=== PATIENT | male | born 1950 | race Caucasian/White ===

== ENCOUNTER 2023-11-29 09:48 | Outpatient (OUT) | payer MEDICARE, SELFPAY ==
--- NOTE | 2023-11-29 10:04 | ECG_ITS ---
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
--- NOTE | 2023-11-29 10:04 | XR_ITS ---
The [address] [address] Patient Name: YINA BOYER MRN: [id number] date: 1950 Sex: M Assigned Patient Location: [facility] Current Patient Location: [facility] Accession/Order Number: [id number] Exam Date: 11/29/2023 10:58 Report Date: 11/29/2023 12:29 At the request of: AGUSTÍN JOHANSEN Procedure: XR chest 2V PROCEDURE: XR chest 2V DATE: 11/29/2023 9:58 AM CDT COMPARISONS: None. CLINICAL INDICATION: 73 years Male Preop exam FINDINGS: The cardiomediastinal silhouette and pulmonary vasculature are within normal limits. The lungs are clear. There is no evidence of pleural effusion or pneumothorax. XR/XR chest 2V IMPRESSION: Chest radiograph is within normal limits. Electronically authenticated by: RACHELLE CALL Date: 11/29/2023 12:29
[2023-11-29 11:04] LABS: Basophils Absolute Auto 0.1 10^3/uL (0.0-0.1); Basophils Percent Auto 1.2 % (0.2-2.0); Eosinophils Absolute Auto 0.1 10^3/uL (0.0-0.7); Eosinophils Percent Auto 1.4 % (0.9-7.0); Hematocrit 38.8 % (42.0-54.0); Hemoglobin 13.7 g/dL (14.0-18.0); Immature Granulocytes Abs Auto 0.01 10^3/uL (0.00-0.03); Immature Granulocytes Pct Auto 0.2 % (0.0-0.5); Lymphocytes Absolute Auto 0.6 10^3/uL (1.2-3.8); Lymphocytes Percent Auto 12.1 % (20.5-60.0); Mean Corpuscular HGB Conc 35.3 g/dL (29.9-35.2); Mean Corpuscular Volume 84.9 fL (80.0-94.0); Mean Platelet Volume 9.5 fL (9.5-13.5); Monocytes Absolute Auto 0.5 10^3/uL (0.3-0.8); Monocytes Percent Auto 9.6 % (1.7-12.0); Neutrophils Absolute Auto 3.7 10^3/uL (1.4-6.5); Neutrophils Percent Auto 75.5 % (43.0-75.0); Platelet Count 185 10^3/uL (150-450); Red Blood Count 4.57 10^6/uL (4.70-6.10); Red Cell Distribution Width 14.6 % (11.0-15.0); White Blood Count 4.9 10^3/uL (4.0-11.0)
[2023-11-29 11:30] LABS: INR 1.01; Partial Thromboplastin Time 29.6 sec (22.3-36.2); Prothrombin Time 10.7 sec (9.0-11.6)
--- NOTE | 2023-11-29 11:44 | PM.PRESUREVA ---
History of Present Illness History of Present Illness Chief complaint: prostate ca Narrative: Patient presents for preadmission testing accompanied by his . The patient reports a history of prostate cancer with radiation treatment and Lupron injections. The patient states overall he is feeling well, he continues to have frequency with urination and incomplete bladder emptying but has no other complaints at this time. Review of Systems ROS Narrative REVIEW OF SYSTEMS: Negative except as stated in HPI, ten or more systems reviewed. Constitutional: No fever, chills, weakness ENT: No sore throat or epistaxis Cardiovascular: No edema, chest pain, palpitations, or activity intolerance Respiratory: No shortness of breath, cough, or wheezing Musculoskeletal: No joint pain or swelling Gastrointestinal: No abdominal pain, constipation, diarrhea, or vomiting Genitourinary: No dysuria or hematuria Neurological: No numbness, tingling, weakness, or headache Psychiatric: No mood changes PFSH PFSH Medical History (Updated 11/29/23 @ 11:45 by Janette Cesar NP) Hypertension ?I10 - Essential (primary) hypertension (ICD-10) High cholesterol ?E78.00 - Pure hypercholesterolemia, unspecified (ICD-10) Prostate cancer ?C61 - Malignant neoplasm of prostate (ICD-10) Diabetes ?E11.9 - Type 2 diabetes mellitus without complications (ICD-10) BPH (benign prostatic hyperplasia) ?N40.0 - Benign prostatic hyperplasia without lower urinary tract symptoms (ICD-10) Elevated PSA ?R97.20 - Elevated prostate specific antigen [PSA] (ICD-10) Surgical History (Updated 11/29/23 @ 11:14 by Janette Cesar NP) History of tonsillectomy ?Z90.89 - Acquired absence of other organs (ICD-10) Hx of prostate biopsy ?Z98.890 - Other specified postprocedural states (ICD-10) H/O colonoscopy ?Z98.890 - Other specified postprocedural states (ICD-10) Family History (Updated 11/29/23 @ 11:14 by Janette Cesar NP) Other Family history of aneurysm Family history of cancer Family history of diabetes mellitus Family history of stroke Heart disease Social History (Updated 11/29/23 @ 10:18 by Janette Cesar NP) Within the past year, how often did you have a drink containing alcohol: 2-4 times a month Smoking status: Never smoker Non-prescribed substance use: denies use Highest level of school completed/degree received: some college, no degree Meds Home Medications and Allergies Home Medications ?Medication ?Instructions ?Recorded ?Confirmed ?Type allopurinol 100 mg tablet 100 mg PO DAILY 11/29/23 11/29/23 History amlodipine 5 mg tablet 5 mg PO QPM 11/29/23 11/29/23 History apple cider vinegar 600 mg capsule mg PO 11/29/23 History bicalutamide 50 mg tablet 50 mg PO DAILY 11/29/23 11/29/23 History chlorthalidone 25 mg tablet 25 mg PO DAILY 11/29/23 11/29/23 History coenzyme Q10 30 mg capsule (Co 30 mg PO DAILY 11/29/23 11/29/23 History Q-10) cyanocobalamin (vitamin B-12) 1,000 mcg PO DAILY 11/29/23 11/29/23 History 1,000 mcg tablet (Vitamin B-12) empagliflozin 25 mg tablet 25 mg PO DAILY 11/29/23 11/29/23 History (Jardiance) metformin 1,000 mg tablet 1,000 mg PO BID 11/29/23 11/29/23 History metoprolol succinate 50 mg 50 mg PO DAILY 11/29/23 11/29/23 History tablet,extended release 24 hr omega-3 fatty acids 500 mg PO BID 11/29/23 11/29/23 History rosuvastatin 40 mg tablet 20 mg PO DAILY 11/29/23 11/29/23 History trazodone 50 mg tablet 50 mg PO DAILY 11/29/23 11/29/23 History Allergies Allergy/AdvReac Type Severity Reaction Status Date / Time bee venom protein (honey bee) Allergy swelling Verified 11/29/23 11:43 Exam Narrative Exam Narrative: Constitutional: Awake, alert, comfortable, well-appearing, nontoxic, interactive, vital signs as charted Head: Normocephalic, atraumatic Neck: Supple, normal appearance, normal range of motion, no meningeal signs, no lymphadenopathy Respiratory: No respiratory distress, breath sounds clear Cardiovascular: Regular rate and rhythm, strong and regular heart tones Abdomen: Nontender, normal bowel sounds, soft, no CVA tenderness Musculoskeletal: Normal gait, no swelling or edema Skin: No rashes or induration, no lesions, only visible skin inspected Neuro: No neurological deficits, normal sensation Psychiatric: Oriented ?3, normal affect Assessment and Plan Assessment and Plan (1) Prostate cancer: Plan [place] seed implant scheduled with Dr. Pisano December 13, 2023.
[2023-11-29 12:04] LABS: Anion Gap 13.9; BUN Creatinine Ratio 20.8; Calcium 9.5 mg/dL (8.5-10.1); Carbon Dioxide 28.5 mmol/L (21.0-32.0); Chloride 97 mmol/L (98-107); Estimated GFR (African America >60 (>=60); Estimated GFR (Non-African Ame >60 (>=60); Glucose 155 mg/dL (74-106); Potassium 3.4 mmol/L (3.5-5.1); Sodium 136 mmol/L (136-145)
== END 2023-11-29 09:49 | disposition home or self-care (01) ==
PROVIDERS: PCP Internal Medicine; Visit Provider Urology
DX: Z01.810 Encounter for preprocedural cardiovascular examination (principal); Z01.812 Encounter for preprocedural laboratory examination; Z01.818 Encounter for other preprocedural examination; C61 Malignant neoplasm of prostate
CPT/HCPCS: 71046; 80048; 85025; 85610; 85730; 93005; G0463

== ENCOUNTER 2023-12-13 11:24 | Day surgery (SDC) | payer MEDICARE, SELFPAY ==
[2023-11-29 11:15] VITALS: BP 126/79; PULSE 59; TEMP 36.3; O2SAT 100; BMI 33.6
[2023-12-13] VITALS (9 sets, daily range): BP systolic 114–131; BP diastolic 64–90; PULSE 61–73; TEMP 36.1–36.5; O2SAT 92–97; BMI 33.6
--- OUTSIDE RECORDS SUMMARY | 2023-12-13 11:46 | XMS_ITS | CCD ---
Author Organization [facility] CliniSyde Care Team Providers Care Senior Environmental Scientist Name Role Phone SRIRAM BREWSTER Primary Care Physician Unavail able Sriram Brewster DO Unavailable Sriram Brewster DO Primary Care Provider DO Sriram Brewster Primary Care Provider MD Ines Pisano Attending Provider MD Josi Capone Attending Provider [phone] Josi Capone MD Unavailable JOSI CAPONE Referring Unavailable DANISHA ZENDEJAS Attending Unavailable DO Sriram Brewster Primary Care Provider MD Primo Fisher Attending Provider MD Josi Capone Referring Provider [phone] Ines Pisano. Attending Unavailable Josi CAPONE Referring Unavailable Josi CAPONE Attending Unavailable Ines Pisano. Attending Unavailable Ines Pisano. Attending Unavailable Josi CAPONE Attending Unavailable Ines Pisano. Attending Unavailable Ines Pisano Attending Unavailable Sriram Brewster Primary Care Unavailable Ines Pisano Admitting Unavailable Ines Pisano Attending Unavailable Deborah, Sriram Primary Care Unavailable Josi Capone P Admitting Unavailable Josi Capone P Attending Unavailable Sriram Brewster Primary Care Unavailable Josi Capone Referring Unavailable Primo Fisher Admitting Unavailable Primo Fisher Attending Unavailable Deborah Sriram Primary Care Unavailable Josi Capone Admitting Unavailable Josi Capone Attending Unavailable SRIRAM BREWSTER Attending Unavailable SRIRAM BREWSTER Referring Unavailable ROSE THORNE Attending Unavailable SRIRAM BREWSTER Attending Unavailable SRIRAM BREWSTER Referring Unavailable SRIRAM BREWSTER Attending Unavailable SRIRAM BREWSTER Attending Unavailable Verónica RAMOS Referring Unavailable Verónica RAMOS Attending Unavailable IRINA CABEZAS Referring Unavailable ENGVerónica WILSON Attending Unavailable ZENA ZENDEJAS Referring Unavailable ENGVerónica WILSON Attending Unavailable ENGVerónica WILSON Attending Unavailable ENGVerónica WILSON Attending Unavailable ENGVerónica WILSON Attending Unavailable ENGMEREDITHRVerónica Attending Unavailable ENGELERVerónica Attending Unavailable IRINA CABEZAS Attending Unavailable Verónica RAMOS Attending Unavailable Verónica RAMOS Attending Unavailable IRINA CABEZAS Referring Unavailable Verónica RAMOS Attending Unavailable Allergies Allergy Classification Reported Allergen(s) Allergy Type Date of Onset Reaction(s) Facility (3 sources) Losartan Drug Allergy 3 Dizziness [facility] Work Phone: (1 source) No Known Medication Allergies; Translations: [No Known Medication Allergies] Propensity to adverse reactions (disorder) [facility] Repository Medications Current Medications Medication Drug Class(es) Dates Sig (Normalized) Sig (Original) allopurinol 100 mg oral tablet (20 sources) Xanthine Oxidase Inhibitor Start: 2009 take 1 tablet by mouth once daily allopurinol (ZYLOPRIM) 100 mg tablet Take 100 mg by mouth once daily. 2009 Active amLODIPine 5 mg oral tablet (20 sources) Dihydropyridine Calcium Channel Mariana Start: 01-02-2019 take 1 mg by mouth once daily amLODIPine 5 mg Tab mg tab(s), Oral, Daily Start Date: 04/21/23 Status: Ordered bicalutamide 50 mg oral tablet (20 sources) Androgen Receptor Inhibitor Start: 08-11-2023 End: 05-20-2024 take 1 tablet by mouth once daily bicalutamide (CASODEX) 50 mg tablet Take 1 tablet by mouth once daily. 30 tablet 6 10/23/2023 05/20/2024 Active chlorthalidone 25 mg oral tablet (20 sources) Thiazide-like Diuretic Start: 01-02-2019 End: 08-22-2023 take 1 mg by mouth once daily chlorthalidone 25 mg Tab mg tab(s), Oral, Daily Start Date: 04/21/23 Status: Ordered cider vinegar 300 mg oral tablet (3 sources) Start: 06-30-2023 take 300 mg by mouth once daily in the morning Apple Cider Vinegar Active 300 MG PO Every morning June 30, 2023 12:00am Continuous Blood Gluc Paper Conservator (FreeStyle Cynthia 3 [place]) device (3 sources) Start: 05-08-2023 Continuous Blood Gluc Paper Conservator (FreeStyle Cynthia 3 [place]) device Indications: 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) 1 Device See administration instructions 1 each 0 05/08/2023 Active Continuous Blood Gluc Sensor (FreeStyle Cynthia 2 Sensor) misc (3 sources) Start: 09-01-2022 Continuous Blood Gluc Sensor (FreeStyle Cynthia 2 Sensor) misc USE DIRECTED FOR 14 DAYS 0 09/01/2022 Active Continuous Blood Gluc Sensor (FreeStyle Cynthia 3 Sensor) misc (3 sources) Start: 05-08-2023 Continuous Blood Gluc Sensor (FreeStyle Cynthia 3 Sensor) misc Indications: 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) Inject 1 Device under the skin every 14 (fourteen) days 6 each 3 05/08/2023 Active [place] 4-Gzy-Bqg-Fish Oil (3 sources) Start: 06-30-2023 take 300-1000 mg by mouth twice daily [place] 4-Rct-Cqx-Fish Oil (Fish Oil) 300-1,000 mg capsule Active 1 CAP PO Twice daily June 30, 2023 12:00am empagliflozin 25 mg oral tablet (20 sources) Sodium-Glucose Cotransporter 2 Inhibitor Start: 06-30-2023 take 1 tablet by mouth once daily in the morning Empagliflozin (Jardiance) 25 mg tablet Active 12.5 MG PO Every morning June 30, 2023 12:00am Start: 04-21-2023 Jardiance Oral , qAM Start Date: 04/21/23 Status: Ordered Start: 01-09-2023 take 0.5 tablet by m outh once daily Jardiance 25 MG Indications: 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) TAKE 1/2 (ONE-HALF) OF A TABLET BY MOUTH DAILY 30 tablet 3 01/09/2023 Active Fish Oils (3 sources) Start: 04-21-2023 Fish Oil Oral Start Date: 04/21/23 Status: Ordered metFORMIN hydrochloride 1000 mg oral tablet (20 sources) Biguanide Start: 03-28-2023 take 1 tablet by mouth twice daily at mealtime metFORMIN (Glucophage) 1000 MG tablet Indications: 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) TAKE 1 TABLET BY MOUTH TWICE DAILY WITH MEALS 180 tablet 3 03/28/2023 Active Start: 01-02-2019 take 500 mg by mouth twice teresita ly Metformin Active 500 MG PO Twice daily January 02, 2019 12:00am metFORMIN hydrochloride 500 mg / repaglinide 2 mg oral tablet (3 sources) Glinide, Biguanide Start: 04-21-2023 metformin-repaglinide 500 mg-2 mg oral tablet 1 tab(s), Oral, BID, 60 tab(s), within 30 minutes to immediately before a meal; skip dose if meal skipped Start Date: 04/21/23 Status: Ordered 24 hr metoprolol succinate 50 mg extended release oral capsule (20 sources) beta-Adrenergic Mariana Start: 08-22-2023 take 50 mg by mouth once daily Metoprolol Succinate Active 50 MG PO Daily August 22, 2023 12:00am Start: 12-08-2022 take 1 tablet by kristy th once daily metoprolol succinate XL (Toprol-XL) 50 MG 24 hr tablet Indications: Hypertension, unspecified type (CMS/HCC) TAKE 1 TABLET BY MOUTH DAILY 90 tablet 3 12/08/2022 Active Start: 01-02-2019 End: 08-22-2023 take 1 mg by mouth twice daily Metoprolol tartrate 50 mg Tab mg tab(s), Oral, BID Start Date: 04/21/23 Status: Ordered rosuvastatin calcium 40 mg oral tablet (20 sources) HMG-CoA Reductase Inhibitor Start: 09-08-2023 rosuvastatin 40 mg T ab Refills(s) 0 Start Date: 09/08/23 Status: Ordered Start: 08-22-2023 take 1 tablet by kristy th once daily Rosuvastatin (Crestor) 10 mg tablet Active 10 MG PO Daily August 22, 2023 12:00am rosuvastatin (CR ESTOR) 40 mg tablet Take 20 mg by mouth once daily. Active terbinafine hydrochloride 10 mg/ml topical cream (2 sources) Allylamine Antifungal Start: 12-12-2022 End: 05-08-2023 terbinafine (LamISIL AT) 1 % cream Indications: Tinea corporis Apply to face bid 30 g 2 12/12/2022 05/08/2023 Discontinued (Therapy completed) traZODone hydrochloride 50 mg oral tablet (20 sources) Serotonin Reuptake Inhibitor Start: 02-22-2023 traZODONE 50 mg Tab mg tab(s), Oral Start Date: 04/21/23 Status: Ordered ubidecarenone 100 mg oral capsule (1 source) Start: 08-22-2023 Coenzyme Q10 (Coq-10) 100 mg capsule Active 100 MG PO Daily August 22, 2023 12:00am vitamin b12 1 mg oral tablet (20 sources) Vitamin B12 Start: 05-09-2023 take 1 tablet by mouth once daily cyanocobalamin (VITAMIN B-12) 1,000 mcg tab Take 1,000 mcg by mouth once daily. 05/09/2023 Active Completed/Discontinued Medications Medication Drug Class(es) Dates Sig (Normalized) Sig (Original) atorvastatin 20 mg oral tablet (20 sources) HMG-CoA Reductase Inhibitor Start: 04-21-2023 End: 09-29-2023 take 1 tablet by mouth once daily atorvastatin (LIPITOR) 20 mg tablet Take 20 mg by mouth once daily. 04/21/2023 09/29/2023 Discontinued Start: 03-01-2023 take 1 tablet by kristy th in the morning atorvastatin (Lipitor) 40 MG tablet Indications: Primary hypertension (CMS/HCC) Take 1 tablet (40 mg) by mouth in the morning. 90 tablet 3 03/01/2023 Active ciprofloxacin 500 mg oral tablet (2 sources) Quinolone Antimicrobial Start: 07-14-2023 End: 08-22-2023 take 1 tablet by mouth every two hours Ciprofloxacin Hcl (Cipro) 500 mg tablet Discontinued 500 MG PO Q12H July 14, 2023 12:00am August 22, 2023 11:11am administer dose at least 2 hrs before/6 hrs after dairy products, calcium, zinc, and/or iron-containing products Problems Active Problems Problem Classification Problem Date Documented Da te Episodic/Chronic Administrative/social admission (3 sources) Patient encounter status; Translations: [Other specified counseling] Onset: 02-09-2023 02-09-2023 Episodic Cancer of prostate (20 sources) Malignant neoplasm of prostate; Translations: [Malignant tumor of prostate] Onset: 07-27-2023 Chronic Chronic obstructive pulmonary disease and bronchiectasis (6 sources) Pulmonary emphysema; Translations: [Emphysema, unspecified] Onset: 05-08-2023 04-21-2023 Chronic Deficiency and other anemia (2 sources) Anemia; Translations: [Anemia, unspecified] 05-08-2023 Episodic Diabetes mellitus without complication (9 sources) Type 2 diabetes mellitus; Translations: [Type 2 diabetes mellitus with other diabetic neurological complication] Onset: 12-05-2022 04-21-2023 Chronic Diabetes mellitus without complication (2 sources) Glycosuria; Translations: [Glycosuria] Onset: 09-08-2023 Episodic Disorders of lipid metabolism (3 sources) Hyperlipidemia; Translations: [Hyperlipidemia, unspecified] Onset: 12-05-2022 12-05-2022 Chronic Essential hypertension (6 sources) Hypertensive disorder; Translations: [Essential (primary) hypertension] Onset: 12-05-2022 Resolved: 02-09-2023 12-05-2022 Chronic Genitourinary symptoms and ill-defined conditions (1 source) Urgent desire to urinate; Translations: [Urgency of urination] Onset: 04-21-2023 Episodic Gout and other crystal arthropathies (3 sources) Gout; Translations: [Gout, unspecified] Onset: 12-05-2022 12-05-2022 Chronic Hyperplasia of prostate (7 sources) Benign prostatic hypertrophy with outflow obstruction; Translations: [Benign prostatic hyperplasia with lower urinary tract symptoms] Onset: 04-21-2023 Chronic Miscellaneous mental health disorders (3 sources) Primary insomnia; Translations: [Primary insomnia] Onset: 02-09-2023 02-09-2023 Chronic Neoplasms of unspecified nature or uncertain behavior (1 source) Neoplastic disease; Translations: [Neoplasm of unspecified behavior of unspecified site] 08-16-2023 Episodic Nutritional deficiencies (3 sources) Cobalamin deficiency; Translations: [Deficiency of other specified B group vitamins] 05-08-2023 Episodic Other nervous system disorders (3 sources) Bilateral carpal tunnel syndrome; Translations: [Carpal tunnel syndrome, bilateral upper limbs] Onset: 12-05-2022 12-05-2022 Chronic Other nutritional; endocrine; and metabolic disorders (3 sources) Obesity caused by energy imbalance; Translations: [Other obesity due to excess calories] Onset: 12-05-2022 12-05-2022 Chronic Other nutritional; endocrine; and metabolic disorders (3 sources) Body mass index 30+ - obesity; Translations: [Body mass index (BMI) 32.0-32.9, adult] Onset: 02-09-2023 02-09-2023 Chronic Other nutritional; endocrine; and metabolic disorders (3 sources) Hyperuricemia; Translations: [Hyperuricemia without signs of inflammatory arthritis and tophaceous disease] Onset: 02-09-2023 02-09-2023 Episodic Residual codes; unclassified (3 sources) Family history of cancer; Translations: [Family history of malignant neoplasm of prostate] Onset: 04-21-2023 Episodic Residual codes; unclassified (6 sources) Family history of prostate cancer; Translations: [Family history of malignant neoplasm of prostate] Onset: 05-08-2023 04-21-2023 Episodic Residual codes; unclassified (2 sources) Amnesia; Translations: [Other amnesia] 05-08-2023 Episodic Past or Other Problems Problem Classification Problem Date Documented Da te Episodic/Chronic Other nutritional; endocrine; and metabolic disorders (3 sources) Metabolic syndrome X; Translations: [Metabolic syndrome] Onset: 12-05-2022 Resolved: 02-09-2023 02-09-2023 Chronic Other screening for suspected conditions (not mental disorders or infectious disease) (12 sources) Raised prostate specific antigen; Translations: [Elevated prostate specific antigen [PSA]] Onset: 12-05-2022 Episodic Results Test Name Value Interpretation Reference Range Facility [facility] 11-30-2023 CNOV Office Visit (RADTSA ) -- YINA BOYER ([id number]) 1950 Date Time Provider Department 11/30/23 8:30 AM Verónica RAMOS During your visit today, we recorded the following information about you: Verónica Ramos MD 11/30/2023 9:00 AM Signed UNIVERSAL PROTOCOL / SAFETY CHECKLIST Procedure to be Performed: Prostate volume study Sign In: A Moment of CARE was completed. Personnel directly involved with the procedure wore the appropriate PPE (Personal Protective Equipment). Patient/Surrogate Stated/Verified: PATIENT VERIFIED(optional for EMERGENT procedures): Patient name, Date of , Relevant allergies, and The intended procedure Time Out Communication: Intended patient and procedure match the source documents. Consent documented and matches the intended procedure. Sign Out: SIGN OUT (optional for EMERGENT procedures): No specimen collected. All instruments, equipment, possible retained foreign bodies accounted for. Verónica Ramos MD Allergies As of Date: 11/30/2023 (No Known Allergies) Date Reviewed: 11/06/2023 Reviewed by: Janette Merino RN - Fully Assessed Primary Visit Diagnosis:Malignant neoplasm of prostate (HCC) [C61] Prescriptions as of 11/30/2023 - bicalutamide (CASODEX) 50 mg tablet Take 1 tablet by mouth once daily. - rosuvastatin (CRESTOR) 40 mg tablet Take 20 mg by mouth once daily. - allopurinol (ZYLOPRIM) 100 mg tablet Take 100 mg by mouth once daily. - amLODIPine (NORVASC) 5 mg tablet Take 5 mg by mouth once daily. - chlorthalidone (HYGROTON) 25 mg tablet Take 25 mg by mouth once daily. - JARDIANCE 25 mg tablet Take 25 mg by mouth daily with breakfast. - metFORMIN (GLUCOPHAGE) 1,000 mg tablet Take 1,000 mg by mouth two times a day with meals. - metoprolol succinate ER (TOPROL XL) 50 mg 24 hr tablet Take 50 mg by mouth once daily. - traZODone (DESYREL) 50 mg tablet Take 50 mg by mouth daily at bedtime. - cyanocobalamin (VITAMIN B-12) 1,000 mcg tab Take 1,000 mcg by mouth once daily. Problem List As Of Date 11/30/2023 Noted Resolved Prostate cancer (HCC) [C61] 08/16/2023 Encounter Status:Closed by Verónica RAMOS on 9/5/24 [facility] CNOVon 11-06-2023 CNOV Office Visit (RADTSA ) -- YINA BOYER ([id number]) 1950 M Date Time Provider Department 11/06/23 10:30 AM Verónica RAMOS RADTSA During your visit today, we recorded the following information about you: Temperature Pulse Respiration Blood pressure 97.4 degrees 64/minute 18/minute 132/86 Weight 105.4 kg Verónica Ramos MD 11/06/2023 10:58 AM Signed Radiation Oncology - On Treatment Review (OTR) Note PATIENT NAME: Yina Boyer PATIENT DIAGNOSIS: Prostate adenocarcinoma, initial PSA 6.2, biopsy Nunda score 4 + 4 = 8 (grade group 4), clinical stage T2a, N0, M0, stage IIC [T1-T2, N0, M0, PSA <20, GG 4] (AJCC 8th ed.), s/p TRUS Random and MR Targeted biopsy. Prostate cancer (C61), 2019 NCCN Risk Group: High Risk Group COURSE: definitive Current dose: 4320 cGy in 24 fx Planned dose: 4500 cGy in 25 fx SUBJECTIVE: Doing well. PHYSICAL EXAM: 11/06/23 1047 BP: 132/86 Pulse: 64 Resp: 18 Temp: 36.3 ?C (97.4 ?F) SpO2: 97% Weight: 105.4 kg (232 lb 5.8 oz) KPS: 100 General Appearance: Alert and oriented. No acute distress. IMAGING/LAB RESULTS: WBC (k/uL) Date Value 10/12/2023 4.66 RBC (m/uL) Date Value 10/12/2023 5.17 Hemoglobin (g/dL) Date Value 10/12/2023 14.7 Hematocrit (%) Date Value 10/12/2023 43.0 MCV (fL) Date Value 10/12/2023 83.2 MCH (pg) Date Value 10/12/2023 28.4 MCHC (g/dL) Date Value 10/12/2023 34.2 RDW-CV (%) Date Value 10/12/2023 13.8 Platelet Count (k/uL) Date Value 10/12/2023 175 MPV (fL) Date Value 10/12/2023 10.1 TOXICITY ASSESSMENT (CTC v4.0): Fatigue:grade 1 Radiation Dermatitis: grade 0 - No symptoms Diarrhea:grade 1 Proctitis: grade 0 - No symptoms Urinary frequency: grade 1 Dysuria: grade 0 - No symptoms Urinary incontinence: grade 0 (No symptoms) Urinary retention: grade 0 - No symptoms Treatment chart checked: Yes Patient treatment site reviewed and verified:Yes Port films reviewed and current:Yes Medications started: None ASSESSMENT/PLAN: Patient doing well. Patient will finish tomorrow. Has follow-up scheduled for brachytherapy volume study and brachytherapy implant. Verónica Ramos MD Allergies As of Date: 11/06/2023 (No Known Allergies) Date Reviewed: 11/06/2023 Reviewed by: Janette Merino RN - Fully Assessed Primary Visit Diagnosis:Malignant neoplasm of prostate (HCC) [C61] Prescriptions as of 11/06/2023 - bicalutamide (CASODEX) 50 mg tablet Take 1 tablet by mouth once daily. - rosuvastatin (CRESTOR) 40 mg tablet Take 20 mg by mouth once daily. - allopurinol (ZYLOPRIM) 100 mg tablet Take 100 mg by mouth once daily. - amLODIPine (NORVASC) 5 mg tablet Take 5 mg by mouth once daily. - chlorthalidone (HYGROTON) 25 mg tablet Take 25 mg by mouth once daily. - JARDIANCE 25 mg tablet Take 25 mg by mouth daily with breakfast. - metFORMIN (GLUCOPHAGE) 1,000 mg tablet Take 1,000 mg by mouth two times a day with meals. - metoprolol succinate ER (TOPROL XL) 50 mg 24 hr tablet Take 50 mg by mouth once daily. - traZODone (DESYREL) 50 mg tablet Take 50 mg by mouth daily at bedtime. - cyanocobalamin (VITAMIN B-12) 1,000 mcg tab Take 1,000 mcg by mouth once daily. Problem List As Of Date 11/06/2023 Noted Resolved Prostate cancer (HCC) [C61] 08/16/2023 Encounter Status:Closed by Verónica RAMOS on 11/06/23 [facility] CNOVon 10-30-2023 CNOV Office Visit (RADTSA ) -- YINA BOYER ([id number]) 1950 M Date Time Provider Department 10/30/23 10:30 AM Verónica RAMOS RADTSA During your visit today, we recorded the following information about you: Temperature Pulse Respiration Blood pressure 97.6 degrees 57/minute 16/minute 129/84 Weight 105.4 kg Verónica Ramos MD 10/30/2023 10:52 AM Signed Radiation Oncology - On Treatment Review (OTR) Note PATIENT NAME: Yina Boyer PATIENT DIAGNOSIS: Prostate adenocarcinoma, initial PSA 6.2, biopsy Darlin score 4 + 4 = 8 (grade group 4), clinical stage T2a, N0, M0, stage IIC [T1-T2, N0, M0, PSA <20, GG 4] (AJCC 8th ed.), s/p TRUS Random and MR Targeted biopsy. Prostate cancer (C61), 2019 NCCN Risk Group: High Risk Group COURSE: definitive Current dose: 3420 cGy in 19 fx Planned dose: 4500 cGy in 25 fx SUBJECTIVE: Doing well. Mild suprapubic discomfort. No other changes or problems. PHYSICAL EXAM: 10/30/23 1037 BP: 129/84 Pulse: (!) 57 Resp: 16 Temp: 36.4 ?C (97.6 ?F) SpO2: 97% Weight: 105.4 kg (232 lb 5.8 oz) KPS: 100 General Appearance: Alert and oriented. No acute distress. IMAGING/LAB RESULTS: WBC (k/uL) Date Value 10/12/2023 4.66 RBC (m/uL) Date Value 10/12/2023 5.17 Hemoglobin (g/dL) Date Value 10/12/2023 14.7 Hematocrit (%) Date Value 10/12/2023 43.0 MCV (fL) Date Value 10/12/2023 83.2 MCH (pg) Date Value 10/12/2023 28.4 MCHC (g/dL) Date Value 10/12/2023 34.2 RDW-CV (%) Date Value 10/12/2023 13.8 Platelet Count (k/uL) Date Value 10/12/2023 175 MPV (fL) Date Value 10/12/2023 10.1 TOXICITY ASSESSMENT (CTC v4.0): Fatigue:grade 1 Radiation Dermatitis: grade 0 - No symptoms Diarrhea:grade 1 Proctitis: grade 0 - No symptoms Urinary frequency: grade 1 Dysuria: grade 0 - No symptoms Urinary incontinence: grade 0 (No symptoms) Urinary retention: grade 0 - No symptoms Treatment chart checked: Yes Patient treatment site reviewed and verified:Yes Port films reviewed and current:Yes Medications started: None ASSESSMENT/PLAN: Patient doing well. Discussed brachytherapy component of treatment with patient and his . Chart and images reviewed. Continue radiation as outlined. Verónica Ramos MD Allergies As of Date: 10/30/2023 (No Known Allergies) Date Reviewed: 10/30/2023 Reviewed by: Tariq Nava LPN - Fully Assessed Reason for Visit: Radiotherapy On-treatment Visit [1722] Primary Visit Diagnosis:Malignant neoplasm of prostate (HCC) [C61] Prescriptions as of 10/30/2023 - bicalutamide (CASODEX) 50 mg tablet Take 1 tablet by mouth once daily. - rosuvastatin (CRESTOR) 40 mg tablet Take 20 mg by mouth once daily. - allopurinol (ZYLOPRIM) 100 mg tablet Take 100 mg by mouth once daily. - amLODIPine (NORVASC) 5 mg tablet Take 5 mg by mouth once daily. - chlorthalidone (HYGROTON) 25 mg tablet Take 25 mg by mouth once daily. - JARDIANCE 25 mg tablet Take 25 mg by mouth daily with breakfast. - metFORMIN (GLUCOPHAGE) 1,000 mg tablet Take 1,000 mg by mouth two times a day with meals. - metoprolol succinate ER (TOPROL XL) 50 mg 24 hr tablet Take 50 mg by mouth once daily. - traZODone (DESYREL) 50 mg tablet Take 50 mg by mouth daily at bedtime. - cyanocobalamin (VITAMIN B-12) 1,000 mcg tab Take 1,000 mcg by mouth once daily. Problem List As Of Date 10/30/2023 Noted Resolved Prostate cancer (HCC) [C61] 08/16/2023 Encounter Status:Closed by Verónica RAMOS on 10/30/23 [facility] CNOVon 10-23-2023 CNOV Office Visit (RADTSA ) -- YINA BOYER ([id number]) 1950 M Date Time Provider Department 10/23/23 10:45 AM Verónica RAMOS RADDONALDOA During your visit today, we recorded the following information about you: Temperature Pulse Respiration Blood pressure 97.4 degrees 66/minute 16/minute 128/85 Weight 106 kg Verónica Ramos MD 10/23/2023 10:46 AM Signed Radiation Oncology - On Treatment Review (OTR) Note PATIENT NAME: Yina Boyer PATIENT DIAGNOSIS: Prostate adenocarcinoma, initial PSA 6.2, biopsy Dariln score 4 + 4 = 8 (grade group 4), clinical stage T2a, N0, M0, stage IIC [T1-T2, N0, M0, PSA <20, GG 4] (AJCC 8th ed.), s/p TRUS Random and MR Targeted biopsy. Prostate cancer (C61), 2019 NCCN Risk Group: High Risk Group COURSE: definitive Current dose: 2520 cGy in 14 fx Planned dose: 4500 cGy in 25 fx SUBJECTIVE: Doing well. Some issues with sleep and restless legs. Still very active. No significant bowel or bladder changes. PHYSICAL EXAM: 10/23/23 1030 BP: 128/85 Pulse: 66 Resp: 16 Temp: 36.3 ?C (97.4 ?F) SpO2: 98% Weight: 106 kg (233 lb 11 oz) KPS: 100 General Appearance: Alert and oriented. No acute distress. IMAGING/LAB RESULTS: WBC (k/uL) Date Value 10/12/2023 4.66 RBC (m/uL) Date Value 10/12/2023 5.17 Hemoglobin (g/dL) Date Value 10/12/2023 14.7 Hematocrit (%) Date Value 10/12/2023 43.0 MCV (fL) Date Value 10/12/2023 83.2 MCH (pg) Date Value 10/12/2023 28.4 MCHC (g/dL) Date Value 10/12/2023 34.2 RDW-CV (%) Date Value 10/12/2023 13.8 Platelet Count (k/uL) Date Value 10/12/2023 175 MPV (fL) Date Value 10/12/2023 10.1 TOXICITY ASSESSMENT (CTC v4.0): Fatigue:grade 1 Radiation Dermatitis: grade 0 - No symptoms Diarrhea:grade 1 Proctitis: grade 0 - No symptoms Urinary frequency: grade 1 Dysuria: grade 0 - No symptoms Urinary incontinence: grade 0 (No symptoms) Urinary retention: grade 0 - No symptoms Treatment chart checked: Yes Patient treatment site reviewed and verified:Yes Port films reviewed and current:Yes Medications started: None ASSESSMENT/PLAN: Patient doing well. Chart and images reviewed. Continue radiation as outlined. Verónica Ramos MD Allergies As of Date: 10/23/2023 (No Known Allergies) Date Reviewed: 10/23/2023 Reviewed by: Tariq Nava LPN - Fully Assessed Reason for Visit: Radiotherapy On-treatment Visit [1722] Primary Visit Diagnosis:Malignant neoplasm of prostate (HCC) [C61] Order(s):bicalutamide (CASODEX) 50 mg tabletTake 1 tablet by mouth once daily.Disp: 30 tabletRfl: 6 Prescriptions as of 10/23/2023 - bicalutamide (CASODEX) 50 mg tablet Take 1 tablet by mouth once daily. - rosuvastatin (CRESTOR) 40 mg tablet Take 20 mg by mouth once daily. - allopurinol (ZYLOPRIM) 100 mg tablet Take 100 mg by mouth once daily. - amLODIPine (NORVASC) 5 mg tablet Take 5 mg by mouth once daily. - chlorthalidone (HYGROTON) 25 mg tablet Take 25 mg by mouth once daily. - JARDIANCE 25 mg tablet Take 25 mg by mouth daily with breakfast. - metFORMIN (GLUCOPHAGE) 1,000 mg tablet Take 1,000 mg by mouth two times a day with meals. - metoprolol succinate ER (TOPROL XL) 50 mg 24 hr tablet Take 50 mg by mouth once daily. - traZODone (DESYREL) 50 mg tablet Take 50 mg by mouth daily at bedtime. - cyanocobalamin (VITAMIN B-12) 1,000 mcg tab Take 1,000 mcg by mouth once daily. Problem List As Of Date 10/23/2023 Noted Resolved Prostate cancer (HCC) [C61] 08/16/2023 Prescriptions ordered this encounter Disp Refills Start End BICALUTAMIDE 50 MG TABLET 30 t* 6 10/23/2023 05/20/2024 Route: ORAL Sig: Take 1 tablet by mouth once daily. Medications Discontinued During This Encounter Prescriptions - bicalutamide (CASODEX) 50 mg tablet (Discontinued) Take 1 tablet by mouth once daily. 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 Prostate cancer (C61), 2019 NCCN Risk Group: High Risk Group COURSE: definitive Current dose: 1620 cGy in 9 fx Planned dose: 4500 cGy in 25 fx SUBJECTIVE: Mild increase in stool frequency. Mild scrotal discomfort. No dysuria. No other new issues or problems. PHYSICAL EXAM: 10/16/23 1036 BP: 127/77 Pulse: 60 Resp: 18 Temp: 36 ?C (96.8 ?F) TempSrc: Temporal SpO2: 98% Weight: 105.4 kg (232 lb 5.8 oz) KPS: 100 General Appearance: Alert and oriented. No acute distress. IMAGING/LAB RESULTS: WBC (k/uL) Date Value 10/12/2023 4.66 RBC (m/uL) Date Value 10/12/2023 5.17 Hemoglobin (g/dL) Date Value 10/12/2023 14.7 Hematocrit (%) Date Value 10/12/2023 43.0 MCV (fL) Date Value 10/12/2023 83.2 MCH (pg) Date Value 10/12/2023 28.4 MCHC (g/dL) Date Value 10/12/2023 34.2 RDW-CV (%) Date Value 10/12/2023 13.8 Platelet Count (k/uL) Date Value 10/12/2023 175 MPV (fL) Date Value 10/12/2023 10.1 TOXICITY ASSESSMENT (CTC v4.0): Fatigue:grade 1 Radiation Dermatitis: grade 0 - No symptoms Diarrhea:grade 1 Proctitis: grade 0 - No symptoms Urinary frequency: grade 1 Dysuria: grade 0 - No symptoms Urinary incontinence: grade 0 (No symptoms) Urinary retention: grade 0 - No symptoms Treatment chart checked: Yes Patient treatment site reviewed and verified:Yes Port films reviewed and current:Yes Medications started: None ASSESSMENT/PLAN: Patient doing well. Discussed diet modification and Imodium for diarrhea if needed. 1Chart and imaging reviewed. Continue radiation as outlined. Verónica Ramos MD Allergies As of Date: 10/16/2023 (No Known Allergies) Date Reviewed: 10/16/2023 Reviewed by: Jayne Flynn MA - Fully Assessed Reason for Visit: Prostate Cancer [590] Cmt: Treatment visit Primary Visit Diagnosis:Malignant neoplasm of prostate (HCC) [C61] Prescriptions as of 10/16/2023 - rosuvastatin (CRESTOR) 40 mg tablet Take 20 mg by mouth once daily. - allopurinol (ZYLOPRIM) 100 mg tablet Take 100 mg by mouth once daily. - amLODIPine (NORVASC) 5 mg tablet Take 5 mg by mouth once daily. - chlorthalidone (HYGROTON) 25 mg tablet Take 25 mg by mouth once daily. - JARDIANCE 25 mg tablet Take 25 mg by mouth daily with breakfast. - metFORMIN (GLUCOPHAGE) 1,000 mg tablet Take 1,000 mg by mouth two times a day with meals. - metoprolol succinate ER (TOPROL XL) 50 mg 24 hr tablet Take 50 mg by mouth once daily. - traZODone (DESYREL) 50 mg tablet Take 50 mg by mouth daily at bedtime. - cyanocobalamin (VITAMIN B-12) 1,000 mcg tab Take 1,000 mcg by mouth once daily. - bicalutamide (CASODEX) 50 mg tablet Take 1 tablet by mouth once daily. Problem List As Of Date 10/16/2023 Noted Resolved Prostate cancer (HCC) [C61] 08/16/2023 Encounter Status:Closed by Verónica RAMOS on 10/16/23 Normal [facility] CBC W Auto Differential pane l (Bld)on 10-12-2023 Basophils (Bld) [#/Vol] 0.05 10*3/uL [facility] Basophils/100 WBC (Bld) 1.1 % [facility] Differential cell count method Nom (Bld) Auto [facility] Eosinophils (Bld) [#/Vol] 0.11 10*3/uL [facility] Eosinophils/100 WBC (Bld) 2.4 % [facility] Erythrocyte distribution width (RBC) [Ratio] 13.8 % 11.5 - 15.0 % [facility] Hematocrit (Bld) [Volume fraction] 43.0 % 39.0 - 51.0 % [facility] Hemoglobin (Bld) [Mass/Vol] 14.7 g/dL 13.0 - 17.0 g/dL [facility] Immature granulocytes (Bld) [#/Vol] [facility] Immature granulocytes/100 WBC (Bld) 0.4 % [facility] Lymphocytes (Bld) [#/Vol] 1.27 10*3/uL [facility] Lymphocytes/100 WBC (Bld) 27.3 % [facility] MCH (RBC) [Entitic mass] 28.4 pg 26.0 - 34.0 pg [facility] MCHC (RBC) [Mass/Vol] 34.2 g/dL 30.5 - 36.0 g/dL [facility] MCV (RBC) [Entitic vol] 83.2 fL 80.0 - 100.0 fL [facility] Monocytes (Bld) [#/Vol] 0.34 10*3/uL [facility] Monocytes/100 WBC (Bld) 7.3 % [facility] Neutrophils (Bld) [#/Vol] 2.87 10*3/uL [facility] Neutrophils/100 WBC (Bld) 61.5 % [facility] Nucleated RBC (Bld) [#/Vol] [facility] Nucleated RBC/100 WBC (Bld) [Ratio] 0.0 % /100 WBC [facility] Platelet mean volume (Bld) [Entitic vol] 10.1 fL 9.0 - 12.7 fL [facility] Platelets (Bld) [#/Vol] 175 10*3/uL [facility] RBC (Bld) [#/Vol] 5.17 10*6/uL 4.20 - 6.0 0 m/uL [facility] WBC (Bld) [#/Vol] 4.66 10*3/uL [facility] Basophils (Bld) [#/Vol] 0.05 10*3/uL Normal <0.11 [facility] Comment on above: Order Comment: Speci men Type: BLOOD SPECIMENOrdering Facility: [facility] Address: [address] [place] [address] Performed By: #### 5 7021-8 ####[facility] LABCLIA [id number] [place] [address] Basophils/100 WBC (Bld) 1.1 % Normal [facility] Comment on above: Order Comment: Speci men Type: BLOOD SPECIMENOrdering Facility: [facility] Address: [address] [place] [address] Performed By: #### 5 7021-8 ####[facility] LABCLIA [id number] [place] [address] Differential cell count method Nom (Bld) Auto Normal [facility] Comment on above: Order Comment: Speci men Type: BLOOD SPECIMENOrdering Facility: [facility] Address: [address] [place] [address] Performed By: #### 5 7021-8 ####[facility] LABCLIA [id number] [place] [address] Eosinophils (Bld) [#/Vol] 0.11 10*3/uL Normal <0.46 [facility] Comment on above: Order Comment: Speci men Type: BLOOD SPECIMENOrdering Facility: [facility] Address: [address] [place] [address] Performed By: #### 5 7021-8 ####[facility] LABCLIA [id number] [place] [address] Eosinophils/100 WBC (Bld) 2.4 % Normal [facility] Comment on above: Order Comment: Speci men Type: BLOOD SPECIMENOrdering Facility: [facility] Address: [address] [place] [address] Performed By: #### 5 7021-8 ####[facility] LABCLIA [id number] [place] [address] Erythrocyte distribution width (RBC) [Ratio] 13.8 % Normal 11.5-15.0 [facility] Comment on above: Order Comment: Speci men Type: BLOOD SPECIMENOrdering Facility: [facility] Address: [address] [place] [address] Performed By: #### 5 7021-8 ####[facility] LABCLIA [id number] [place] [address] Hematocrit (Bld) [Volume fraction] 43.0 % Normal 39.0-51.0 [facility] Comment on above: Order Comment: Speci men Type: BLOOD SPECIMENOrdering Facility: [facility] Address: [address] [place] [address] Performed By: #### 5 7021-8 ####[facility] LABCLIA [id number] [place] [address] Hemoglobin (Bld) [Mass/Vol] 14.7 g/dL Normal 13.0-17.0 [facility] Comment on above: Order Comment: Speci men Type: BLOOD SPECIMENOrdering Facility: [facility] Address: [address] [place] [address] Performed By: #### 5 7021-8 ####[facility] LABCLIA [id number] [place] [address] Immature granulocytes (Bld) [#/Vol] 10*3/uL Normal <0.10 [facility] Comment on above: Order Comment: Speci men Type: BLOOD SPECIMENOrdering Facility: [facility] Address: [address] [place] [address] Performed By: #### 5 7021-8 ####[facility] LABCLIA [id number] [place] [address] Immature granulocytes/100 WBC (Bld) 0.4 % Normal [facility] Comment on above: Order Comment: Speci men Type: BLOOD SPECIMENOrdering Facility: [facility] Address: [address] [place] [address] Performed By: #### 5 7021-8 ####[facility] LABCLIA [id number] [place] [address] Lymphocytes (Bld) [#/Vol] 1.27 10*3/uL Normal 1.00-4.00 [facility] Comment on above: Order Comment: Speci men Type: BLOOD SPECIMENOrdering Facility: [facility] Address: [address] [place] [address] Performed By: #### 5 7021-8 ####[facility] LABCLIA [id number] [place] [address] Lymphocytes/100 WBC (Bld) 27.3 % Normal [facility] Comment on above: Order Comment: Speci men Type: BLOOD SPECIMENOrdering Facility: [facility] Address: [address] [place] [address] Performed By: #### 5 7021-8 ####[facility] LABCLIA [id number] [place] [address] MCH (RBC) [Entitic mass] 28.4 pg Normal 26.0-34.0 [facility] Comment on above: Order Comment: Speci men Type: BLOOD SPECIMENOrdering Facility: [facility] Address: [address] [place] [address] Performed By: #### 5 7021-8 ####[facility] LABCLIA [id number] [place] [address] MCHC (RBC) [Mass/Vol] 34.2 g/dL Normal 30.5-36.0 [facility] Comment on above: Order Comment: Speci men Type: BLOOD SPECIMENOrdering Facility: [facility] Address: [address] [place] [address] Performed By: #### 5 7021-8 ####[facility] LABCLIA [id number] [place] [address] MCV (RBC) [Entitic vol] 83.2 fL Normal 80.0-100.0 [facility] Comment on above: Order Comment: Speci men Type: BLOOD SPECIMENOrdering Facility: [facility] Address: [address] [place] [address] Performed By: #### 5 7021-8 ####[facility] LABCLIA [id number] [place] [address] Monocytes (Bld) [#/Vol] 0.34 10*3/uL Normal <0.87 [facility] Comment on above: Order Comment: Speci men Type: BLOOD SPECIMENOrdering Facility: [facility] Address: [address] [place] [address] Performed By: #### 5 7021-8 ####[facility] LABCLIA [id number] [place] [address] Monocytes/100 WBC (Bld) 7.3 % Normal [facility] Comment on above: Order Comment: Speci men Type: BLOOD SPECIMENOrdering Facility: [facility] Address: [address] [place] [address] Performed By: #### 5 7021-8 ####[facility] LABCLIA [id number] [place] [address] Neutrophils (Bld) [#/Vol] 2.87 10*3/uL Normal 1.45-7.50 [facility] Comment on above: Order Comment: Speci men Type: BLOOD SPECIMENOrdering Facility: [facility] Address: [address] [place] [address] Performed By: #### 5 7021-8 ####[facility] LABCLIA [id number] [place] [address] Neutrophils/100 WBC (Bld) 61.5 % Normal [facility] Comment on above: Order Comment: Speci men Type: BLOOD SPECIMENOrdering Facility: [facility] Address: [address] [place] [address] Performed By: #### 5 7021-8 ####[facility] LABCLIA [id number] [place] [address] Nucleated RBC (Bld) [#/Vol] 10*3/uL Normal <0.01 [facility] Comment on above: Order Comment: Speci men Type: BLOOD SPECIMENOrdering Facility: [facility] Address: [address] [place] [address] Performed By: #### 5 7021-8 ####[facility] LABCLIA [id number] [place] [address] Nucleated RBC/100 WBC (Bld) [Ratio] 0.0 /100 WBC Normal [facility] Comment on above: Order Comment: Speci men Type: BLOOD SPECIMENOrdering Facility: [facility] Address: [address] [place] [address] Performed By: #### 5 7021-8 ####[facility] LABCLIA [id number] [place] [address] Platelet mean volume (Bld) [Entitic vol] 10.1 fL Normal 9.0-12.7 [facility] Comment on above: Order Comment: Speci men Type: BLOOD SPECIMENOrdering Facility: [facility] Address: [address] [place] [address] Performed By: #### 5 7021-8 ####[facility] LABIA [id number] [place] [address] Platelets (Bld) [#/Vol] 175 10*3/uL Normal 150-400 [facility] Comment on above: Order Comment: Speci men Type: BLOOD SPECIMENOrdering Facility: [facility] Address: [address] [place] [address] Performed By: #### 5 7021-8 ####[facility] LABCLIA [id number] [place] [address] RBC (Bld) [#/Vol] 5.17 10*6/uL Normal 4.20-6.00 [facility] Comment on above: Order Comment: Speci men Type: BLOOD SPECIMENOrdering Facility: [facility] Address: [address] [place] [address] Performed By: #### 5 7021-8 ####[facility] LABIA [id number] [place] [address] WBC (Bld) [#/Vol] 4.66 10*3/uL Normal 3.70-11.00 [facility] Comment on above: Order Comment: Speci men Type: BLOOD SPECIMENOrdering Facility: [facility] Address: [address] [place] [address] Performed By: #### 5 7021-8 ####[facility] LABCLIA [id number] [place] [address] CNOVon 10-12-2023 CNOV Office Visit (RADTSA ) -- YINA BOYER ([id number]) 1950 M Date Time Provider Department 10/12/23 10:30 AM LAB/PORT RADT JAMES RADTSA During your visit today, we recorded the following information about you: Tariq Nava LPN 10/12/2023 10:14 AM Signed Yina Boyer presents in office today for: Lab Draw only . Ordering Provider: Edison Ramos M.D. Test (s) ordered: CBC Method for obtaining blood: Phlebotomy was performed, accessing left antecubital vein. Needle removed intact. Dressing secured. Patient denies discomfort, dizziness, light-headedness or weakness and left the department without assist. Tariq Nava LPN Allergies As of Date: 10/12/2023 (No Known Allergies) Date Reviewed: 10/09/2023 Reviewed by: Janette Merino, JARET - Fully Assessed Visit Diagnosis:Prostate cancer (HCC) [C61] Order(s):COMPLETE BLOOD COUNT AND DIFFERENTIAL [SQCBCDIF] Order #: [id number]. #:[id number] Prescriptions as of 10/12/2023 - rosuvastatin (CRESTOR) 40 mg tablet Take 20 mg by mouth once daily. - allopurinol (ZYLOPRIM) 100 mg tablet Take 100 mg by mouth once daily. - amLODIPine (NORVASC) 5 mg tablet Take 5 mg by mouth once daily. - chlorthalidone (HYGROTON) 25 mg tablet Take 25 mg by mouth once daily. - JARDIANCE 25 mg tablet Take 25 mg by mouth daily with breakfast. - metFORMIN (GLUCOPHAGE) 1,000 mg tablet Take 1,000 mg by mouth two times a day with meals. - metoprolol succinate ER (TOPROL XL) 50 mg 24 hr tablet Take 50 mg by mouth once daily. - traZODone (DESYREL) 50 mg tablet Take 50 mg by mouth daily at bedtime. - cyanocobalamin (VITAMIN B-12) 1,000 mcg tab Take 1,000 mcg by mouth once daily. - bicalutamide (CASODEX) 50 mg tablet Take 1 tablet by mouth once daily. Problem List As Of Date 10/12/2023 Noted Resolved Prostate cancer (HCC) [C61] 08/16/2023 Visit Notes: >> Tariq Nava LPN [facility] Oct 12, 2023 10:14 AM Status: Signed Yina Boyer presents in office today for: Lab Draw only . Ordering Provider: Edison Ramos M.D. Test (s) ordered: CBC Method for obtaining blood: Phlebotomy was performed, accessing left antecubital vein. Needle removed intact. Dressing secured. Patient denies discomfort, dizziness, light-headedness or weakness and left the department without assist. Tariq Nava LPN Encounter Status:Closed by TARIQ NAVA on 10/12/23 [facility] CNOVon 10-09-2023 [facility] Office Visit (RADTSA ) -- YINA BOYER ([id number]) 1950 M Date Time Provider Department 10/09/23 10:45 AM Verónica RAMOS During your visit today, we recorded the following information about you: Temperature Pulse Respiration Blood pressure 96.5 degrees 65/minute 18/minute 134/81 Weight 106 kg Verónica Ramos MD 10/09/2023 10:40 AM Signed Radiation Oncology - On Treatment Review (OTR) Note PATIENT NAME: Yina Boyer PATIENT DIAGNOSIS: Prostate adenocarcinoma, initial PSA 6.2, biopsy Darlin score 4 + 4 = 8 (grade group 4), clinical stage T2a, N0, M0, stage IIC [T1-T2, N0, M0, PSA <20, GG 4] (AJCC 8th ed.), s/p TRUS Random and MR Targeted biopsy. Prostate cancer (C61), 2019 NCCN Risk Group: High Risk Group COURSE: definitive Current dose: 720 cGy in 4 fx Planned dose: 4500 cGy in 25 fx SUBJECTIVE: Mild increase in urinary urgency and frequency. PHYSICAL EXAM: KPS: 100 General Appearance: Alert and oriented. No acute distress. IMAGING/LAB RESULTS: None TOXICITY ASSESSMENT (CTC v4.0): Fatigue:grade 0 - No symptoms Radiation Dermatitis: grade 0 - No symptoms Diarrhea:grade 0 - No symptoms Proctitis: grade 0 - No symptoms Urinary frequency: grade 1 Dysuria: grade 0 - No symptoms Urinary incontinence: grade 0 (No symptoms) Urinary retention: grade 0 - No symptoms Treatment chart checked: Yes Patient treatment site reviewed and verified:Yes Port films reviewed and current:Yes Medications started: None ASSESSMENT/PLAN: Patient doing well. Chart and imaging reviewed. Continue radiation as outlined. Verónica Ramos MD Allergies As of Date: 10/09/2023 (No Known Allergies) Date Reviewed: 10/09/2023 Reviewed by: Janette Merino RN - Fully Assessed Primary Visit Diagnosis:Prostate cancer (HCC) [C61] Prescriptions as of 10/09/2023 - rosuvastatin (CRESTOR) 40 mg tablet Take 20 mg by mouth once daily. - allopurinol (ZYLOPRIM) 100 mg tablet Take 100 mg by mouth once daily. - amLODIPine (NORVASC) 5 mg tablet Take 5 mg by mouth once daily. - chlorthalidone (HYGROTON) 25 mg tablet Take 25 mg by mouth once daily. - JARDIANCE 25 mg tablet Take 25 mg by mouth daily with breakfast. - metFORMIN (GLUCOPHAGE) 1,000 mg tablet Take 1,000 mg by mouth two times a day with meals. - metoprolol succinate ER (TOPROL XL) 50 mg 24 hr tablet Take 50 mg by mouth once daily. - traZODone (DESYREL) 50 mg tablet Take 50 mg by mouth daily at bedtime. - cyanocobalamin (VITAMIN B-12) 1,000 mcg tab Take 1,000 mcg by mouth once daily. - bicalutamide (CASODEX) 50 mg tablet Take 1 tablet by mouth once daily. Problem List As Of Date 10/09/2023 Noted Resolved Prostate cancer (HCC) [C61] 08/16/2023 Encounter Status:Closed by Verónica RAMOS on 10/09/23 [facility] CNOVon 10-04-2023 CNOV Office Visit (RADTSA ) -- YINA BOYER ([id number]) 1950 Date Time Provider Department 10/04/23 11:30 AM Verónica RAMOSA During your visit today, we recorded the following information about you: Temperature Pulse Respiration Blood pressure 97.5 degrees 58/minute 16/minute 131/87 Weight 110 kg Tariq Nava LPN 10/04/2023 12:02 PM Signed On body monitor device removed. Patient is aware he is not to use it the duration of his radiation therapy. Jaret Smith G Phillip, MD 10/04/2023 12:02 PM Signed Radiation Oncology - On Treatment Review (OTR) Note PATIENT NAME: Yina Boyer PATIENT DIAGNOSIS: Prostate adenocarcinoma, initial PSA 6.2, biopsy Darlin score 4 + 4 = 8 (grade group 4), clinical stage T2a, N0, M0, stage IIC [T1-T2, N0, M0, PSA <20, GG 4] (AJCC 8th ed.), s/p TRUS Random and MR Targeted biopsy. Prostate cancer (C61), 2019 NCCN Risk Group: High Risk Group COURSE: definitive Current dose: 180 cGy in 1 fx Planned dose: 4500 cGy in 25 fx SUBJECTIVE: Here to start radiation, doing well. PHYSICAL EXAM: KPS: 100 General Appearance: Alert and oriented. No acute distress. IMAGING/LAB RESULTS: None TOXICITY ASSESSMENT (CTC v4.0): Fatigue:grade 0 - No symptoms Radiation Dermatitis: grade 0 - No symptoms Diarrhea:grade 0 - No symptoms Proctitis: grade 0 - No symptoms Urinary frequency: grade 0 - No symptoms Dysuria: grade 0 - No symptoms Urinary incontinence: grade 0 (No symptoms) Urinary retention: grade 0 - No symptoms Treatment chart checked: Yes Patient treatment site reviewed and verified:Yes Port films reviewed and current:Yes Medications started: None ASSESSMENT/PLAN: Patient starting radiation today. Plan of care and expectations again reviewed. Plan, MU calculations and qa report reviewed. Initial imaging including cone beam ct and verification reviewed and approved. First treatment given. Continue radiation as prescribed. Verónica Ramos MD Allergies As of Date: 10/04/2023 (No Known Allergies) Date Reviewed: 10/04/2023 Reviewed by: Tariq Nava LPN - Fully Assessed Reason for Visit: Radiotherapy On-treatment Visit [1722] Primary Visit Diagnosis:Prostate cancer (HCC) [C61] Prescriptions as of 10/04/2023 - rosuvastatin (CRESTOR) 40 mg tablet Take 20 mg by mouth once daily. - allopurinol (ZYLOPRIM) 100 mg tablet Take 100 mg by mouth once daily. - amLODIPine (NORVASC) 5 mg tablet Take 5 mg by mouth once daily. - chlorthalidone (HYGROTON) 25 mg tablet Take 25 mg by mouth once daily. - JARDIANCE 25 mg tablet Take 25 mg by mouth daily with breakfast. - metFORMIN (GLUCOPHAGE) 1,000 mg tablet Take 1,000 mg by mouth two times a day with meals. - metoprolol succinate ER (TOPROL XL) 50 mg 24 hr tablet Take 50 mg by mouth once daily. - traZODone (DESYREL) 50 mg tablet Take 50 mg by mouth daily at bedtime. - cyanocobalamin (VITAMIN B-12) 1,000 mcg tab Take 1,000 mcg by mouth once daily. - bicalutamide (CASODEX) 50 mg tablet Take 1 tablet by mouth once daily. Problem List As Of Date 10/04/2023 Noted Resolved Prostate cancer (HCC) [C61] 08/16/2023 Visit Notes: >> Tariq Nava LPN MonOct 04, 2023 11:17 AM Status: Signed On body monitor device removed. Patient is aware he is not to use it the duration of his radiation therapy. Tariq Nava Rn Encounter Status:Closed by Verónica RAMOS on 10/04/23 [facility] 10-02-2023 CNPN Telephone ([employer]) -- MERLINYINA M ([id number]) 1950 M Date Time Provider Department 10/02/23 Verónica RAMOS [employer] During your visit today, we recorded the following information about you: Tariq Nava LPN 10/02/2023 3:37 PM Signed CBC order pending your approval. Tariq Nava RN Allergies As of Date: 10/02/2023 (No Known Allergies) Date Reviewed: 08/23/2023 Reviewed by: Janette Merino RN - Fully Assessed Reason for Visit: Orders [681] Primary Visit Diagnosis:Prostate cancer (HCC) [C61] Order(s):COMPLETE BLOOD COUNT AND DIFFERENTIAL [SQCBCDIF] Order #: [id number] FUTURE Prescriptions as of 10/04/2023 - rosuvastatin (CRESTOR) 40 mg tablet Take 20 mg by mouth once daily. - allopurinol (ZYLOPRIM) 100 mg tablet Take 100 mg by mouth once daily. - amLODIPine (NORVASC) 5 mg tablet Take 5 mg by mouth once daily. - chlorthalidone (HYGROTON) 25 mg tablet Take 25 mg by mouth once daily. - JARDIANCE 25 mg tablet Take 25 mg by mouth daily with breakfast. - metFORMIN (GLUCOPHAGE) 1,000 mg tablet Take 1,000 mg by mouth two times a day with meals. - metoprolol succinate ER (TOPROL XL) 50 mg 24 hr tablet Take 50 mg by mouth once daily. - traZODone (DESYREL) 50 mg tablet Take 50 mg by mouth daily at bedtime. - cyanocobalamin (VITAMIN B-12) 1,000 mcg tab Take 1,000 mcg by mouth once daily. - bicalutamide (CASODEX) 50 mg tablet Take 1 tablet by mouth once daily. Problem List As Of Date 10/02/2023 Noted Resolved Prostate cancer (HCC) [C61] 08/16/2023 Encounter Status:Closed by TARIQ NAVA on 10/04/23 [facility] CNOVon 09-20-2023 CNOV Office Visit (RADTSA ) -- YINA BOYER ([id number]) 1950 Date Time Provider Department 09/20/23 11:00 AM Verónica RAMOS During your visit today, we recorded the following information about you: Verónica Ramos MD 09/29/2023 12:41 PM Signed sim Allergies As of Date: 09/20/2023 (No Known Allergies) Date Reviewed: 08/23/2023 Reviewed by: Janette Merino, RN - Fully Assessed Reason for Visit: Simulation Request Form [2808] Primary Visit Diagnosis:Prostate cancer (HCC) [C61] Order(s):RADIATION TREATMENT PER RADIATION ONCOLOGIST PLAN [8499917] Order #: [id number]: 1 [facility] PLANNING RADIATION ONCOLOGY [5364195] Order #: [id number] Prescriptions as of 09/29/2023 - rosuvastatin (CRESTOR) 40 mg tablet Take 20 mg by mouth once daily. - allopurinol (ZYLOPRIM) 100 mg tablet Take 100 mg by mouth once daily. - amLODIPine (NORVASC) 5 mg tablet Take 5 mg by mouth once daily. - chlorthalidone (HYGROTON) 25 mg tablet Take 25 mg by mouth once daily. - JARDIANCE 25 mg tablet Take 25 mg by mouth daily with breakfast. - metFORMIN (GLUCOPHAGE) 1,000 mg tablet Take 1,000 mg by mouth two times a day with meals. - metoprolol succinate ER (TOPROL XL) 50 mg 24 hr tablet Take 50 mg by mouth once daily. - traZODone (DESYREL) 50 mg tablet Take 50 mg by mouth daily at bedtime. - cyanocobalamin (VITAMIN B-12) 1,000 mcg tab Take 1,000 mcg by mouth once daily. - bicalutamide (CASODEX) 50 mg tablet Take 1 tablet by mouth once daily. Problem List As Of Date 09/20/2023 Noted Resolved Prostate cancer (HCC) [C61] 08/16/2023 Medications Discontinued During This Encounter Prescriptions - bicalutamide (CASODEX) 50 mg tablet (Discontinued) Take 1 tablet by mouth once daily. - atorvastatin (LIPITOR) 20 mg tablet (Discontinued) Take 20 mg by mouth once daily. Encounter Status:Closed by Verónica RAMOS on 09/29/23 [facility] 09-20-2023 [facility] Telephone (RADTribaLearningA) -- MARIANELAYINA Lynch ([id number]) 1950 M Date Time Provider Department 09/20/23 Verónica RAMOS MugenUpDONALDOA During your visit today, we recorded the following information about you: Tariq Nava LPN 09/20/2023 11:13 AM Signed I called and notified Cori with Dr. Rose Thorne's office that Booker will be starting radiation therapy likely within the next 1-2 weeks and he is unable to wear his on body glucose monitor for the length of his treatments. Patient states he had a glucometer, lancets, and test strips a couple years ago and is familiar with the process of self-stick glucose monitoring. Patient removed his on body device for his SIM and is aware he is able to put on a new one when he returns home. He is also aware he is not able to wear the device for the length of his radiation treatments. Cori states she will place a message out for Dr. Aldair Thorne with the above information. I notified Booker that he should expect a call from Dr. Thorne's office with further instructions. Booker denies questions at this time. Tariq Nava RN Allergies As of Date: 09/20/2023 (No Known Allergies) Date Reviewed: 08/23/2023 Reviewed by: Janette Merino RN - Fully Assessed Prescriptions as of 10/02/2023 - rosuvastatin (CRESTOR) 40 mg tablet Take 20 mg by mouth once daily. - allopurinol (ZYLOPRIM) 100 mg tablet Take 100 mg by mouth once daily. - amLODIPine (NORVASC) 5 mg tablet Take 5 mg by mouth once daily. - chlorthalidone (HYGROTON) 25 mg tablet Take 25 mg by mouth once daily. - JARDIANCE 25 mg tablet Take 25 mg by mouth daily with breakfast. - metFORMIN (GLUCOPHAGE) 1,000 mg tablet Take 1,000 mg by mouth two times a day with meals. - metoprolol succinate ER (TOPROL XL) 50 mg 24 hr tablet Take 50 mg by mouth once daily. - traZODone (DESYREL) 50 mg tablet Take 50 mg by mouth daily at bedtime. - cyanocobalamin (VITAMIN B-12) 1,000 mcg tab Take 1,000 mcg by mouth once daily. - bicalutamide (CASODEX) 50 mg tablet Take 1 tablet by mouth once daily. Problem List As Of Date 09/20/2023 Noted Resolved Prostate cancer (HCC) [C61] 08/16/2023 Encounter Status:Closed by TARIQ NAVA on 10/02/23 Normal [facility] Formson 09-14-2023 Forms [id number]#1.00[facility] Lab Reportson 09-12-2023 Lab Reports [id number]#1.00[facility] Lab Reports [id number]#1.00[facility] RAD - Nuclear Medicine Repor ton 09-12-2023 RAD - Nuclear Medicine Report [id number]#1.00[facility] Screenson 09-12-2023 Screens [id number]#1.00[facility] Screens [id number]#1.00[facility] Ambulatory Visit Summaryon 0 09-08-2023 Ambulatory Visit Summary BOOKER BOYER :1950 Visit Date:09/08/2023 Ambulatory Visit Instructions Your Diagnosis Prostate CA Family history of prostate cancer in father Glucosuria Your Care Team Attending Physician - Ines Pisano MD Primary Care Physician - SRIRAM BREWSTER DO This Is Your Medications List Contact prescribing physician if questions or concerns allopurinol (allopurinol 100 mg Tab) amlodipine (amLODIPine 5 mg Tab) bicalutamide (bicalutamide 50 mg Tab) chlorthalidone (chlorthalidone 25 mg Tab) empagliflozin (Jardiance) metformin-repaglinide (metformin-repaglinide 500 mg-2 mg oral tablet) metoprolol (Metoprolol tartrate 50 mg Tab) omega-3 polyunsaturated fatty acids (Fish Oil) rosuvastatin (rosuvastatin 40 mg Tab) trazodone (traZODONE 50 mg Tab) Procedures Performed Colonoscopy. Discharge Vitals Temperature (Temporal Artery) 37 ?C Heart Rate (Peripheral) 71 Respiratory Rate 16 Blood Pressure 117/83 Height 178 cm Height 70 in Weight 107 kg Weight 235.4 lb BMI 33.77 What to do next Scheduled Follow-Up Appointments Monday 9:00 AM EDT With: Ines Pisano MD Where: [facility] Patient Educationon 09-08-19 24 Patient Education Oncology Prostate Cancer The prostate is a small gland that produces fluid that makes up semen (seminal fluid). It is located below the bladder in men, in front of the rectum. Prostate cancer is the abnormal growth of cells in the prostate gland. What are the causes? The exact cause of this condition is not known. What increases the risk? You are more likely to develop this condition if: ? You are 65 years of age or older. ? You have a family history of prostate cancer. ? You have a family history of breast and ovarian cancer. ? You have genes that are passed from parent to child (inherited), such as BRCA1 and BRCA2. ? You have Lancaster syndrome. men and men of descent are diagnosed with prostate cancer at higher rates than other men. The reasons for this are not well understood and are likely due to a combination of genetic and environmental factors. What are the signs or symptoms? Symptoms of this condition include: ? Problems with urination. This may include: ? A weak or interrupted flow of urine. ? Trouble starting or stopping urination. ? Trouble emptying the bladder all the way. ? The need to urinate more often, especially at night. ? Blood in urine or semen. ? Persistent pain or discomfort in the lower back, lower abdomen, or hips. ? Trouble getting an erection. ? Weakness or numbness in the legs or feet. How is this diagnosed? This condition can be diagnosed with: ? A digital rectal exam. For this exam, a health care provider inserts a gloved finger into the rectum to feel the prostate gland. ? A blood test called a prostate-specific antigen (PSA) test. ? A procedure in which a sample of tissue is taken from the prostate and checked under a microscope (prostate biopsy). ? An imaging test called transrectal ultrasonography. Once the condition is diagnosed, tests will be done to determine how far the cancer has spread. This is called staging the cancer. Staging may involve imaging tests, such as a bone scan, CT scan, PET scan, or MRI. Stages of prostate cancer The stages of prostate cancer are as follows: ? Stage 1 (I). At this stage, the cancer is found in the prostate only. The cancer is not visible on imaging tests, and it is usually found by accident, such as during prostate surgery. ? Stage 2 (II). At this stage, the cancer is more advanced than it is in stage 1, but the cancer has not spread outside the prostate. ? Stage 3 (III). At this stage, the cancer has spread beyond the outer layer of the prostate to nearby tissues. The cancer may be found in the seminal vesicles, which are near the bladder and the prostate. ? Stage 4 (IV). At this stage, the cancer has spread to other parts of the body, such as the lymph nodes, bones, bladder, rectum, liver, or lungs. Prostate cancer grading Prostate cancer is also graded according to how the cancer cells look under a microscope. This is called the Nunda score and the total score can range from 6?10, indicating how likely it is that the cancer will spread (metastasize) to other parts of the body. The higher the score, the greater the likelihood that the cancer will spread. ? Nunda 6 or lower: This indicates that the cancer cells look similar to normal prostate cells (well differentiated). ? Nunda 7: This indicates that the cancer cells look somewhat similar to normal prostate cells (moderately differentiated). ? Nunda 8, 9, or 10: This indicates that the cancer cells look very different than normal prostate cells (poorly differentiated). How is this treated? Treatment for this condition depends on several factors, including the stage of the cancer, your age, personal preferences, and your overall health. Talk with your health care provider about treatment options that are recommended for you. Common treatments include: ? Observation for early stage prostate cancer (active surveillance). This involves having exams, blood tests, and in some cases, more biopsies. For some men, this is the only treatment needed. ? Surgery. Types of surgeries include: ? Open surgery (radical prostatectomy). In this surgery, a larger incision is made to remove the prostate. ? A laparoscopic radical prostatectomy. This is a surgery to remove the prostate and lymph nodes through several small incisions. It is often referred to as a minimally invasive surgery. ? A robotic radical prostatectomy. This is laparoscopic surgery to remove the prostate and lymph nodes with the help of robotic arms that are controlled by the surgeon. ? Cryoablation. This is surgery to freeze and destroy cancer cells. ? Radiation treatment. Types of radiation treatment include: ? External beam radiation. This type aims beams of radiation from outside the body at the prostate to destroy cancerous cells. ? Brachytherapy. This type uses radioactive needles, seeds, wires, or tubes that are implanted into the prostate gland. Like external be (more content not included)... Normal [facility] Urology Office/Clinic Noteon 09-08-2023 Urology Office/Clinic Note Chief Complaint Pt is here for 1 month w/ Lupron HPI Staff Pt here for 5 wk f/u and Lupron injection. Previous DX: prostate ca, Elevated PSA, Family hx of prostate cancer (father), DM type II. Prior OV with [facility]: referred to Dr Fisher and Dr Cabezas. Rad onc 08/16/23 - Decided to undergo EBRT and ADT. Rad onc 08/22/23 - Discussed IMRT and Decipher. Recommended short-term ADT for 6 mos pending Decipher, up to 2 yrs if high risk. Start Bicalutamide from [facility] for 21 days followed by Lupron. Discussed genetics referral. PSMA PET 08/16/23 - Neg for mets. PSA: 01/23/18 - 1.90 11/19/21 - 4.20 & 17% 03/14/22 - 4.14 08/01/22 - 1.90 & 16% 02/16/23 - 5.17 03/29/23 - 6.20 & 16% 08/22/23 - 5.90 08/24/23 - 5.76 Dysuria: denies Incomplete bladder emptying: denies Hematuria: denies Frequency: 6x a day Urgency: denies Nocturia: 1x a night Stream: steady stream Leaking: denies Post void dripping: denies Wearing pads/ Depends: denies Urge incontinence: denies Stress incontinence: denies Incontinence without Sensory Awareness: denies Abdominal pain: denies Flank pain: denies Sexual complaints: _ History of Present Illness Tests reviewed: reviewed UA, PSA, and external consult notes. I have reviewed the previous health record information and history for this patient from Dr. Pisano and external providers I have reviewed and verified the staff HPI to be accurate for this encounter. There have been no associated fever, chills, flank pain, or blood in the urine. Denies any urinary infections since last encounter. Review of Systems PHQ Score Initial Depression Screen Score: 0 SCORE ROS - Provider Constitutional: denies weight loss, denies hot flashes. Eyes: denies eye problems. Gastrointestinal: denies nausea, denies vomiting. Cardiovascular: denies chest pain or angina. Integumentary: no dryness Musculoskeletal: denies musculoskeletal symptoms. ENMT: denies otolaryngeal symptoms. Respiratory: no shortness of breath. Heme/Lymph: denies easy bleeding tendency, denies easy bruising tendency. Psychiatric: no confusion, no anxiety. Genitourinary: See HPI. Physical Exam Vitals & Measurements T: 37 ?C(Temporal Artery) HR: 71(Peripheral) RR: 16 BP: 117/83 HT: 70 in HT: 178 cm WT: 107 kg WT: 235.4 lb BMI: 33.77 General Appearance: alert, no distress, well nourished, well developed male. Assessment/Plan 73 year old male diagnosed with high risk prostate cancer diagnosed 06/2023 who elected to proceed with EBRT/brachyboost with Dr. Ramos, here for ADT No hx of VT or stroke. 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 1. Prostate CA (C61: Malignant neoplasm of prostate) PSA: 01/23/18 - 1.9 11/19/21 - 4.2 & 17% 03/14/22 - 4.14 08/01/22 - 1.9 & 16% 02/16/23 - 5.17 03/29/23 - 6.2 & 16% 08/22/23 - 5.900 08/24/23 - 5.76 Fam hx of colon ca in bother, dx'd in 50s. Father passed at 88yo, believes he had prostate ca. JEFF 04/21/23 benign Prostate MRI 05/23/23 [facility] [place] - Prostate volume 35 mL. PI-RADS 5 lesion involving lateral aspect of R peripheral zone at mid gland measuring 14 x 13 mm. Appears to be capsular bulging suggestive of extracapsular extension. S/p TRUS/fusion bx 07/14/23 - GS 8 (4+4), GG4. GS 7 (4+3) and (3+4). +6/18 cores. Highest core involvement 78%. Perineural invasion present. Invasive cribriform tumor. No evidence of extraprostatic extension. Pt did meet with Dr. Cabezas to discuss RALP. Rad onc 08/16/[address] Zendejas - Decided to undergo EBRT and ADT. Rad onc 08/22/[address] Fisher - Discussed IMRT and Decipher. Recommended short-term ADT for 6 mos pending Decipher, up to 2 yrs if high risk. Start Bicalutamide from [facility] for 21 days followed by Lupron. Discussed genetics referral. Rad onc 08/23/[address] Ramos - Plan at that time pt wishes to proceed with external radiation followed by brachytherapy boost. Will have pt see urology to initiate ADT and will have him back to initiate external beam component of treatment. Will coordinate brachytherapy with urology. PSMA PET 08/16/23 - Neg for mets. Pt states Decipher was not sent. First Lupron 45mg administered today, R reginaldoe. Monitor for severe SEs. Advised pt that radiation can affect urination, and we can always discuss medication management if needed. -Cont ADT (Bicalutamide+ Lupron) x 2-3 years given high risk. -Send biopsy tissue for Decipher -Bone health exercises, Vit D/Ca -Continue radiation plan with Dr. Ramos -Pt to follow up with our office s/p radiation to assess urination [3 mos] or sooner if issues arise -Follow up in 6 months for Lupron. 2. Family history of prostate cancer in father (Z80.42: Family history of malignant neoplasm of prostate) Fam hx of colon ca in bother, dx'd in 50s. Father passed at 88yo, believes he had prostate ca. [1] 3. Glucosuria (R81: Glycosuria) UA today shows >=1000 mg/dL. Taking Jardiance. I spent 35 minutes today with the patient: reviewing tests in pr (more content not included)... Normal [facility] Comment on above: Result Comment: Elec tronically Signed By: Norris MURRAY, Ines Jo\.br\Date and Time Signed: 09/08/23 17:05 EDT\.br\Electronically Co-Signed By: Deb Lundberg\.br\Date and Time Co-Signed: 09/08/23 16:08 EDT\.br\Electronically Co-Signed By: Deb Lundberg\.br\Date and Time Co-Signed: 09/08/23 16:09 EDT\.br\Electronically Co-Signed By: Deb Lundberg\.br\Date and Time Co-Signed: 09/08/23 16:10 EDT Consultation Noteon 08-28-19 Consultation Note [id number]#1.00TIFF Normal [facility] PROSTATE-SPECIFIC ANTIGEN DI AGNOSTICon 08-24-2023 Prostate specific Ag [Mass/Vol] 5.76 ng/mL High NINF - 2.60 ng/mL [facility] Comment on above: Total PSA test metho dology used is the Electrochemiluminescence Immunoassay by [employer]. Total PSA values by differing methodologies cannot be interchanged. For an individual patient, the significance of a PSA level should be interpreted in a broad clinical context, including age, race, family history, digital rectal exam, prostate size, results of prior testing (prostate biopsy, free PSA, PCA3), and use of 5-alpha reductase inhibitors. Considering the high incidence of asymptomatic cancer in the general population that may not pose an ultimate risk to a patient, the decision to recommend urological evaluation or prostate biopsy should be individualized after consideration of all these factors. REFERENCE: Beryl Solis M.D., M.P.H., Luis Felipe Oliva M.D., Ph.D., Dennis Iraheta M.D., Cathleen Hooks, M.P.H., Sarah Prince, Sc.D. Effect of Verification Bias on Screening for Prostate Cancer by Measurement of Prostatic Specific Antigen. N Engl J Med 2003,349:335-42. PSA SerPl-mCncon 08-24-2023 Prostate specific Ag [Mass/Vol] 5.76 ng/mL High <2.60 [facility] Comment on above: Order Comment: Speci men Type: BLOOD SPECIMEN Ordering Facility: [facility] Address: [address] [place] [address] Result Comment: Tota l PSA test methodology used is the Electrochemiluminescence Immunoassay by [employer]. Total PSA values by differing methodologies cannot be interchanged. For an individual patient, the significance of a PSA level should be interpreted in a broad clinical context, including age, race, family history, digital rectal exam, prostate size, results of prior testing (prostate biopsy, free PSA, PCA3), and use of 5-alpha reductase inhibitors. Considering the high incidence of asymptomatic cancer in the general population that may not pose an ultimate risk to a patient, the decision to recommend urological evaluation or prostate biopsy should be individualized after consideration of all these factors. REFERENCE: Beryl Solis M.D., M.P.H., Lius Felipe Oliva M.D., Ph.D., Dennis Iraheta M.D., Cathleen Hooks, M.P.H., Sarah Prince Sc.D. Effect of Verification Bias on Screening for Prostate Cancer by Measurement of Prostatic Specific Antigen. N Engl J Med 2003,349:335-42. Performed By: #### 2 [id number] #### [facility] CLIA [id number] [address] [place] [address] [place] Prostate specific Ag [Mass/V ol]on 08-24-2023 Interpretation and review of laboratory results Abnormal [facility] CNOVon 08-23-2023 CNOV Office Visit (RADTSA ) -- YINA BOYER ([id number]) 1950 M Date Time Provider Department 08/23/23 10:30 AM Verónica ARMOS During your visit today, we recorded the following information about you: Temperature Pulse Respiration Blood pressure 97.4 degrees 57/minute 18/minute 140/93 Weight 106.5 kg Janette Merino RN 08/31/2023 8:30 AM Signed AUA 4 Pacemaker/Defibrillator? No Previous Cancer(s)? No Previous Radiation? No Lupus/Scleroderma? No On body monitoring device? No JARET Yip G Phillip, MD 08/31/2023 8:30 AM Signed Radiation Oncology - Prostate Cancer New Patient/Consult Note PATIENT NAME: Yina Boyer PATIENT REQUESTING PROVIDER: Dr. Capone OTHER PROVIDERS: Dr. Zendejas, Dr. Brewster DIAGNOSIS: 73 year old male with prostate adenocarcinoma, initial PSA 6.2, biopsy Darlin score 4 + 4 = 8 (grade group 4), clinical stage T2a, N0, M0, stage IIC [T1-T2, N0, M0, PSA <20, GG 4] (AJCC 8th ed.), s/p TRUS Random and MR Targeted biopsy. HPI: 73 year old male with prostate adenocarcinoma who presents for an opinion regarding the role of radiation therapy in the management of the patient's disease. Final recommendations will be communicated back to the requesting physician by way of the shared medical record, or letter to requesting physician via US mail. The patient was diagnosed with prostate cancer and comes in today to discuss treatment options. Patient presented with an elevated PSA of 5.17 on 1122, repeated 03/29/2023 value of 6.2 with 16% free. He underwent further evaluation with prostate MRI 05/23/2023 with the finding of a 35 cc gland and a focal area of hypointensity lateral right peripheral zone mid gland measuring 14 x 13 mm, capsular bulging suggestive of extracapsular extension, PI-RADS 5. Prostate biopsy with MR fusion on July 14, 2023 revealed: Adenocarcinoma, Nunda 8 (4+4) 13 cores from the right region of interest involved 8 with Darlin 8, 3 with grade group 3 and 2 with grade group 2. Evidence of perineural invasion seen. Total # of positive biopsy cores: 14 Total # of biopsy cores sampled: 25 Greatest % cancer in any single core: Greater than 50% Staging Studies: PSMA PET 08/15/2021:HEAD/NECK: * No PSMA expressing neoplastic process. CHEST: * No PSMA expressing neoplastic process. ABDOMENS/PELVIS: * PSMA avid prostate neoplasm. * No PSMA expressing neoplastic process elsewhere. MUSCULOSKELETAL: * No PSMA expressing neoplastic process. Previous Treatment for Prostate Cancer: None Genomic Testing: None The patient reports the following pertinent history: Urinary frequency (D/N): 4-6/1 Dysuria: No - Total AUA Score: 4 Bowel Movement Frequency: 1/day Bowel Movement Quality: Normal Blood per Rectum: No Last Colonoscopy: 2020 Baseline Erectile Function: 2- Diminished but usually satisfactory for intercourse Androgen Deprivation: none Prior Radiation Therapy, Collagen Vascular Disease, or Inflammatory Bowel Disease: No Any implanted or external electric devices? No Currently on Anticoagulation: No History of Hip Replacement: No History of Prior TURP: No ALLERGIES No Known Allergies rosuvastatin (CRESTOR) 40 mg tablet Take 20 mg by mouth once daily. allopurinol (ZYLOPRIM) 100 mg tablet Take 100 mg by mouth once daily. amLODIPine (NORVASC) 5 mg tablet Take 5 mg by mouth once daily. chlorthalidone (HYGROTON) 25 mg tablet Take 25 mg by mouth once daily. JARDIANCE 25 mg tablet Take 25 mg by mouth daily with breakfast. metFORMIN (GLUCOPHAGE) 1,000 mg tablet Take 1,000 mg by mouth two times a day with meals. metoprolol succinate ER (TOPROL XL) 50 mg 24 hr tablet Take 50 mg by mouth once daily. traZODone (DESYREL) 50 mg tablet Take 50 mg by mouth daily at bedtime. cyanocobalamin (VITAMIN B-12) 1,000 mcg tab Take 1,000 mcg by mouth once daily. atorvastatin (LIPITOR) 20 mg tablet Take 20 mg by mouth once daily. bicalutamide (CASODEX) 50 mg tablet Take 1 tablet by mouth once daily. bicalutamide (CASODEX) 50 mg tablet Take 1 tablet by mouth once daily. PAST MEDICAL HISTORY Diagnosis Date Prostate cancer (HCC) No past surgical history on file. No family history on file. Occupation: Retired Residence: Home REVIEW OF SYSTEMS: GENERAL: feeling well without fatigue, no recent change in weight NECK: denies swelling or pain in neck RESPIRATORY: no cough, no wheezing or shortness of breath CARDIOVASCULAR: no chest pain, no palpitations SKIN: no rash NEURO: no numbness or paresthesias and no weakness of the extremities As noted in HPI PHYSICAL EXAM: VS: BP 140/93 Pulse (!) 57 Temp 36.3 ?C (97.4 ?F) Resp 18 Wt 106.5 kg (234 lb 12.6 oz) SpO2 98% BMI 33.69 kg/m? KARNOFSKY PERFORMANCE STATUS: 100 General Appearance: Alert and oriented. No acute distress. HEENT: NCAT. (more content not included)... Normal [facility] PSA Total (Not a Screen)on 0 08-22-2023 PSA Total (Not a Screen) 5.900 ng/mL High 0.000-4.000 [facility] Comment on above: Result Comment: [place] inman tumor marker results determined by assays using different manufacturers or methods may not be comparable. [facility] business machines teacher and method: LUIS UberseqEL DXI, CHEMILUMINESCENT IMMUNOASSAY. PERFORMED BY: [place] [id number] PATHOLOGIST CLERK TELEVISION PRODUCTION TONY DAWKINS M.D. Performed By: #### P SATOTAL #### [address] Consultation Noteon 08-17-19 Consultation Note [id number] [facility] CNOVon 08-16-2023 CNOV Office Visit (RADTFV ) -- YINA BOYER ([id number]) 1950 Date Time Provider Department 08/16/23 10:00 AM DANISHA ZENDEJAS During your visit today, we recorded the following information about you: Pulse Respiration Blood pressure Weight 58/minute 18/minute 129/83 108.1 kg Danisha Zendejas MD 08/16/2023 12:58 PM Signed Radiation Oncology - Prostate Cancer New Patient/Consult Note PATIENT NAME: Yina Boyer PATIENT REQUESTING PROVIDER: Irina Cabezas MD DIAGNOSIS: 73 year old male with HR prostate cancer (iPSA 6.2, G4+4=8, cT2a [MRI suggestive of JOEL] N0) HPI: 73 year old male with prostate adenocarcinoma who presents for an opinion regarding the role of radiation therapy in the management of the patient's disease. Final recommendations will be communicated back to the requesting physician by way of the shared medical record, or letter to requesting physician via US mail. The patient was diagnosed with prostate cancer and comes in today to discuss treatment options. Clinical exam revealed a nodule. PSA history: Prostate biopsy on 4/19/24 revealed: Total # of positive biopsy cores: 6 Total # of biopsy cores sampled: 18 Greatest % cancer in any single core: Greater than 50% Staging Studies: MR Results: Previous Treatment for Prostate Cancer: None Genomic Testing: None The patient reports the following pertinent history: Urinary frequency (D/N): 6/1-2 Dysuria: No Incontinence: 1- No pads Hematuria: No - AUA Questionnaire (symptoms within the past 1 month) Incomplete Emptyin (not at all) Frequency (within 2 hours of previous void): 3 (about half the time) Intermittency: 2 (less than half the time) Urgency (difficulty postponing urination): 3 (about half the time) Weak Stream: 0 (not at all) Strainin (not at all) Nocturia: 1x per night - Total AUA Score: 9 Bowel Movement Frequency: 1-2/day Bowel Movement Quality: Normal Blood per Rectum: No Last Colonoscopy: 2020 Baseline Erectile Function: 2- Diminished but usually satisfactory for intercourse Sexual Health Inventory (MULU) score: 22/25 Androgen Deprivation: none Prior Radiation Therapy, Collagen Vascular Disease, or Inflammatory Bowel Disease: No Any implanted or external electric devices? No Currently on Anticoagulation: No History of Hip Replacement: No History of Prior TURP: No ALLERGIES Not on File allopurinol (ZYLOPRIM) 100 mg tablet Take 100 mg by mouth once daily. amLODIPine (NORVASC) 5 mg tablet Take 5 mg by mouth once daily. atorvastatin (LIPITOR) 20 mg tablet Take 20 mg by mouth once daily. chlorthalidone (HYGROTON) 25 mg tablet Take 25 mg by mouth once daily. JARDIANCE 25 mg tablet Take 25 mg by mouth daily with breakfast. metFORMIN (GLUCOPHAGE) 1,000 mg tablet Take 1,000 mg by mouth two times a day with meals. metoprolol succinate ER (TOPROL XL) 50 mg 24 hr tablet Take 50 mg by mouth once daily. traZODone (DESYREL) 50 mg tablet Take 50 mg by mouth daily at bedtime. cyanocobalamin (VITAMIN B-12) 1,000 mcg tab Take 1,000 mcg by mouth once daily. bicalutamide (CASODEX) 50 mg tablet Take 1 tablet by mouth once daily. bicalutamide (CASODEX) 50 mg tablet Take 1 tablet by mouth once daily. PAST MEDICAL HISTORY Diagnosis Date Prostate cancer (HCC) No past surgical history on file. No family history on file. Occupation: retired Residence: home with , Lenin REVIEW OF SYSTEMS: GENERAL: Negative for weight loss, fevers, chills, or night sweats. HEENT: Negative for sudden vision or hearing changes. RESPIRATORY: Negative for cough or shortness of breath. CARDIAC: Negative for chest pain GI: Negative for nausea, vomiting, diarrhea, or constipation : Negative for dysuria, hematuria, urgency, frequency or incontinence. MUSCULOSKELETAL: Negative for limitations in movement, pain, or swelling. NEURO: Negative for dizziness, headache, weakness or numbness. SKIN: Negative for rashes or other skin changes. PHYSICAL EXAM: BP 129/83 Pulse (!) 58 Resp 18 Wt 108.1 kg (238 lb 5.1 oz) SpO2 97% BMI 34.20 kg/m? KPS: 90 General: Alert and oriented. No acute distress. HEENT: NCAT. Neck: Normal ROM. Chest: No respiratory distress. Musculoskeletal: No edema or cyanosis. Neuro: Speech fluent. Gait normal. Skin: No rashes noted GENITOURINARY: Deferred exam RECTAL: Deferred exam RADIOLOGY/LABORATORY DATA: see HPI ASSESSMENT/PLAN: Prostate cancer (C61), 2019 NCCN Risk Group: High Risk Group Clinical State: Localized Cancer - New Diagnosis There are no comorbidities requiring further evaluation. The treatment options for prostate cancer including radical prostatectomy, brachytherapy, external beam radiation, and androgen deprivation therapy were reviewed with the patient. He desires to proceed with the plan outlined below. E (more content not included)... Normal [facility] PET/CT PROSTATE WBon 07-26 UT PET/CT PROSTATE WB * * *Final Report* * * DATE OF EXAM: Aug 16 2023 3:23PM [facility] 0093 - [place] PET/CT PROSTATE WB / PROCEDURE REASON: Prostate cancer (HCC) * * * * Physician Interpretation * * * * EXAMINATION: PSMA PET-CT CLINICAL HISTORY: Prostate cancer. TECHNIQUE: Radiopharmaceutical was administered IV followed about 60 minutes later by PET imaging from proximal thighs to skull vertex. Free breathing, low dose CT of the same body region was acquired without IV contrast for attenuation correction and anatomic localization. * CT Dose-Length Product (DLP): 538 mGy*cm * CT Dose Reduction Employed: Yes * Radiopharmaceutical dose: 6.8 mCi * Radiopharmaceutical: Ga-68 PSMA (Locametz) COMPARISON: No previous PSMA PET/CT available CORRELATION: No relevant imaging available RESULT: REFERENCES: SUV reference values: * Background liver activity: SUVmax 5.7 Director Of Integrated Marketing (topogram) images: No additional findings. Notes and limitations: * Standardized uptake values indicate the highest activity concentration (SUVmax) at a given location but can be variable and are not absolute. * Physiologic/non-pathologic uptake is common in salivary glands, lacrimal glands, neural ganglia, liver, spleen, GI tract, and urinary tract. Certain organ systems can have more intense activity, which could confound or obscure some pathology. * Unenhanced imaging is limited for the evaluation of some pathology and the acquired CT was not designed to produce or replace diagnostic CT quality. * PET-CT is often not sensitive for solid pulmonary nodules less than 8 mm. HEAD AND NECK: Head: No abnormal uptake. Neck and Lymph Nodes: No abnormal uptake. Thyroid: No abnormal uptake. CHEST: Lungs and Airways: No abnormal uptake. Pleura and Pericardium: No abnormal uptake. Cardiovascular: No abnormal uptake. Coronary artery calcifications. Mediastinum and Lymph Nodes: No abnormal uptake. ABDOMEN AND PELVIS: Hepatobiliary: No abnormal uptake. Spleen: No abnormal uptake. Pancreas: No abnormal uptake. Adrenals: No abnormal uptake. Urinary Tract: No abnormal uptake. GI Tract: No abnormal uptake. Peritoneum: No abnormal uptake. Vasculature: No abnormal uptake. Lymph Nodes: * Abdomen (including common iliac): No abnormal uptake. * Pelvis (below common iliac): No abnormal uptake. Prostate and Seminal Vesicles: PSMA avid right posterior peripheral zone lesion, SUV 31.7 Pelvis (other): No abnormal uptake. MUSCULOSKELETAL: Osseous: No abnormal uptake. . IMPRESSION: HEAD/NECK: * No PSMA expressing neoplastic process. CHEST: * No PSMA expressing neoplastic process. ABDOMENS/PELVIS: * PSMA avid prostate neoplasm. * No PSMA expressing neoplastic process elsewhere. MUSCULOSKELETAL: * No PSMA expressing neoplastic process. Groundhand: GLADYS Transcribe Date/Time: Aug 16 2023 10:22P Dictated by : KIM CRABTREE MD This examination was interpreted and the report reviewed and electronically signed by: KIM CRABTREE MD on Aug 16 2023 10:25PM EST [id number] Normal [facility] PET+CT Guidance for localiza tion of tumor of Whole body-- W 18F-FDG Isabel 08-16-2023 IMPRESSION: HEAD/NECK: * No PSMA expressing neoplastic process. CHEST: * No PSMA expressing neoplastic process. ABDOMENS/PELVIS: * PSMA avid prostate neoplasm. * No PSMA expressing neoplastic process elsewhere. MUSCULOSKELETAL: * No PSMA expressing neoplastic process. Groundhand: GLADYS Transcribe Date/Time: Aug 16 2023 10:22P Dictated by : KIM CRABTREE MD This examination was interpreted and the report reviewed and electronically signed by: KIM CRABTREE MD on Aug 16 2023 10:25PM [facility] [[email or web address]] DIVISION OF RADIOLOGY * * *Final Report* * * DATE OF EXAM: Aug 16 2023 3:23PM [facility] 0093 - [place] PET/CT PROSTATE WB / PROCEDURE REASON: Prostate cancer (HCC) * * * * Physician Interpretation * * * * EXAMINATION: PSMA PET-CT CLINICAL HISTORY: Prostate cancer. TECHNIQUE: Radiopharmaceutical was administered IV followed about 60 minutes later by PET imaging from proximal thighs to skull vertex. Free breathing, low dose CT of the same body region was acquired without IV contrast for attenuation correction and anatomic localization. * CT Dose-Length Product (DLP): 538 mGy*cm * CT Dose Reduction Employed: Yes * Radiopharmaceutical dose: 6.8 mCi * Radiopharmaceutical: Ga-68 PSMA (Locametz) COMPARISON: No previous PSMA PET/CT available CORRELATION: No relevant imaging available RESULT: REFERENCES: SUV reference values: * Background liver activity: SUVmax 5.7 Director Of Integrated Marketing (topogram) images: No additional findings. Notes and limitations: * Standardized uptake values indicate the highest activity concentration (SUVmax) at a given location but can be variable and are not absolute. * Physiologic/non-pathologic uptake is common in salivary glands, lacrimal glands, neural ganglia, liver, spleen, GI tract, and urinary tract. Certain organ systems can have more intense activity, which could confound or obscure some pathology. * Unenhanced imaging is limited for the evaluation of some pathology and the acquired CT was not designed to produce or replace diagnostic CT quality. * PET-CT is often not sensitive for solid pulmonary nodules less than 8 mm. HEAD AND NECK: Head: No abnormal uptake. Neck & Lymph Nodes: No abnormal uptake. Thyroid: No abnormal uptake. CHEST: Lungs & Airways: No abnormal uptake. Pleura & Pericardium: No abnormal uptake. Cardiovascular: No abnormal uptake. Coronary artery calcifications. Mediastinum & Lymph Nodes: No abnormal uptake. ABDOMEN AND PELVIS: Hepatobiliary: No abnormal uptake. Spleen: No abnormal uptake. Pancreas: No abnormal uptake. Adrenals: No abnormal uptake. Urinary Tract: No abnormal uptake. GI Tract: No abnormal uptake. Peritoneum: No abnormal uptake. Vasculature: No abnormal uptake. Lymph Nodes: * Abdomen (including common iliac): No abnormal uptake. * Pelvis (below common iliac): No abnormal uptake. Prostate & Seminal Vesicles: PSMA avid right posterior peripheral zone lesion, SUV 31.7 Pelvis (other): No abnormal uptake. MUSCULOSKELETAL: Osseous: No abnormal uptake. . DIVISION OF RADIOLOGY Provider, [facility] - 08/16/2023 * * *Final Report* * * DATE OF EXAM: Aug 16 2023 3:23PM [facility] 0093 - [place] PET/CT PROSTATE WB / PROCEDURE REASON: Prostate cancer (HCC) * * * * Physician Interpretation * * * * EXAMINATION: PSMA PET-CT CLINICAL HISTORY: Prostate cancer. TECHNIQUE: Radiopharmaceutical was administered IV followed about 60 minutes later by PET imaging from proximal thighs to skull vertex. Free breathing, low dose CT of the same body region was acquired without IV contrast for attenuation correction and anatomic localization. * CT Dose-Length Product (DLP): 538 mGy*cm * CT Dose Reduction Employed: Yes * Radiopharmaceutical dose: 6.8 mCi * Radiopharmaceutical: Ga-68 PSMA (Locametz) COMPARISON: No previous PSMA PET/CT available CORRELATION: No relevant imaging available RESULT: REFERENCES: SUV reference values: * Background liver activity: SUVmax 5.7 Director Of Integrated Marketing (topogram) images: No additional findings. Notes and limitations: * Standardized uptake values indicate the highest activity concentration (SUVmax) at a given location but can be variable and are not absolute. * Physiologic/non-pathologic uptake is common in salivary glands, lacrimal glands, neural ganglia, liver, spleen, GI tract, and urinary tract. Certain organ systems can have more intense activity, which could confound or obscure some pathology. * Unenhanced imaging is limited for the evaluation of some pathology and the acquired CT was not designed to produce or replace diagnostic CT quality. * PET-CT is often not sensitive for solid pulmonary nodules less than 8 mm. HEAD AND NECK: Head: No abnormal uptake. Neck & Lymph Nodes: No abnormal uptake. Thyroid: No abnormal uptake. CHEST: Lungs & Airways: No abnormal uptake. Pleura & Pericardium: No abnormal uptake. Cardiovascular: No abnormal uptake. Coronary artery calcifications. Mediastinum & Lymph Nodes: No abnormal uptake. ABDOMEN AND PELVIS: Hepatobiliary: No abnormal uptake. Spleen: No abnormal uptake. Pancreas: No abnormal uptake. Adrenals: No abnormal uptake. Urinary Tract: No abnormal uptake. GI Tract: No abnormal uptake. Peritoneum: No abnormal uptake. Vasculature: No abnormal uptake. Lymph Nodes: * Abdomen (including common iliac): No abnormal uptake. * Pelvis (below common iliac): No abnormal uptake. Prostate & Seminal Vesicles: PSMA avid right posterior peripheral zone lesion, SUV 31.7 Pelvis (other): No abnormal uptake. MUSCULOSKELETAL: Osseous: No abnormal uptake. . IMPRESSION IMPRESSION: HEAD/NECK: * No PSMA expressing neoplastic process. CHEST: * No PSMA expressing neoplastic process. ABDOMENS/PELVIS: * PSMA avid prostate neoplasm. * No PSMA expressing neoplastic process elsewhere. MUSCULOSKELETAL: * No PSMA expressing neoplastic process. Groundhand: GLADYS Transcribe Date/Time: Aug 16 2023 10:22P Dictated by : KIM CRABTREE MD This examination was interpreted and the report reviewed and electronically signed by: KIM CRABTREE MD on Aug 16 2023 10:25PM EST [facility] Radiology Study observation (narrative) [facility] PET+CT Guidance for localiza tion of tumor of Whole body-- W 18F-FDG IVOrdered By: [facility]cf Provider on 08-16-2023 [facility] CNPSushma 08-14-2023 CNPN Telephone (URON) -- YINA BOYER ([id number]) 1950 M Date Time Provider Department 08/14/23 ALEXA HDZ During your visit today, we recorded the following information about you: Alexa Hdz APRN.CNP 08/14/2023 10:25 AM Signed This form is used for MAIN CAMPUS APPOINTMENTS ONLY. Is this request for a Main [place] PET scan appointment? Yes: Sports Recruiter: Alexa Hdz APRN.COMMUNICATIONS MAINTAINER Requesting Person (Last Name, First Name): Irina Cabezas Area Code + Phone/Pager: [phone] Who do we call to schedule this appointment? Patient Requesting Staff Dr. Irina Cabezas Area Code + Phone/Pager: [phone] PET Orders (A delay in scheduling will result if the orders are not present at time of review): Internal ADDITIONAL ACTION MAY BE REQUIRED IF PATIENTS OON INSURANCE OR SELF PAY COVERAGE HAS NOT BEEN CLEARED FOR REQUESTED APPOINTMENT. Scheduling: LYUBOV: As soon as insurance will allow What account will this PET appointment be linked to? N/A Type of PET: Oncology: Are there additional diagnostic CT scans required to be done at time of PET scan? No Is the request for a PET MR ? No What account will diagnostic testing appointment be linked to? N/A Will the patient need anesthesia? 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, totally aggregang to 50 mm, and 80% of all examined cores ?Darlin score are 4+4, 443, and 374 in various cores ??The tumor ofthe Darlin score 4 Labs: na Clinical Notes Reviewed: 08/11/23 Date of last: na Additional Information: N/A Radiologist Reviewed: N/A Initial/Subsequent: Initial Treatment Strategy: 0093 PET Protocol: PSMA Diagnostic Imaging Requested: No Is this a Pretreatment and/or an initial Pet scan: No - Schedule as requested Comments for Culinary Director: N/A ROUTE TO SCHEDULERS POOL P PET GLUCOSE AND SYRUP WEIGHER or P UT SPECIAL STUDIES Fatoumata Gonzalez 08/15/2023 1:20 PM Signed SCHEDULED 08/15 Allergies As of Date: 08/14/2023 (Not on File) Date Reviewed: 08/11/2023 Reviewed by: Carlene Gunderson OCCA - Fully Assessed Reason for Visit: Nm Pet Request [[id number]] Prescriptions as of 08/15/2023 - allopurinol (ZYLOPRIM) 100 mg tablet Take 100 mg by mouth once daily. - amLODIPine (NORVASC) 5 mg tablet Take 5 mg by mouth once daily. - atorvastatin (LIPITOR) 20 mg tablet Take 20 mg by mouth once daily. - chlorthalidone (HYGROTON) 25 mg tablet Take 25 mg by mouth once daily. - JARDIANCE 25 mg tablet Take 25 mg by mouth daily with breakfast. - metFORMIN (GLUCOPHAGE) 1,000 mg tablet Take 1,000 mg by mouth two times a day with meals. - metoprolol succinate ER (TOPROL XL) 50 mg 24 hr tablet Take 50 mg by mouth once daily. - traZODone (DESYREL) 50 mg tablet Take 50 mg by mouth daily at bedtime. - cyanocobalamin (VITAMIN B-12) 1,000 mcg tab Take 1,000 mcg by mouth once daily. - bicalutamide (CASODEX) 50 mg tablet Take 1 tablet by mouth once daily. - bicalutamide (CASODEX) 50 mg tablet Take 1 tablet by mouth once daily. Problem List As Of Date: 08/14/2023 (None) Encounter Status:Closed by ALEXA HDZ on 08/14/23 [facility] CNOVmaría 08-11-2023 CNOV Office Visit (UROLMN ) -- YINA BOYER ([id number]) 1950 M Date Time Provider Department 08/11/23 1:45 PM IRINA CABEZAS During your visit today, we recorded the following information about you: Weight Height 108.2 kg 1.778 m Irina Cabezas MD 10/01/2023 11:49 AM Signed Referring Provider: Chief Complaint: Prostate Cancer HPI Yina Boyer is a 73 year old male with PMH of HLD, HTN, obesity, DM, elevated PSA prompting MRI with PR5 left peripheral zone lesion with EPE, with subsequent biopsy demonstrating Darlin 8 in MEG. The Pt mentions he is still able to get and maintain erections. Last PSA 5.2 Prostate volume 35cc. MRI Prostate 08/01/23 Prostate Biopsy Pathological Diagnosis A, positive biopsy, left base lateral: -Benign prostate tissue B. prostate biopsy, left base medial: -Benign positive tissue with focal mild atrophie change and mild surrounding nodular glandular hyperplasia C. positive biopsy, left mid lateral: -Benign prostate tissue with patchy foci of nodular glandular hyperplasia and benign adenomatous hyperplasia. and 1 small focus of low-grade PIN D. 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 Voiding ok. MULU -20 Family History of Genitourinary Cancer: Yes, prostate cancer in father REVIEW OF SYSTEMS GENERAL:No weight loss, malaise or fevers., SEE HPI HEENT:Negative for frequent or significant headaches, No changes in hearing or vision, no nose bleeds or other nasal problems RESPIRATORY: Negative for cough, wheezing or shortness of breath. CARDIOVASCULAR: Negative for chest pain, leg swelling or palpitations. GASTROINTESTINAL: Negative for abdominal discomfort, blood in stools or black stools or change in bowel habits GENITOURINARY: No history of dysuria, frequency or incontinence FAMILY RESOURCE COORDINATOR: Negative for abnormal vaginal bleeding, abnormal vaginal discharge MUSCULOSKELETAL: Negative for joint pain or swelling, back pain or muscle pain. NEUROLOGIC:Negative for focal numbness or weakness, headaches and dizziness or syncope. HEMATOLOGIC/LYMPHATIC/IMMU NOLOGIC:Negative for prolonged bleeding, bruising easily or swollen nodes. ENDOCRINE: Negative for cold or heat intolerance, polyuria, polydipsia and goiter. The remainder of the ROS was negative. HISTORIES No past medical history on file. No family history on file. SOCIAL HISTORY PHYSICAL EXAMINATION General appearance: Well appearing, alert, in no acute distress, and well-hydrated, well nourished Back: no pain to palpation over spine or costovertebral angles, reflexes are 2+ and symmetric, motor and sensory appear to be normal Lungs: Clear to auscultation no wheezing or rhonchi Heart: RRR without murmur, gallop, or rubs. No ectopy Abdomen: Normal abdominal exam, Abdomen soft, non-tender. Bowel sounds normal. No masses, organomegaly Extremities: Extremities normal. No deformities, edema, or skin discoloration. Good capillary refill. Musculoskeletal: Spine range of motion normal. Muscular strength intact, No joint swelling, deformity, or tenderness LABS Reviewed See above pathology IMAGING MRI Prostate 08/01/23 Noman Britton MD Assessment ASSESSMENT/PLAN: 1. Prostate cancer (HCC) - ICD9: 185, ICD10: C61 -GG4 in right PZ with suspected EPE -Will need PSMA PET for metastatic work up prior to proceeding with surgery and as close to home as possible - If we do go with the radical prostatectomy, we will do left sided nerve sparing - If he chooses surgery, robotic prostatectomy with pre-ops including PACC, pre-op teaching, labs, and EKG as close to home as possible -Risks Benefits Radical Prostatectomy The natural history of this disease was explained to the patient at length and the treatment options discussed including radical prostatectomy by open or robotic-assisted lapa (more content not included)... Normal [facility] URINALYSIS, REFLEX MICROSCOP ICOrdered By: Keisha Hoang on 08-11-2023 Bilirubin Ql (U) Negative Negative [facility] Clarity (Unsp spec) Clear Clear [facility] Color (U) Light Yellow Yellow [facility] Glucose Test strip (U) [Mass/Vol] 4+ Abnormal Trace, Negative [facility] Comment on above: Result rechecked. Hemoglobin Ql (U) Negative Negative, Trace [facility] Interpretation and review of laboratory results Abnormal [facility] Ketones Ql (U) Trace Negative, Trace [facility] Leukocyte esterase Test strip Ql (U) Negative Negative, 25 Jose Antonio/uL [facility] Nitrite Ql (U) Negative Negative [facility] pH (U) 7.0 [pH] 5.0 - 8.0 [facility] Protein (U) [Mass/Vol] Negative Trace , Negative [facility] Specific gravity (U) [Rel density] 1.029 1.005 - 1.030 [facility] Urobilinogen Ql (U) Normal Normal [facility] URINALYSIS, REFLEX MICROSCOP ICon 08-11-2023 Bilirubin Ql (U) Negative Normal Negative [facility] Comment on above: Order Comment: Speci men Type: URINE SPECIMEN Ordering Facility: [facility] Address: [address] [place] [address] Performed By: #### L [id number] #### [facility] CLIA [id number] [address] [place] [address] [place] Clarity (Unsp spec) Clear Normal Clear [facility] Comment on above: Order Comment: Speci men Type: URINE SPECIMEN Ordering Facility: [facility] Address: [address] [place] [address] Performed By: #### L [id number] #### [facility] CLIA [id number] [address] [place] [address] [place] Color (U) Light Yellow Normal Yellow [facility] Comment on above: Order Comment: Speci men Type: URINE SPECIMEN Ordering Facility: [facility] Address: [address] [place] [address] Performed By: #### L [id number] #### [facility] CLIA [id number] [address] [place] [address] [place] Glucose Test strip (U) [Mass/Vol] 4+ Abnormal Trace, Negative [facility] Comment on above: Order Comment: Speci men Type: URINE SPECIMEN Ordering Facility: [facility] Address: [address] [place] [address] Result Comment: Resu lt rechecked. Performed By: #### L [id number] #### [facility] CLIA [id number] [address] [place] [address] [place] Hemoglobin Ql (U) Negative Normal Negative, Trace [facility] Comment on above: Order Comment: Speci men Type: URINE SPECIMEN Ordering Facility: [facility] Address: [address] [place] [address] Performed By: #### L [id number] #### [facility] CLIA [id number] [address] [place] [address] [place] Ketones Ql (U) Trace Normal Negative, Trace [facility] Comment on above: Order Comment: Speci men Type: URINE SPECIMEN Ordering Facility: [facility] Address: [address] [place] [address] Performed By: #### L [id number] #### [facility] CLIA [id number] [address] [place] [address] [place] Leukocyte esterase Test strip Ql (U) Negative Normal Negative, 25 Jose Antonio/uL [facility] Comment on above: Order Comment: Speci men Type: URINE SPECIMEN Ordering Facility: [facility] Address: [address] [place] [address] Performed By: #### L [id number] #### [facility] CLIA [id number] [address] [place] [address] [place] Nitrite Ql (U) Negative Normal Negative [facility] Comment on above: Order Comment: Speci men Type: URINE SPECIMEN Ordering Facility: [facility] Address: [address] [place] [address] Performed By: #### L [id number] #### [facility] CLIA [id number] [address] [place] [address] [place] pH (U) 7.0 [pH] Normal 5.0-8.0 [facility] Comment on above: Order Comment: Speci men Type: URINE SPECIMEN Ordering Facility: [facility] Address: [address] [place] [address] Performed By: #### L [id number] #### [facility] CLIA [id number] [address] [place] [address] [place] Protein (U) [Mass/Vol] Negative Normal Trace , Negative [facility] Comment on above: Order Comment: Speci men Type: URINE SPECIMEN Ordering Facility: [facility] Address: [address] [place] [address] Performed By: #### L [id number] #### [facility] CLIA [id number] [address] [place] [address] [place] Specific gravity (U) [Rel density] 1.029 Normal 1.005-1.030 [facility] Comment on above: Order Comment: Speci men Type: URINE SPECIMEN Ordering Facility: [facility] Address: [address] [place] [address] Performed By: #### L [id number] #### [facility] CLIA [id number] [address] [place] [address] [place] Urobilinogen Ql (U) Normal Normal Normal [facility] Comment on above: Order Comment: Speci men Type: URINE SPECIMEN Ordering Facility: [facility] Address: [address] [place] [address] Performed By: #### L [id number] #### [facility] CLIA [id number] [address] [place] [address] [place] Pathology Noteon 2023 Pathology Note [id number] [facility] Ambulatory Visit Summaryon 0 07-27-2023 Ambulatory Visit Summary YINA BOYER :1950 Visit Date:07/27/2023 Ambulatory Visit Instructions Your Diagnosis Prostate CA Family history of prostate cancer in father Diabetes mellitus, type II Your Care Team Attending Physician - Josi CAPONE MD Primary Care Physician - SRIRAM BREWSTER DO This Is Your Medications List Contact prescribing physician if questions or concerns allopurinol (allopurinol 100 mg Tab) amlodipine (amLODIPine 5 mg Tab) atorvastatin (atorvastatin 20 mg Tab) chlorthalidone (chlorthalidone 25 mg Tab) empagliflozin (Jardiance) metformin-repaglinide (metformin-repaglinide 500 mg-2 mg oral tablet) metoprolol (Metoprolol tartrate 50 mg Tab) omega-3 polyunsaturated fatty acids (Fish Oil) trazodone (traZODONE 50 mg Tab) Procedures Performed Colonoscopy. Discharge Vitals Temperature (Temporal Artery) 37 ?C Heart Rate (Peripheral) 72 Respiratory Rate 16 Blood Pressure 127/81 Height 178 cm Height 70 in Weight 107 kg Weight 235.4 lb BMI 33.77 What to do next You Need to Schedule the Following Appointments Follow Up with Josi CAPONE MD, WILFRIDO When: Comments: referral to discuss prostate ca treatment options Where: [address] [place] [phone] Someone Will Contact You Regarding These Appointments [facility] External Ambulatory Referral, Service not offered at [facility], Other Referral, Rad onc to discuss prostate cancer treatment options, 07/27/23 13:10:00 EDT, Prostate CA [facility] External Ambulatory Referral, Service not offered at [facility], Other Referral, Referral to [facility] to discuss RALP, 07/27/23 13:13:00 EDT, Prostate CA Medications What How Much When Instructions Unchanged allopurinol (allopurinol 100 mg Tab) By Mouth Contact prescribing physician if questions or concerns Unchanged amlodipine (amLODIPine 5 mg Tab) By Mouth Every day Contact prescribing physician if questions or concerns Unchanged atorvastatin (atorvastatin 20 mg Tab) By Mouth Every day Contact prescribing physician if questions or concerns Unchanged chlorthalidone (chlorthalidone 25 mg Tab) By Mouth Every day Contact prescribing physician if questions or concerns Unchanged empagliflozin (Jardiance) By Mouth Once a day (in the morning) Contact prescribing physician if questions or concerns Unchanged metformin-repaglinide (metformin-repaglinide 500 mg-2 mg oral tablet) 1 Tablets By Mouth 2 times a day within 30 minutes to immediately before a meal; skip dose if meal skipped Contact prescribing physician if questions or concerns Unchanged metoprolol (Metoprolol tartrate 50 mg Tab) By Mouth 2 times a day Contact prescribing physician if questions or concerns Unchanged omega-3 polyunsaturated fatty acids (Fish Oil) By Mouth Contact prescribing physician if questions or concerns Unchanged trazodone (traZODONE 50 mg Tab) By Mouth Contact prescribing physician if questions or concerns Allergies No Known Medication Allergies Problems Ongoing - Any problem that you are currently receiving treatment for. Benign prostatic hyperplasia (BPH) with urinary urgency COPD type A Diabetes mellitus, type II Elevated PSA Family history of prostate cancer in father Prostate CA Patient Survey You may receive a survey via text or e-mail asking about your office visit. Please share your experience with us by completing your survey. We appreciate your feedback and thank you for choosing us for your care. Education Materials Prostate Cancer The prostate is a small gland that produces fluid that makes up semen (seminal fluid). It is located below the bladder in men, in front of the rectum. Prostate cancer is the abnormal growth of cells in the prostate gland. What are the causes? The exact cause of this condition is not known. What increases the risk? You are more likely to develop this condition if: ? You are 65 years of age or older. ? You have a family history of prostate cancer. ? You have a family history of breast and ovarian cancer. ? You have genes that are passed from parent to child (inherited), such as BRCA1 and BRCA2. ? You have Lancaster syndrome. men and men of descent are diagnosed with prostate cancer at higher rates than other men. The reasons for this are not well understood and are likely due to a combination of genetic and environmental factors. What are the signs or symptoms? Symptoms of this condition include: ? Problems with urination. This may include: ? A weak or interrupted flow of urine. ? Trouble starting or stopping urination. ? Trouble emptying the bladder all the way. ? The need to urinate more often, especially at night. ? Blood in urine or semen. ? Persistent pain or discomfort in the lower back, lower abdomen, or hips. ? Trouble getting an erection. ? Weakness or numbness in the legs or feet. How is (more content not included)... Normal [facility] Patient Educationon 07-27-19 Patient Education Oncology Prostate Cancer The prostate is a small gland that produces fluid that makes up semen (seminal fluid). It is located below the bladder in men, in front of the rectum. Prostate cancer is the abnormal growth of cells in the prostate gland. What are the causes? The exact cause of this condition is not known. What increases the risk? You are more likely to develop this condition if: ? You are 65 years of age or older. ? You have a family history of prostate cancer. ? You have a family history of breast and ovarian cancer. ? You have genes that are passed from parent to child (inherited), such as BRCA1 and BRCA2. ? You have Lancaster syndrome. men and men of descent are diagnosed with prostate cancer at higher rates than other men. The reasons for this are not well understood and are likely due to a combination of genetic and environmental factors. What are the signs or symptoms? Symptoms of this condition include: ? Problems with urination. This may include: ? A weak or interrupted flow of urine. ? Trouble starting or stopping urination. ? Trouble emptying the bladder all the way. ? The need to urinate more often, especially at night. ? Blood in urine or semen. ? Persistent pain or discomfort in the lower back, lower abdomen, or hips. ? Trouble getting an erection. ? Weakness or numbness in the legs or feet. How is this diagnosed? This condition can be diagnosed with: ? A digital rectal exam. For this exam, a health care provider inserts a gloved finger into the rectum to feel the prostate gland. ? A blood test called a prostate-specific antigen (PSA) test. ? A procedure in which a sample of tissue is taken from the prostate and checked under a microscope (prostate biopsy). ? An imaging test called transrectal ultrasonography. Once the condition is diagnosed, tests will be done to determine how far the cancer has spread. This is called staging the cancer. Staging may involve imaging tests, such as a bone scan, CT scan, PET scan, or MRI. Stages of prostate cancer The stages of prostate cancer are as follows: ? Stage 1 (I). At this stage, the cancer is found in the prostate only. The cancer is not visible on imaging tests, and it is usually found by accident, such as during prostate surgery. ? Stage 2 (II). At this stage, the cancer is more advanced than it is in stage 1, but the cancer has not spread outside the prostate. ? Stage 3 (III). At this stage, the cancer has spread beyond the outer layer of the prostate to nearby tissues. The cancer may be found in the seminal vesicles, which are near the bladder and the prostate. ? Stage 4 (IV). At this stage, the cancer has spread to other parts of the body, such as the lymph nodes, bones, bladder, rectum, liver, or lungs. Prostate cancer grading Prostate cancer is also graded according to how the cancer cells look under a microscope. This is called the Nunda score and the total score can range from 6?10, indicating how likely it is that the cancer will spread (metastasize) to other parts of the body. The higher the score, the greater the likelihood that the cancer will spread. ? Darlin 6 or lower: This indicates that the cancer cells look similar to normal prostate cells (well differentiated). ? Nunda 7: This indicates that the cancer cells look somewhat similar to normal prostate cells (moderately differentiated). ? Nunda 8, 9, or 10: This indicates that the cancer cells look very different than normal prostate cells (poorly differentiated). How is this treated? Treatment for this condition depends on several factors, including the stage of the cancer, your age, personal preferences, and your overall health. Talk with your health care provider about treatment options that are recommended for you. Common treatments include: ? Observation for early stage prostate cancer (active surveillance). This involves having exams, blood tests, and in some cases, more biopsies. For some men, this is the only treatment needed. ? Surgery. Types of surgeries include: ? Open surgery (radical prostatectomy). In this surgery, a larger incision is made to remove the prostate. ? A laparoscopic radical prostatectomy. This is a surgery to remove the prostate and lymph nodes through several small incisions. It is often referred to as a minimally invasive surgery. ? A robotic radical prostatectomy. This is laparoscopic surgery to remove the prostate and lymph nodes with the help of robotic arms that are controlled by the surgeon. ? Cryoablation. This is surgery to freeze and destroy cancer cells. ? Radiation treatment. Types of radiation treatment include: ? External beam radiation. This type aims beams of radiation from outside the body at the prostate to destroy cancerous cells. ? Brachytherapy. This type uses radioactive needles, seeds, wires, or tubes that are implanted into the prostate gland. Like external be (more content not included)... Normal [facility] Urology Office/Clinic Noteon 07-27-2023 Urology Office/Clinic Note Chief Complaint Pt is here for PO MRI fusion biopsy HPI Staff S/p to prostate MRI @[facility] on 07/14/23 Previous DX; Elevated PSA, Family hx of prostate cancer(father) PSA- Current 02/16/23- 5.17 Previous PSA- 08/01/22- 1.9& 16% Dysuria: denies Incomplete bladder emptying: denies Hematuria: denies Frequency: 6x a day Urgency: denies Nocturia: 1x a night Stream: steady stream Leaking: denies Post void dripping: denies Wearing pads/ Depends: denies Urge incontinence: denies Stress incontinence: denies Incontinence without Sensory Awareness: denies Abdominal pain: denies Flank pain: denies Sexual complaints: _ History of Present Illness Tests reviewed: reviewed path report I have reviewed the previous health record information and history for this patient from Dr. Capone. I have reviewed and verified the staff HPI to be accurate for this encounter. Review of Systems PHQ Score Initial Depression Screen Score: 0 SCORE ROS - Provider Constitutional: denies weight loss, denies hot flashes. Eyes: denies eye problems. Gastrointestinal: denies nausea, denies vomiting. Cardiovascular: denies chest pain or angina. Integumentary: no dryness Musculoskeletal: denies musculoskeletal symptoms. ENMT: denies otolaryngeal symptoms. Respiratory: no shortness of breath. Heme/Lymph: denies easy bleeding tendency, denies easy bruising tendency. Psychiatric: no confusion, no anxiety. Genitourinary: See HPI. Physical Exam Vitals & Measurements T: 37 ?C(Temporal Artery) HR: 72(Peripheral) RR: 16 BP: 127/81 HT: 70 in HT: 178 cm WT: 107 kg WT: 235.4 lb BMI: 33.77 General Appearance: alert, no distress, well nourished, well developed male. Assessment/Plan Dr. Pisano pt No hx of VT or stroke. 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 1. Prostate CA (C61: Malignant neoplasm of prostate) PSA 01/23/18 - 1.9 11/19/21 - 4.2 & 17% 03/14/22 - 4.14 08/01/22 - 1.9 & 16% 02/16/23 - 5.17 03/29/23 - 6.2 & 16% Fam hx of colon ca in bother, dx'd in 50s. Father passed at 88yo, believes he had prostate ca. JEFF 04/21/23: benign Prostate MRI 05/23/23 [facility] - Prostate volume 35 mL. PI-RADS 5 lesion involving lateral aspect of R peripheral zone at mid gland measuring 14 x 13 mm. Appears to be capsular bulging suggestive of extracapsular extension. S/p TRUS/fusion bx 07/14/23 - GS 8 (4+4), GG4. GS 7 (4+3) and (3+4). +6/18 cores. Highest core involvement 78%. Perineural invasion present. Invasive cribriform tumor. No evidence of extraprostatic extension. The pathology report, which shows the presence of prostate cancer, was disclosed to the patient in detail today. Explained that he has high grade cancer and will require treatment. Discussed staging studies but pt has had MRI which did not show involvement in lymph nodes. I discussed with the patient all the treatment options, including RALP, brachytherapy, EBRT, SBRT, ADT, combination of therapy options. I went over the pros and cons of each therapy today, and the [employer] prostate cancer book was provided. Explained possible SEs of radiation. Also discussed referral to radiation oncology and to surgery at tertiary care. Pt is willing to proceed. -Referral to Dr. Fisher, rad onc -Referral to Dr. Cabezas at [facility], urologic surgical pathologist 2. Family history of prostate cancer in father (Z80.42: Family history of malignant neoplasm of prostate) Fam hx of colon ca in bother, dx'd in 50s. Father passed at 88yo, believes he had prostate ca. [1] 3. Diabetes mellitus, type II (E11.9: Type 2 diabetes mellitus without complications) Has had increased urgency since starting Jardiance. Previously discussed DM contribution to urinary sxs. Declined medical treatment. -Cont timed voids Discussed extensively with the patient as noted above. 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 This does not seem to be multifocal on the prostate. We discussed the pros and cons of both surgical intervention and forms of radiation therapy and he agrees with my strong recommendation to get opinions from both. Multiple questions answered and diagrams provided to the patient and his today. Portions of this record may have been created with voice recognition artificial intelligence software, specifically [employer], [employer] and or [employer]. Substitutions may have occurred due to the inherent limitations of voice recognition and artificial intelligence software. Follow-up With When Contact Information Josi CAPONE MD, URL [address] [place] [id number]- Additional Instructions: referral to discuss prostate ca treatment options Patient Education Prostate Cancer I, Jigna Frederick, personally scribed for Dr. Capone on 07/27/2023 13:22:44. . Documentation recorded by the scribe, (more content not included)... Normal [facility] Comment on above: Result Comment: Elec tronically Signed By: Josi CAPONE MD\.br\Date and Time Signed: 07/27/23 16:00 EDT\.br\Electronically Co-Signed By: Jigna Frederick\.br\Date and Time Co-Signed: 07/27/23 13:23 EDT Pathology Noteon 07-20-2023 Pathology Note [id number] [facility] Operative Reporton Operative Report [id number]#[id number] [facility] Capillary blood glucose lisa urement by glucometer (mass/volume)Ordered By: Josi Capone on 07-14-2023 Glucose [Mass/Vol] 139 mg/dL Normal [facility] Comment on above: Random Glucose Refer ence Range is dependent on time and content of last meal. Glucose of more than 200 mg/dL in a nonstressed, ambulatory subject supports the diagnosis of Diabetes Mellitus. Result Comment: [facility] Glucose Reference Range is dependent on time and content of last meal. Glucose of more than 200 mg/dL in a nonstressed, ambulatory subject supports the diagnosis of Diabetes Mellitus. PERFORMED BY: [facility] [place] [address] PATHOLOGIST CLERK [employer] TONY DAWKINS M.D. Performed By: #### G LULS #### Point of Care testing , Be 07-14-2023 L Specimen: Received: 07/14/23 Status: DOUGLAS Req Num: [id number] Spec Type: Surgical Subm Dr: Josi Capone MD Tissues: A Prostate - Needle Biopsy (LT BASE LATERAL) B Prostate - Needle Biopsy (LT BASE MEDIAL) C Prostate - Needle Biopsy (LT MID LATERAL) D Prostate - Needle Biopsy (LT MID MEDIAL) E Prostate - Needle Biopsy (LT APEX LATERAL) F Prostate - Needle Biopsy (LT APEX MEDIAL) G Prostate - Needle Biopsy (RT BASE LATERAL MEG) H Prostate - Needle Biopsy (RT BASE MEDIAL) I Prostate - Needle Biopsy (RT MID LATERAL) J Prostate - Needle Biopsy (RT APEX LATERAL) K Prostate - Needle Biopsy (RT MID MEDIAL) L Prostate - Needle Biopsy (RT APEX MEDIAL) Procedures: HE/26, Gross/Micro L4/12, PIN Cocktail/6, IHC Multipl/6 Age/ Patient Sex Location Account Attending Physician Yina Boyer 72/M [place] [id number] Josi Capone MD SPEC NUM: [id number] RECD: 07/14/23 STATUS: DOUGLAS RE NUM: [id number] MARISOL: 07/14/23- SUBM DR: Josi Capone MD ENTERED: 07/14/[address] [facility] [address]: SPEC TYPE: Surgical DEPT: S ENTERED BY: [id number] RECV BY: [id number] ORDERED: HE/26, Gross/Micro L4/12, PIN Cocktail/6, IHC Multipl/6 ORDERED: HE/26, Gross/Micro L4/12, PIN Cocktail/6, USS/20, IHC Multipl/6 Supplemental Report Addendum 1 Entered: 10/03/23 Supplemental for findings of Biopsy Genomic Strip Picker from [employer] Prostate: -[place]ia GENOMIC SCORE: 0.84 -Decipher genomic risk group is: High Risk -Predicted risk of metastasis with standard therapy at 10-year is: 18.6% Specimen: [id number] Received: 07/14/23 Status: DOUGLAS Rojas Num: [id number] Spec Type: Surgical Subm Dr: Josi Capone MD Tissues: A Prostate - Needle Biopsy (LT BASE LATERAL) B Prostate - Needle Biopsy (LT BASE MEDIAL) C Prostate - Needle Biopsy (LT MID LATERAL) D Prostate - Needle Biopsy (LT MID MEDIAL) E Prostate - Needle Biopsy (LT APEX LATERAL) F Prostate - Needle Biopsy (LT APEX MEDIAL) G Prostate - Needle Biopsy (RT BASE LATERAL MEG) H Prostate - Needle Biopsy (RT BASE MEDIAL) I Prostate - Needle Biopsy (RT MID LATERAL) J Prostate - Needle Biopsy (RT APEX LATERAL) K Prostate - Needle Biopsy (RT MID MEDIAL) L Prostate - Needle Biopsy (RT APEX MEDIAL) Procedures: /26, Gross/Micro L4/12, PIN Cocktail/6, IHC Multipl/6 Patient: Yina Boyer [id number] (Continued) Specimen: [id number] Received: 07/14/23 (Continued) Supplemental Report (Continued) Signed (signature on file) Trevon Kim MD 07/18/232017 Specimen: [id number] Received: 07/14/23 Status: DOUGLAS Rojas Num: [id number] Spec Type: Surgical Subm Dr: Josi Capone MD Tissues: A Prostate - Needle Biopsy (LT BASE LATERAL) B Prostate - Needle Biopsy (LT BASE MEDIAL) C Prostate - Needle Biopsy (LT MID LATERAL) D Prostate - Needle Biopsy (LT MID MEDIAL) E Prostate - Needle Biopsy (LT APEX LATERAL) F Prostate - Needle Biopsy (LT APEX MEDIAL) G Prostate - Needle Biopsy (RT BASE LATERAL MEG) H Prostate - Needle Biopsy (RT BASE MEDIAL) I Prostate - Needle Biopsy (RT MID LATERAL) J Prostate - Needle Biopsy (RT APEX LATERAL) K Prostate - Needle Biopsy (RT MID MEDIAL) L Prostate - Needle Biopsy (RT APEX MEDIAL) Procedures: HE/26, Gross/Micro L4/12, PIN Cocktail/6, IHC Multipl/6 Patient: MarianelaBooker lynchYina [id number] (Continued) Specimen: [id number] Received: 07/14/23-1611 (Continued) Supplemental Report (Continued) Addendum Signed (signature on file) Trevon Kim MD 10/03/23 0932 Pathological Diagnosis A, positive biopsy, left base lateral: -Benign prostate tissue B, prostate biopsy, left base medial: -Benign positive tissue with focal mild atrophic change and mild surrounding nodular gl andular hyperplasia C, positive biopsy, left mid lateral: -Benign prostate tissue with patchy foci of nodular glandular hyperplasia and benign adenomatous hyperplasia, and 1 small focus of low-grade PIN D, prostate biopsy, left mid medial: -Benign prostate tissue with foci of nodular glandular hyperplasia E, positive biopsy, left apex lateral : -Benign prostate tissue with diffuse nodular glandular hyperplasia including feature of benign adenomatous hyperplasia F, prostate biopsy, left apex m (more content not included)... Normal [facility] Lab Reportson 07-03-2023 Lab Reports .[id number] Normal [facility] Lab Reports [id number] Normal [facility] Activated partial thrombopla stin time (aPTT) in platelet poor plasma by coagulation aOrdered By: Josi Capone on 06-30-2023 aPTT Coag (PPP) [Time] 30.8 s 25.1-36.5 [facility] Comment on above: A hematocrit value g reater than 55% may lead to inaccurate results in coagulation testing. Patients having hematocrit values >55% require a special collection tube for coagulation studies. Please contact the laboratory at [phone] for redraw instructions. Automated basophil %Ordered By: Josi Capone on 06-30-2023 Basophils/100 WBC (Bld) 0.9 % Normal . [facility] Comment on above: Performed By: #### C BC, BMP, PTT, PT #### [address] Automated basophil countOrde red By: Josi Capone on 06-30-2023 Basophils (Bld) [#/Vol] 0.1 10*3/uL Normal 0.0-0.2 [facility] Comment on above: Result Comment: PERF ORMED BY: [place] [address] PATHOLOGIST CLERK TELE[employer]ION [employer]ODUCTION TONY DAWKINS M.D. Performed By: #### C BC, BMP, PTT, PT #### [address] Automated blood monocyte cou ntOrdered By: Josi Capone on 06-30-2023 Monocytes (Bld) [#/Vol] 0.5 10*3/uL Normal 0.0-0.8 [facility] Comment on above: Performed By: #### C BC, BMP, PTT, PT #### [address] Automated eosinophil %Ordere d By: Josi Capone on 06-30-2023 Eosinophils/100 WBC (Bld) 1.2 % Normal . [facility] Comment on above: Performed By: #### C BC, BMP, PTT, PT #### [address] Automated eosinophil countOr dered By: Josi Capone on 06-30-2023 Eosinophils (Bld) [#/Vol] 0.1 10*3/uL Normal 0.0-0.45 [facility] Comment on above: Performed By: #### C BC, BMP, PTT, PT #### [facility] [address] Automated monocyte %Ordered By: Josi Capone on 06-30-2023 Monocytes/100 WBC (Bld) 7.5 % Normal . [facility] Comment on above: Performed By: #### C BC, BMP, PTT, PT #### [facility] [address] Automated neutrophil %Ordere d By: Josi Capone on 06-30-2023 Neutrophils/100 WBC (Bld) 61.7 % Normal . [facility] Comment on above: Performed By: #### C BC, BMP, PTT, PT #### [address] Basic Metabolic Panelon GFR/1.73 sq M.predicted MDRD (S/P/Bld) [Vol rate/Area] mL/min/{1.73_m2} Normal [facility] Comment on above: Performed By: #### C BC, BMP, PTT, PT #### [address] Calcium [Mass/volume] in Ser um or PlasmaOrdered By: Josi Capone on 06-30-2023 Calcium [Mass/Vol] 10.0 mg/dL Normal 8.6-10.3 [facility] Comment on above: Result Comment: PERF ORMED BY: [place] [address] PATHOLOGIST CLERK TE[employer]ODUCTION TONY DAWKINS M.D. Performed By: #### C BC, BMP, PTT, PT #### [address] Carbon dioxide, total [Moles /volume] in Serum or PlasmaOrdered By: Josi Capone on 06-30-2023 CO2 [Moles/Vol] 32.0 mmol/L High 21.0-31.0 [facility] Comment on above: Performed By: #### C BC, BMP, PTT, PT #### [place] [address] [place] Chloride [Moles/volume] in S lana or PlasmaOrdered By: Josi Capone on 06-30-2023 Chloride [Moles/Vol] 101 mmol/L Normal 98-107 [facility] Comment on above: Performed By: #### C BC, BMP, PTT, PT #### [facility] [address] Complete Blood Count Auto Di ffon 06-30-2023 Mean Corpuscular HGB Conc 33.8 g/dL Normal 32.5-35.6 [facility] Comment on above: Performed By: #### C BC, BMP, PTT, PT #### [facility] [address] NRBC% 0.2 /100{WBC} Normal 0-0.5 [facility] Comment on above: Performed By: #### C BC, BMP, PTT, PT #### [facility] [address] Creatinine [Mass/volume] in Serum or PlasmaOrdered By: Josi Capone on 06-30-2023 Creatinine [Mass/Vol] 1.12 mg/dL Normal 0.70-1.30 [facility] Comment on above: Performed By: #### C BC, BMP, PTT, PT #### [facility] [address] [place] [address] [place] ECG 12 lead ECGon 06-30-2023 ECG 12 lead ECG [facility] [place] [address] [place] [address] Electrocardiograph Report Signed Patient: Yina Boyer MR#: [id number] : 1950 Acct:[id number] Age/Sex: 72 / M ADM Date: 06/30/23 Loc: Room: Type: [facility] Attending Dr: Josi Capone MD Ordering Provider: Josi Capone MD Date of Service: 06/30/2308/17/1005 ECG/ECG 12 lead ECG: PST Copies to: Test Reason : Blood Pressure : / mmHG Vent. Rate : 063 BPM Atrial Rate : 063 BPM P-R Int : 194 ms QRS Dur : 102 ms QT Int : 416 ms P-R-T Axes : 053 -05 049 degrees QTc Int : 425 ms Normal sinus rhythm Normal ECG No previous ECGs available Confirmed by JEFF MURRAY [facility], ALEXSANDRA ([id number]) on 06/30/2023 11:39:43 AM Referred By: JERICHO Electronically Signed By:ALEXSANDRA AGUILAR MD [facility] Transcribed By: EMERITA Signed By Alexsandra Aguilar MD, [facility] 06/30/23 1139 Normal [facility] Erythrocyte distribution wid th [Ratio] by Automated countOrdered By: Josi Capone on 06-30-2023 Erythrocyte distribution width (RBC) [Ratio] 14.6 % Normal 12.0-14.8 [facility] Comment on above: Performed By: #### C BC, BMP, PTT, PT #### [facility] [address] [place] [address] [place] Erythrocytes [#/volume] in B lood by Automated countOrdered By: Josi Capone on 06-30-2023 RBC (Bld) [#/Vol] 5.50 10*6/uL Normal 3.90-5.60 [facility] Comment on above: Performed By: #### C BC, BMP, PTT, PT #### [facility] [address] [place] [address] [place] Glucose [Mass/volume] in Ser um or PlasmaOrdered By: Josi Capone on 06-30-2023 Glucose [Mass/Vol] 153 mg/dL High 70-100 [facility] Comment on above: ADA recommended refe rence rangeRandom Glucose Reference Range is dependent on time and content of last meal. Glucose of more than 200 mg/dL in a nonstressed, ambulatory subject supports the diagnosis of Diabetes Mellitus. Result Comment: [place] om Glucose Reference Range is dependent on time and content of last meal. Glucose of more than 200 mg/dL in a nonstressed, ambulatory subject supports the diagnosis of Diabetes Mellitus. ADA recommended reference range Performed By: #### C BC, BMP, PTT, PT #### [facility] [address] [place] [id number] [place] Hematocrit [Volume Fraction] of Blood by Automated countOrdered By: Josi Capone on 06-30-2023 Hematocrit (Bld) [Volume fraction] 47.0 % Normal 38.8-50.0 [facility] Comment on above: Performed By: #### C BC, BMP, PTT, PT #### [facility] [address] Hemoglobin [Mass/volume] in BloodOrdered By: Josi Capone on 06-30-2023 Hemoglobin (Bld) [Mass/Vol] 15.9 g/dL Normal 13.0-17.0 [facility] Comment on above: Performed By: #### C BC, BMP, PTT, PT #### [facility] [address] INR in Platelet poor plasma by Coagulation assayOrdered By: Josi Capone on 06-30-2023 INR Coag (PPP) [Relative time] 1.0 {INR} Normal [facility] Comment on above: INR Therapeutic Rang e A) Pre- and Peroperative OAT started two weeks before surgery. NOT HIP SURGERY: 1.5 - 2.5 HIP SURGERY: 2 - 3B) Primary and secondary prevention of venous THROMBOSIS: 2 - 3C) Active venous thrombosis, pulmonary embolismand prevention of recurrent venous thrombosis: 2 - 3D) Prevention of arterial thromboembolismincluding patients with mechanical heart valves: 3 - 4.5 Result Comment: INR Therapeutic Range A) Pre- and Peroperative OAT started two weeks before surgery. NOT HIP SURGERY: 1.5 - 2.5 HIP SURGERY: 2 - 3 B) Primary and secondary prevention of venous THROMBOSIS: 2 - 3 C) Active venous thrombosis, pulmonary embolism and prevention of recurrent venous thrombosis: 2 - 3 D) Prevention of arterial thromboembolism including patients with mechanical heart valves: 3 - 4.5 Performed By: #### C BC, BMP, PTT, PT #### [facility] [address] Leukocytes [#/volume] correc rafaela for nucleated erythrocytes in Blood by Automated counOrdered By: Josi Capone on 06-30-2023 WBC corrected for nucl RBC Auto (Bld) [#/Vol] 6.4 10*3/uL 4.1-10.5 [facility] Leukocytes [#/volume] in Blo od by Automated countOrdered By: Josi Capone on 06-30-2023 WBC (Bld) [#/Vol] 6.4 10*3/uL Normal 4.1-10.5 [facility] Comment on above: Performed By: #### C BC, BMP, PTT, PT #### [facility] [address] Lymphocytes [#/volume] in Bl ood by Automated countOrdered By: Josi Capone on 06-30-2023 Lymphocytes (Bld) [#/Vol] 1.8 10*3/uL Normal 1.00-4.8 [facility] Comment on above: Performed By: #### C BC, BMP, PTT, PT #### [facility] [address] Lymphocytes/100 leukocytes i n Blood by Automated countOrdered By: Josi Capone on 06-30-2023 Lymphocytes/100 WBC (Bld) 28.7 % Normal . [facility] Comment on above: Performed By: #### C BC, BMP, PTT, PT #### [address] MCH [Entitic mass] by Automa rafaela countOrdered By: Josi Capone on 06-30-2023 MCH (RBC) [Entitic mass] 28.9 pg Normal 27.5-35.2 [facility] Comment on above: Performed By: #### C BC, BMP, PTT, PT #### [address] MCHC Auto (RBC) [Mass/Vol]Or dered By: Josi Capone on 06-30-2023 MCHC (RBC) [Mass/Vol] 33.8 g/dL 32.5-35.6 [facility] MCV [Entitic volume] by Auto mated countOrdered By: Josi Capone on 06-30-2023 MCV (RBC) [Entitic vol] 85.5 fL Normal 83.5-101 [facility] Comment on above: Performed By: #### C BC, BMP, PTT, PT #### [place] [address] [place] Neutrophils [#/volume] in Bl ood by Automated countOrdered By: Josi Capone on 06-30-2023 Neutrophils (Bld) [#/Vol] 3.9 10*3/uL Normal 1.8-7.7 [facility] Comment on above: Performed By: #### C BC, BMP, PTT, PT #### [facility] [address] [place] [address] No Panel InformationOrdered By: Josi Capone on 06-30-2023 Estimated GFR (CKD-EPI) > 60.0 mL/Min [facility] Creatinine Clearance (Chem N/A [facility] Nucleated erythrocytes [Pres ence] in Blood by Automated countOrdered By: Josi Capone on 06-30-2023 Nucleated RBC Auto Ql (Bld) 0.2 /100{WBC} 0-0.5 [facility] Partial Thromboplastin Timeo n 06-30-2023 aPTT Coag (Bld) [Time] 30.8 s Normal 25.1-36.5 [facility] Comment on above: Result Comment: A he matocrit value greater than 55% may lead to inaccurate results in coagulation testing. Patients having hematocrit values >55% require a special collection tube for coagulation studies. Please contact the laboratory at [phone] for redraw instructions. PERFORMED BY: [place] [address] PATHOLOGIST CLERK TELE[employer]ION [employer]ODUCTION TONY DAWKINS M.D. Performed By: #### C BC, BMP, PTT, PT #### [facility] [address] [place] [address] Platelet mean volume [Entiti c volume] in Blood by Automated countOrdered By: Josi Capone on 06-30-2023 Platelet mean volume (Bld) [Entitic vol] 8.2 fL Normal 6.6-10.1 [facility] Comment on above: Performed By: #### C BC, BMP, PTT, PT #### [facility] [address] [place] [address] Platelets [#/volume] in Bloo d by Automated countOrdered By: Josi Capone on 06-30-2023 Platelets (Bld) [#/Vol] 202 10*3/uL Normal 150-450 [facility] Comment on above: Performed By: #### C BC, BMP, PTT, PT #### [address] Potassium [Moles/volume] in Serum or PlasmaOrdered By: Josi Capone on 06-30-2023 Potassium [Moles/Vol] 4.0 mmol/L Normal 3.5-5.1 [facility] Comment on above: Performed By: #### C BC, BMP, PTT, PT #### [address] Prothrombin time (PT)Ordered By: Josi Capone on 06-30-2023 PT Coag (PPP) [Time] 11.2 s Normal 9.0-12.9 [facility] Comment on above: A hematocrit value g reater than 55% may lead to inaccurate results in coagulation testing. Patients having hematocrit values >55% require a special collection tube for coagulation studies. Please contact the laboratory at [phone] for redraw instructions. Result Comment: A he matocrit value greater than 55% may lead to inaccurate results in coagulation testing. Patients having hematocrit values >55% require a special collection tube for coagulation studies. Please contact the laboratory at [phone] for redraw instructions. Performed By: #### C BC, BMP, PTT, PT #### [address] Serum or plasma anion gap de terminationOrdered By: Josi Capone on 06-30-2023 Anion gap [Moles/Vol] 12.0 mmol/L Normal 6.0-15.0 [facility] Comment on above: Performed By: #### C BC, BMP, PTT, PT #### [address] Sodium [Moles/volume] in Ser um or PlasmaOrdered By: Josi Capone on 06-30-2023 Sodium [Moles/Vol] 141 mmol/L Normal 136-145 [facility] Comment on above: Performed By: #### C BC, BMP, PTT, PT #### [address] Urea nitrogen [Mass/volume] in Serum or PlasmaOrdered By: Josi Capone on 06-30-2023 Urea nitrogen [Mass/Vol] 20 mg/dL Normal 7- [facility] Comment on above: Performed By: #### C BC, BMP, PTT, PT #### [facility] [address] [place] [address] RAD - MRI Reporton RAD - MRI Report [id number] Normal [facility] ISTAT XRay CREon 05-23-2023 ISTAT GFR > 60.0 Normal [facility] Comment on above: Result Comment: PERF ORMED BY: [place] [address] PATHOLOGIST CLERK TELEVISION PRODUCTION TONY DAWKINS M.D. Performed By: #### I SCRE #### [address] MR prostate wo/w conon 05-23 MR prostate wo/w con [facility] Main [place] [address] [place] [address] MRI Report Signed Patient: Yina Boyer MR#: [id number] : 1950 Acct:[id number] Age/Sex: 72 / M ADM Date: 05/23/23 Loc: Room: Type: [facility] Attending Dr: Ines Pisano MD Copies to: Ines Pisano MD Ordering Provider: Ines Pisano MD Date of Service: 05/23/23 MR/MR prostate wo/w con: R97.20, Z80.42 EXAMINATION: MR prostate wo/w con HISTORY: Elevated PSA. COMPARISON: NONE TECHNIQUE: Multiparametric imaging of the prostate gland was performed with IV contrast. FINDINGS: Prostate Dimensions: 4.8 x 3.3 x 4.2 cm Prostate Volume: 35 mL Peripheral Zone: Heterogenous inT2 signal suggestive of prior prostatitis. A focal area of T2 hypointensity is identified involving the lateral aspect of the right peripheral zone at the level of the mid gland to the base measuring 14 x 13 mm. There appears to the capsular bulging suggestive of extracapsular extension. There is associated restricted diffusion and low ADC value. Please see series 4 image 19, series 650 image 16 and series 600 image 16. Central/Transitional Zone: BPH changes. Seminal Vesicles: Decompressed without focal abnormality. Neurovascular bundles: Unremarkable. Lymphadenopathy: No evidence of lymphadenopathy. Bladder: No focal lesion. Bowel: Diverticulosis. Peritoneal Cavity: No free fluid. Bones: No suspicious bony lesion. MR/MR prostate wo/w con IMPRESSION: A focal area of T2 hypointensity is identified involving the lateral aspect of the right peripheral zone at the level of the mid gland to the base measuring 14 x 13 mm. There appears to the capsular bulging suggestive of extracapsular extension. There is associated restricted diffusion and low ADC value. Please see series 4 image 19, series 650 image 16 and series 600 image 16. PI-RADS 5. Targeting of this area on biopsy is recommended. Impression dictated by: Homero Hinton Jr., D.O.05/23/2023 1:40 PM Dictation Location: [place] [address] Transcribed By: [facility] 05/23/23 1340 Dictated By: Homero Hinton Jr, DO 05/23/23 1333 Signed By: 05/23/23 1340 Normal [facility] No Panel InformationOrdered By: Ines Pisano on 05-23-2023 Bedside Estimated GFR (eGFR) > 60.0 [facility] Whole blood creatinine measu rementOrdered By: Ines Pisano on 05-23-2023 Creatinine [Mass/Vol] 1.1 mg/dL Normal 0.6-1.3 [facility] Comment on above: ER/ESD physician is notified/shown all ISTAT results.Critical values may be confirmed by laboratory testing ifdeemed necessary by ER attending doctor. Result Comment: ER/E SD physician is notified/shown all ISTAT results. Critical values may be confirmed by laboratory testing if deemed necessary by ER attending doctor. Performed By: #### I SCRE #### [facility] [address] [place] [address] HbA1c (Bld) [Mass fraction]o n 02-12-2024 Interpretation and review of laboratory results Normal [facility] - Hematology and Cell countson 05-08-2023 HbA1c (Bld) [Mass fraction] 7.1 % [facility] Facesheeton 04-24-2023 Facesheet [id number] Normal [facility] Formson 04-24-2023 Forms [id number] Normal [facility] Lab Reportson 04-24-2023 Lab Reports [id number]#1.00TIFF [facility] Screenson 04-24-2023 Screens [id number]#1.00TIFF [facility] Screens [id number]#1.00TIFF [facility] Ambulatory Visit Summaryon 0 04-21-2023 Ambulatory Visit Summary YINA POSADA :1950 Visit Date:04/21/2023 Ambulatory Visit Instructions Your Diagnosis Elevated PSA Family history of prostate cancer in father Diabetes mellitus, type II Your Care Team Attending Physician - Ines Pisano MD Primary Care Physician - SRIRAM BREWSTER DO This Is Your Medications List Contact prescribing physician if questions or concerns allopurinol (allopurinol 100 mg Tab) amlodipine (amLODIPine 5 mg Tab) atorvastatin (atorvastatin 20 mg Tab) chlorthalidone (chlorthalidone 25 mg Tab) empagliflozin (Jardiance) metformin-repaglinide (metformin-repaglinide 500 mg-2 mg oral tablet) metoprolol (Metoprolol tartrate 50 mg Tab) omega-3 polyunsaturated fatty acids (Fish Oil) trazodone (traZODONE 50 mg Tab) Procedures Performed Colonoscopy. Discharge Vitals Height 178 cm Height 70 in Weight 107 kg Weight 235.4 lb BMI 33.77 What to do next You Need to Schedule the Following Appointments Follow Up with Norris MURRAY, Ines Jo, WILFRIDO, URO When: Comments: sched prostate MRI Where: [address], [place] [address] [phone] Medications What How Much When Instructions Unchanged allopurinol (allopurinol 100 mg Tab) By Mouth Contact prescribing physician if questions or concerns Unchanged amlodipine (amLODIPine 5 mg Tab) By Mouth Every day Contact prescribing physician if questions or concerns Unchanged atorvastatin (atorvastatin 20 mg Tab) By Mouth Every day Contact prescribing physician if questions or concerns Unchanged chlorthalidone (chlorthalidone 25 mg Tab) By Mouth Every day Contact prescribing physician if questions or concerns Unchanged empagliflozin (Jardiance) By Mouth Once a day (in the morning) Contact prescribing physician if questions or concerns Unchanged metformin-repaglinide (metformin-repaglinide 500 mg-2 mg oral tablet) 1 Tablets By Mouth 2 times a day within 30 minutes to immediately before a meal; skip dose if meal skipped Contact prescribing physician if questions or concerns Unchanged metoprolol (Metoprolol tartrate 50 mg Tab) By Mouth 2 times a day Contact prescribing physician if questions or concerns Unchanged omega-3 polyunsaturated fatty acids (Fish Oil) By Mouth Contact prescribing physician if questions or concerns Unchanged trazodone (traZODONE 50 mg Tab) By Mouth Contact prescribing physician if questions or concerns Allergies No Known Medication Allergies Problems Ongoing - Any problem that you are currently receiving treatment for. COPD type A Diabetes mellitus, type II Elevated PSA Family history of prostate cancer in father Patient Survey You may receive a survey via text or e-mail asking about your office visit. Please share your experience with us by completing your survey. We appreciate your feedback and thank you for choosing us for your care. Education Materials Prostate Cancer Screening Prostate cancer screening is testing that is done to check for the presence of prostate cancer in men. The prostate gland is a walnut-sized gland that is located below the bladder and in front of the rectum in males. The function of the prostate is to add fluid to semen during ejaculation. Prostate cancer is one of the most common types of cancer in men. Who should have prostate cancer screening? Screening recommendations vary based on age and other risk factors, as well as between the professional organizations who make the recommendations. In general, screening is recommended if: ? You are age 50 to 70 and have an average risk for prostate cancer. You should talk with your health care provider about your need for screening and how often screening should be done. Because most prostate cancers are slow growing and will not cause , screening in this age group is generally reserved for men who have a 10- to 15-year life expectancy. ? You are younger than age 50, and you have these risk factors: ? Having a father, brother, or uncle who has been diagnosed with prostate cancer. The risk is higher if your family member's cancer occurred at an early age or if you have multiple family members with prostate cancer at an early age. ? Being a male who is Black or is of [place] or sub-Saharan descent. In general, screening is not recommended if: ? You are younger than age 40. ? You are between the ages of 40 and 49 and you have no risk factors. ? You are 70 years of age or older. At this age, the risks that screening can cause are greater than the benefits that it may provide. If you are at high risk for prostate cancer, your health care provider may recommend that you have screenings more often or that you start screening at a younger age. How is screening for prostate cancer done? The recommended prostate cancer screening test is a blood test called the prostate-specific antigen (PSA) test. PSA is a protein that is made in the prostate (more content not included)... Normal [facility] Patient Educationon 04-21-19 Patient Education Oncology Prostate Cancer Screening Prostate cancer screening is testing that is done to check for the presence of prostate cancer in men. The prostate gland is a walnut-sized gland that is located below the bladder and in front of the rectum in males. The function of the prostate is to add fluid to semen during ejaculation. Prostate cancer is one of the most common types of cancer in men. Who should have prostate cancer screening? Screening recommendations vary based on age and other risk factors, as well as between the professional organizations who make the recommendations. In general, screening is recommended if: ? You are age 50 to 70 and have an average risk for prostate cancer. You should talk with your health care provider about your need for screening and how often screening should be done. Because most prostate cancers are slow growing and will not cause , screening in this age group is generally reserved for men who have a 10- to 15-year life expectancy. ? You are younger than age 50, and you have these risk factors: ? Having a father, brother, or uncle who has been diagnosed with prostate cancer. The risk is higher if your family member's cancer occurred at an early age or if you have multiple family members with prostate cancer at an early age. ? Being a male who is Black or is of [place] or sub-Saharan descent. In general, screening is not recommended if: ? You are younger than age 40. ? You are between the ages of 40 and 49 and you have no risk factors. ? You are 70 years of age or older. At this age, the risks that screening can cause are greater than the benefits that it may provide. If you are at high risk for prostate cancer, your health care provider may recommend that you have screenings more often or that you start screening at a younger age. How is screening for prostate cancer done? The recommended prostate cancer screening test is a blood test called the prostate-specific antigen (PSA) test. PSA is a protein that is made in the prostate. As you age, your prostate naturally produces more PSA. Abnormally high PSA levels may be caused by: ? Prostate cancer. ? An enlarged prostate that is not caused by cancer (benign prostatic hyperplasia, or BPH). This condition is very common in older men. ? A prostate gland infection (prostatitis) or urinary tract infection. ? Certain medicines such as male hormones (like testosterone) or other medicines that raise testosterone levels. A rectal exam may be done as part of prostate cancer screening to help provide information about the size of your prostate gland. When a rectal exam is performed, it should be done after the PSA level is drawn to avoid any effect on the results. Depending on the PSA results, you may need more tests, such as: ? A physical exam to check the size of your prostate gland, if not done as part of screening. ? Blood and imaging tests. ? A procedure to remove tissue samples from your prostate gland for testing (biopsy). This is the only way to know for certain if you have prostate cancer. What are the benefits of prostate cancer screening? ? Screening can help to identify cancer at an early stage, before symptoms start and when the cancer can be treated more easily. ? There is a small chance that screening may lower your risk of dying from prostate cancer. The chance is small because prostate cancer is a slow-growing cancer, and most men with prostate cancer from a different cause. What are the risks of prostate cancer screening? The main risk of prostate cancer screening is diagnosing and treating prostate cancer that would never have caused any symptoms or problems. This is called overdiagnosisand overtreatment. PSA screening cannot tell you if your PSA is high due to cancer or a different cause. A prostate biopsy is the only procedure to diagnose prostate cancer. Even the results of a biopsy may not tell you if your cancer needs to be treated. Slow-growing prostate cancer may not need any treatment other than monitoring, so diagnosing and treating it may cause unnecessary stress or other side effects. Questions to ask your health care provider ? When should I start prostate cancer screening? ? What is my risk for prostate cancer? ? How often do I need screening? ? What type of screening tests do I need? ? How do I get my test results? ? What do my results mean? ? Do I need treatment? Where to find more information ? The [place] [employer]: www.cancer.org ? [place] [employer]: www.auanet.org Contact a health care provider if: ? You have difficulty urinating. ? You have pain when you urinate or ejaculate. ? You have blood in your urine or semen. ? You have pain in your back or in the area of your prostate. Summary ? Prostate cancer is a common type of cancer in men. The prostate gland is located below the bladder and in front of the rectum. This gland adds flu (more content not included)... Normal [facility] Urology Office/Clinic Noteon 04-21-2023 Urology Office/Clinic Note Chief Complaint Pt referred for elevated PSA HPI Staff New Pt. Referral per Sriram Brewster DO due to elevated PSA. PSA: 5.17-02/16/23 1.9 & 16% 08/01/22 4.14 03/14/22 4.2 & 17% 11/19/21 Dysuria: denies pain and burning Incomplete bladder emptying: denies Hematuria: denies visible blood Frequency: 6x a day Urgency: denies Nocturia: once a night Stream: denies hesitancy Leaking: denies Post void dripping: denies Wearing pads/ Depends: denies Urge incontinence: denies Stress incontinence: denies Incontinence without Sensory Awareness: denies Abdominal pain: denies Flank pain: denies Sexual complaints: _ History of Present Illness Tests reviewed: reviewed UA, external referral records, PSAs, labs I have reviewed the previous health record information and history for this patient from external providers. I have reviewed and verified the staff HPI to be accurate for this encounter. Review of Systems PHQ Score Initial Depression Screen Score: 0 SCORE ROS - Provider Constitutional: denies weight loss, denies hot flashes. Eyes: denies eye problems. Gastrointestinal: denies nausea, denies vomiting. Cardiovascular: denies chest pain or angina. Integumentary: no dryness Musculoskeletal: denies musculoskeletal symptoms. ENMT: denies otolaryngeal symptoms. Respiratory: no shortness of breath. Heme/Lymph: denies easy bleeding tendency, denies easy bruising tendency. Psychiatric: no confusion, no anxiety. Genitourinary: See HPI. Physical Exam Vitals & Measurements HT: 70 in HT: 178 cm WT: 107 kg WT: 235.4 lb BMI: 33.77 General Appearance: alert, no distress, well nourished, well developed male. Head: normocephalic . Eyes: normal orbit and globe. ENMT: normal examination of external ears. Chest: symmetric chest rise, respirations non labored. Cardiovascular: regular rate and rhythm. Abdomen: soft, non distended, no tenderness Genitourinary: Flank Pain: none. Bladder: nonpalpable. Prostate: mild to moderately enlarged prostate, no hard nodule observed, nontender Skin: warm, dry, no bruising. Psychiatric: cooperative, affect appropriate for age, normal judgement, euthymic mood. Assessment/Plan Booker is a 72 yo male new pt referred by Dr. Sriram Brewster for elevated PSA. No hx of VT or stroke. 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 UMLU 15. 1. Elevated PSA (R97.20: Elevated prostate specific antigen [PSA]) PSA 01/23/18 - 1.9 11/19/21 - 4.2 & 17% 03/14/22 - 4.14 08/01/22 - 1.9 & 16% 02/16/23 - 5.17 03/29/23 - 6.2 & 16% Fam hx of colon ca in bother, dx'd in 50s. Father passed at 88yo, believes he had prostate ca. JEFF: benign Today I reviewed the patients past history including voiding symptoms, PSA history and any prior prostate biopsy information that is available. We discussed the controversies that exist in the field of PSA based cancer testing and the absence of exact correlation of PSA data to the presence or absence of prostate cancer on biopsy. I discussed the production of PSA by the prostate gland as well as common causes of elevated serum PSA including infection, inflammation, BPH and prostate cancer. He understood that his PSA level may also be falsely elevated due to any manipulation/instrumentati on around the time of a PSA draw. I discussed the absolute value of PSA as well as PSA velocity and age specific PSA and the implications with the patient. I gave the patient management options moving forward and explained the risks/benefits of each one: -Continue monitoring PSA with repeat in 6-12 months -Obtain additional biomarkers such as select MDX -Obtain prostate MRI to evaluate for suspicious lesions. He understands MRIs may miss malignancy in 12-16% of patients. We discussed risks of MRI fusion prostate biopsy approaches including transrectal and transperineal. Risks of the procedure were discussed to include but not be limited to bleeding, pain, infection (higher, including sepsis with transrectal approach), difficulties with urination, injury to the urethra, prostate or bladder or surrounding tissues, injury from positioning on the table, swelling and bruising of the skin, and need for further procedures. Pt prefers MRI fusion prostate biopsy transperineal approach and to be under anesthesia if MRI is suspicious for malignancy. However if MRI is negative, pt prefers to just monitor PSA vs proceeding with prostate biopsy. Also discussed options of having one of my partners proceed with TRUS/bx now, but pt prefers to wait to proceed with biopsy until I return in August. -Schedule MRI prostate. If lesion noted, will proceed with MRI fusion transperineal prostate biopsy under MAC prior to leave. If not able to be before then, will be done when I return per patient request. Understands the risk of progression if malignancy is undiagnosed. -If MRI negative, PSA free and total in 6 months 2. Family history of prostate cancer in father (Z80.42: Family hist (more content not included)... Normal [facility] Comment on above: Result Comment: Elec tronically Signed By: Norris MURRAY, Ines Jo\.br\Date and Time Signed: 04/21/23 17:05 EST Lab Reportson 03-31-2023 Lab Reports [id number] [facility] Vital Signs Date Time Vital Sign Value Performing Clinician Facility 11-06-2023 10:47-0400 Body mass index (BMI) [Ratio] 33.34 kg/m2 RADHA Ramos MD Work Phone: [facility] 11-06-2023 10:47-0400 Body temperature 97.39 [degF] RADHA Ramos MD Work Phone: [facility] 11-06-2023 10:47-0400 Body weight 105.4 kg RADHA Ramos MD Work Phone: [facility] 11-06-2023 10:47-0400 Diastolic blood pressure 86 mm[Hg] RADHA Ramos MD Work Phone: [facility] 11-06-2023 10:47-0400 Heart rate 64 /min RADHA Ramos MD Work Phone: [facility] 11-06-2023 10:47-0400 Respiratory rate 18 /min RADHA Ramos MD Work Phone: [facility] 11-06-2023 10:47-0400 SaO2% (BldA) [Mass fraction] 97 % RADHA Ramos MD Work Phone: [facility] 11-06-2023 10:47-0400 Systolic blood pressure 132 mm[Hg] RADHA Ramos MD Work Phone: [facility] 10-30-2023 10:37-0400 Body mass index (BMI) [Ratio] 33.34 kg/m2 RADHA Ramos MD Work Phone: [facility] 10-30-2023 10:37-0400 Body temperature 97.59 [degF] RADHA Ramos MD Work Phone: [facility] 10-30-2023 10:37-0400 Body weight 105.4 kg RADHA Ramos MD Work Phone: [facility] 10-30-2023 10:37-0400 Diastolic blood pressure 84 mm[Hg] RADHA Ramos MD Work Phone: [facility] 10-30-2023 10:37-0400 Heart rate 57 /min RADHA Ramos MD Work Phone: [facility] 10-30-2023 10:37-0400 Respiratory rate 16 /min RADHA Ramos MD Work Phone: [facility] 10-30-2023 10:37-0400 SaO2% (BldA) [Mass fraction] 97 % RADHA Ramos MD Work Phone: [facility] 10-30-2023 10:37-0400 Systolic blood pressure 129 mm[Hg] RADHA Ramos MD Work Phone: [facility] 10-23-2023 10:30-0400 Body mass index (BMI) [Ratio] 33.53 kg/m2 RADHA Ramos MD Work Phone: [facility] 10-23-2023 10:30-0400 Body temperature 97.39 [degF] RADHA Ramos MD Work Phone: [facility] 10-23-2023 10:30-0400 Body weight 106 kg RADHA Ramos MD Work Phone: [facility] 10-23-2023 10:30-0400 Diastolic blood pressure 85 mm[Hg] RADHA Ramos MD Work Phone: [facility] 10-23-2023 10:30-0400 Heart rate 66 /min RADHA Ramos MD Work Phone: [facility] 10-23-2023 10:30-0400 Respiratory rate 16 /min RADHA Ramos MD Work Phone: [facility] 10-23-2023 10:30-0400 SaO2% (BldA) [Mass fraction] 98 % RADHA Ramos MD Work Phone: [facility] 10-23-2023 10:30-0400 Systolic blood pressure 128 mm[Hg] RADHA Ramos MD Work Phone: [facility] 10-16-2023 10:36-0400 Body mass index (BMI) [Ratio] 33.34 kg/m2 RADHA Ramos MD Work Phone: [facility] 10-16-2023 10:36-0400 Body temperature 96.8 [degF] RADHA Ramos MD Work Phone: [facility] 10-16-2023 10:36-0400 Body weight 105.4 kg RADHA Ramos MD Work Phone: [facility] 10-16-2023 10:36-0400 Diastolic blood pressure 77 mm[Hg] RADHA Ramos MD Work Phone: [facility] 10-16-2023 10:36-0400 Heart rate 60 /min RADHA Ramos MD Work Phone: [facility] 10-16-2023 10:36-0400 Respiratory rate 18 /min RADHA Ramos MD Work Phone: [facility] 10-16-2023 10:36-0400 SaO2% (BldA) [Mass fraction] 98 % RADHA Ramos MD Work Phone: [facility] 10-16-2023 10:36-0400 Systolic blood pressure 127 mm[Hg] RADHA Ramos MD Work Phone: [facility] 10-09-2023 10:30-0400 Body mass index (BMI) [Ratio] 33.53 kg/m2 RADHA Ramos MD Work Phone: [facility] 10-09-2023 10:30-0400 Body temperature 96.49 [degF] RADHA Ramos MD Work Phone: [facility] 10-09-2023 10:30-0400 Body weight 106 kg RADHA Ramos MD Work Phone: [facility] 10-09-2023 10:30-0400 Diastolic blood pressure 81 mm[Hg] RADHA Ramos MD Work Phone: [facility] 10-09-2023 10:30-0400 Heart rate 65 /min RADHA Ramos MD Work Phone: [facility] 10-09-2023 10:30-0400 Respiratory rate 18 /min RADHA Ramos MD Work Phone: [facility] 10-09-2023 10:30-0400 SaO2% (BldA) [Mass fraction] 98 % RADHA Ramos MD Work Phone: [facility] 10-09-2023 10:30-0400 Systolic blood pressure 134 mm[Hg] RADHA Ramos MD Work Phone: [facility] 10-04-2023 11:17-0400 Body mass index (BMI) [Ratio] 34.8 kg/m2 RADHA Ramos MD Work Phone: [facility] 10-04-2023 11:17-0400 Body temperature 97.5 [degF] RADHA Ramos MD Work Phone: [facility] 10-04-2023 11:17-0400 Body weight 110 kg RADHA Ramos MD Work Phone: [facility] 10-04-2023 11:17-0400 Diastolic blood pressure 87 mm[Hg] RADHA Ramos MD Work Phone: [facility] 10-04-2023 11:17-0400 Heart rate 58 /min RADHA Ramos MD Work Phone: [facility] 10-04-2023 11:17-0400 Respiratory rate 16 /min RADHA Ramos MD Work Phone: [facility] 10-04-2023 11:17-0400 SaO2% (BldA) [Mass fraction] 98 % RADHA Ramos MD Work Phone: [facility] 10-04-2023 11:17-0400 Systolic blood pressure 131 mm[Hg] RADHA Ramos MD Work Phone: [facility] 09-08-2023 15:23-0400 Body temperature 98.6 [degF] Ines Pisano [facility] 09-08-2023 15:23-0400 Diastolic blood pressure 83 mm[Hg] Ines Lue [facility] 09-08-2023 15:23-0400 Heart rate 71 /min Ines Lue [facility] 09-08-2023 15:23-0400 Respiratory rate 16 /min Ines Lue [facility] 09-08-2023 15:23-0400 Systolic blood pressure 117 mm[Hg] Ines Lue [facility] 08-23-2023 10:15-0400 Body mass index (BMI) [Ratio] 33.69 kg/m2 RADHA Ramos MD Work Phone: [facility] 08-23-2023 10:15-0400 Body temperature 97.39 [degF] RADHA Ramos MD Work Phone: [facility] 08-23-2023 10:15-0400 Body weight 106.5 kg RADHA Ramos MD Work Phone: [facility] 08-23-2023 10:15-0400 Diastolic blood pressure 93 mm[Hg] RADHA Ramos MD Work Phone: [facility] 08-23-2023 10:15-0400 Heart rate 57 /min RADHA Ramos MD Work Phone: [facility] 08-23-2023 10:15-0400 Respiratory rate 18 /min RADHA Ramos MD Work Phone: [facility] 08-23-2023 10:15-0400 SaO2% (BldA) [Mass fraction] 98 % RADHA Ramos MD Work Phone: [facility] 08-23-2023 10:15-0400 Systolic blood pressure 140 mm[Hg] RADHA Ramos MD Work Phone: [facility] 08-22-2023 11:09-0400 Body temperature 97 [degF] DO Sriram Brewster Work Phone: [facility] 08-22-2023 11:09-0400 Body weight 106.59 kg DO Sriram Brewster Work Phone: [facility] 08-22-2023 11:09-0400 Diastolic blood pressure 84 mm[Hg] DO Sriram Brewster Work Phone: [facility] 08-22-2023 11:09-0400 Heart rate 64 /min DO Sriram Brewster Work Phone: [facility] 08-22-2023 11:09-0400 Respiratory rate 16 /min DO Sriram Brewster Work Phone: [facility] 08-22-2023 11:09-0400 SaO2% (BldA) [Mass fraction] 99 % DO Sriram Brewster Work Phone: [facility] 08-22-2023 11:09-0400 Systolic blood pressure 133 mm[Hg] DO Sriram Brewster Work Phone: [facility] 08-16-2023 09:51-0400 Body mass index (BMI) [Ratio] 34.2 kg/m2 Danisha Zendejas MD Work Phone: [facility] 08-16-2023 09:51-0400 Body weight 108.1 kg Danisha Zendejas MD Work Phone: [facility] 08-16-2023 09:51-0400 Diastolic blood pressure 83 mm[Hg] Danisha Zendeajs MD Work Phone: [facility] 08-16-2023 09:51-0400 Heart rate 58 /min Danisha Zendejas MD Work Phone: [facility] 08-16-2023 09:51-0400 Respiratory rate 18 /min Danisha Zendejas MD Work Phone: [facility] 08-16-2023 09:51-0400 SaO2% (BldA) [Mass fraction] 97 % Danisha Zendejas MD Work Phone: [facility] 08-16-2023 09:51-0400 Systolic blood pressure 129 mm[Hg] Danisha Zendejas MD Work Phone: [facility] 08-11-2023 13:33-0400 Body height 177.8 cm Irina Cabezas MD Work Phone: [facility] 08-11-2023 13:33-0400 Body mass index (BMI) [Ratio] 34.21 kg/m2 Irina Cabezas MD Work Phone: [facility] 08-11-2023 13:33-0400 Body weight 108.15 kg Irina Cabezas MD Work Phone: [facility] 07-27-2023 12:32-0400 Body temperature 98.6 [degF] Jositanja CAPONE [facility] 07-27-2023 12:32-0400 Diastolic blood pressure 81 mm[Hg] Jositanja CAPONE [facility] 07-27-2023 12:32-0400 Heart rate 72 /min Jositanja CAPONE [facility] 07-27-2023 12:32-0400 Respiratory rate 16 /min Jositanja CAPONE [facility] 07-27-2023 12:32-0400 Systolic blood pressure 127 mm[Hg] Jositanja CAPONE [facility] 07-14-2023 17:05-0400 Body height 177.8 cm DO Sriram Brewster Work Phone: [facility] 07-14-2023 17:05-0400 Body mass index (BMI) [Ratio] 34.4 kg/m2 DO Sriram Brewster Work Phone: [facility] 07-14-2023 17:05-0400 Body weight 109 kg DO Sriram Brewster Work Phone: [facility] 07-14-2023 16:24-0400 Diastolic blood pressure 77 mm[Hg] DO Sriram Brewster Work Phone: [facility] 07-14-2023 16:24-0400 Heart rate 56 /min DO Sriram Brewster Work Phone: [facility] 07-14-2023 16:24-0400 Respiratory rate 16 /min DO Sriram Brewster Work Phone: [facility] 07-14-2023 16:24-0400 SaO2% (BldA) [Mass fraction] 94 % DO Sriram Brewster Work Phone: [facility] 07-14-2023 16:24-0400 Systolic blood pressure 162 mm[Hg] DO Sriram Brewster Work Phone: [facility] 07-14-2023 13:25-0400 Body temperature 97.7 [degF] DO Sriram Brewster Work Phone: [facility] 05-23-2023 06:52-0500 Body height 177.8 cm DO Sriram Brewster Work Phone: [facility] 05-23-2023 06:52-0500 Body weight 106.59 kg DO Sriram Brewster Work Phone: [facility] 05-08-2023 09:38-0500 Body height 180.3 cm Rose Petsamanthaick DO Work Phone: [facility] 05-08-2023 09:38-0500 Body mass index (BMI) [Ratio] 33.33 kg/m2 Rose Petznick DO Work Phone: [facility] 05-08-2023 09:38-0500 Body temperature 98.4 [degF] Rose Petznick DO Work Phone: [facility] 05-08-2023 09:38-0500 Body weight 108.41 kg Rose Petznick DO Work Phone: [facility] 05-08-2023 09:38-0500 Diastolic blood pressure 66 mm[Hg] Rose Petznick DO Work Phone: [facility] 05-08-2023 09:38-0500 Heart rate 74 /min Rose Petznick DO Work Phone: [facility] 05-08-2023 09:38-0500 SaO2% (BldA) [Mass fraction] 97 % Rose Petznick DO Work Phone: [facility] 05-08-2023 09:38-0500 Systolic blood pressure 114 mm[Hg] Rose Petznick DO Work Phone: [facility] Healthcare Encounters Encounter Date Encounter Type Care Provider Facility Start: 03-08-2024 ambulatory Ines M. Lue Facility:[facility] Start: 12-22-2023 ambulatory Ines M. Lue [facility] Start: 12-13-2023 ambulatory Ines M. Lue Facility[facility] Start: 12-05-2023 End: 12-05-2023 ambulatory SRIRAM BREWSTER Not Available Start: 12-04-2023 End: 12-07-2023 Patient encounter procedure Verónica Ramos MD Work Phone: [facility] Start: 12-04-2023 End: 12-07-2023 Radiation Oncology Note Verónica Ramos MD Work Phone: [facility] Comment on above: Treatment Planning Start: 12-02-2023 End: 12-11-2023 ambulatory Verónica Ramos MD Work Phone: [facility] Comment on above: question about pre-o p test results Start: 11-30-2023 End: 12-02-2023 Radiation Oncology Note Verónica Ramos MD Work Phone: [facility] Comment on above: Simulation Note Start: 11-30-2023 End: 12-01-2023 ambulatory Verónica RAMOS Facility:[facility] Start: 11-30-2023 End: 12-02-2023 Patient encounter procedure Verónica Ramos MD Work Phone: [facility] Comment on above: Malignant neoplasm o f prostate (HCC) (Primary Dx) Start: 11-07-2023 End: 11-15-2023 Patient encounter procedure Verónica Ramos MD Work Phone: [facility] Start: 11-07-2023 End: 11-15-2023 Radiation Oncology Note Verónica Ramos MD Work Phone: [facility] Comment on above: Completion Note Start: 11-07-2023 End: 11-07-2023 ambulatory RADHA RAMOS Facility:[facility] Start: 11-06-2023 End: 11-06-2023 Patient encounter procedure Verónica Ramos MD Work Phone: [facility] Comment on above: Malignant neoplasm o f prostate (HCC) (Primary Dx) Start: 11-06-2023 End: 11-06-2023 ambulatory Verónica RAMOS Facility:[facility] Start: 11-03-2023 End: 11-03-2023 ambulatory RADHA RAMOS Facility:[facility] Start: 11-02-2023 End: 11-02-2023 ambulatory NA DASHAWNELEDenis Facility:[facility] Start: 11-01-2023 End: 11-01-2023 ambulatory NA DASHAWNELEDenis Facility:[facility] Start: 10-31-2023 End: 10-31-2023 ambulatory NA DASHAWNELEDenis Facility:[facility] Start: 10-30-2023 End: 10-30-2023 Patient encounter procedure Verónica Ramos MD Work Phone: Radiation Oncology Comment on above: Malignant neoplasm o f prostate (HCC) (Primary Dx) Start: 10-30-2023 End: 10-30-2023 ambulatory Verónica RAMOS Facility:[facility] Start: 10-27-2023 End: 10-27-2023 ambulatory NA ENGELER Facility:[facility] Start: 10-26-2023 End: 10-26-2023 ambulatory NA ENGELER Facility:[facility] Start: 10-25-2023 End: 10-25-2023 ambulatory NA ENGELER Facility:[facility] Start: 10-24-2023 End: 10-24-2023 ambulatory NA ENGELER Facility:[facility] Start: 10-23-2023 End: 10-23-2023 Patient encounter procedure Verónica Ramos MD Work Phone: Radiation Oncology Comment on above: Malignant neoplasm o f prostate (HCC) (Primary Dx) Start: 10-23-2023 End: 10-23-2023 ambulatory Verónica RAMOS Facility:[facility] Start: 10-20-2023 Patient encounter procedure [facility] Provider [place] Start: 10-20-2023 End: 10-20-2023 ambulatory NA ENGELER Facility:[facility] Start: 10-19-2023 End: 10-19-2023 ambulatory NA ENGELER Facility:[facility] Start: 10-18-2023 End: 10-18-2023 ambulatory NA ENGELER Facility:[facility] Start: 10-17-2023 End: 10-17-2023 ambulatory NA ENGELER Facility:[facility] Start: 10-16-2023 End: 10-16-2023 Patient encounter procedure Verónica Ramos MD Work Phone: Radiation Oncology Comment on above: Malignant neoplasm o f prostate (HCC) (Primary Dx) Start: 10-16-2023 End: 10-16-2023 ambulatory Verónica RAMOS Facility:[facility] Start: 10-13-2023 End: 10-13-2023 ambulatory NA ENGELER Facility:[facility] Start: 10-12-2023 End: 10-12-2023 Patient encounter procedure Lab/[facility] Ramirez Work Phone: Radiation Oncology Comment on above: Prostate cancer (HCC ) Start: 10-12-2023 End: 10-12-2023 ambulatory NA ENGELER Facility:[facility] Start: 10-11-2023 End: 10-11-2023 ambulatory NA ENGELER Facility:[facility] Start: 10-10-2023 End: 10-10-2023 ambulatory NA ENGELER Facility:[facility] Start: 10-09-2023 End: 10-09-2023 Patient encounter procedure Verónica Ramos MD Work Phone: Radiation Oncology Comment on above: Prostate cancer (HCC ) (Primary Dx) Start: 10-09-2023 End: 10-09-2023 ambulatory Verónica RAMOS Facility:[facility] Start: 10-06-2023 End: 10-06-2023 ambulatory NA ENGELEDenis Facility:[facility] Start: 10-05-2023 End: 10-05-2023 ambulatory NA ENGELER Facility:[facility] Start: 10-04-2023 End: 10-04-2023 Patient encounter procedure Verónica Ramos MD Work Phone: Radiation Oncology Comment on above: Prostate cancer (HCC ) (Primary Dx) Start: 10-04-2023 End: 10-04-2023 ambulatory Verónica RAMOS Facility:[facility] Start: 10-02-2023 Telephone encounter Verónica Ramos MD Work Phone: Radiation Oncology Comment on above: Orders Start: 09-20-2023 End: 09-20-2023 Patient encounter procedure Verónica Ramos MD Work Phone: Radiation Oncology Comment on above: Prostate cancer (HCC ) (Primary Dx) Start: 09-20-2023 Radiation Oncology Note Verónica Ramos MD Work Phone: Radiation Oncology Comment on above: Simulation Note Treatment Planning Start: 09-20-2023 Telephone encounter Verónica Ramos MD Work Phone: Radiation Oncology Start: 09-20-2023 End: 09-20-2023 ambulatory Verónica RAMOS Facility:[facility] Start: 09-20-2023 End: 09-20-2023 Subsequent hospital visit by physician Verónica Ramos MD Work Phone: Radiology Pet CT Start: 09-08-2023 End: 09-08-2023 ambulatory Ines Pisano Facility:[facility] Start: 09-08-2023 End: 09-08-2023 Patient encounter procedure Ines Sandro Hendrixcris [facility] [place] Start: 08-24-2023 End: 08-24-2023 ambulatory Verónica RAMOS Facility:[facility] Start: 08-23-2023 End: 08-23-2023 ambulatory Janette Merino RN Radiation Oncology Comment on above: Patient Education Start: 08-23-2023 End: 08-23-2023 Patient encounter procedure Verónica Ramos MD Work Phone: Radiation Oncology Comment on above: Prostate cancer (HCC ) (Primary Dx) Start: 08-22-2023 ambulatory Sriram Brewster Facility :[facility] Start: 08-22-2023 End: 08-22-2023 ambulatory DO Sriram Felicianoman Work Phone: [facility] Work Phone: Start: 08-22-2023 End: 08-22-2023 Patient encounter procedure DO Sriram Deborah Work Phone: [facility] Work Phone: Start: 08-22-2023 Registered Recurring DO Isiah Brewster [facility] Work Phone: Start: 08-16-2023 End: 08-17-2023 ambulatory Diamond Flynn RN [facility] & Start: 08-16-2023 End: 08-16-2023 Subsequent hospital visit by physician Pet[facility] Work Phone: Molecular Imaging Comment on above: Prostate cancer (HCC ) [C61] Start: 08-16-2023 End: 08-16-2023 Patient encounter procedure Danisha Zendejas MD Work Phone: Radiation Oncology Comment on above: Prostate cancer (HCC ) (Primary Dx) Start: 08-15-2023 End: 08-15-2023 ambulatory SRIRAM BREWSTER Not Available Start: 08-14-2023 Telephone encounter Alexa Wu elenajanet ROSE MARY Work Phone: Urology Comment on above: Nm Pet Request Start: 08-11-2023 End: 08-11-2023 ambulatory Irina Cabezas MD Work Phone: Urology Start: 08-11-2023 End: 08-11-2023 Patient encounter procedure Irina Cabezas MD Work Phone: Urology Comment on above: Prostate cancer (HCC ) (Primary Dx) Start: 07-27-2023 End: 07-27-2023 ambulatory Josi CAPONE Facility:[facility] [place] Start: 07-27-2023 End: 07-27-2023 Patient encounter procedure Josi CAPONE [facility] Start: 07-14-2023 End: 07-14-2023 Admission to same day surgery center DO Sriram Brewster Work Phone: [facility] [place] Start: 07-14-2023 End: 07-14-2023 ambulatory DO Sriram Brewster Work Phone: [facility] Work Phone: Start: 07-14-2023 End: 07-14-2023 ambulatory Josi CAPONE Facility:CD:[id number] Start: 06-30-2023 End: 06-30-2023 Patient encounter procedure DO Sriram Brewster Work Phone: [facility] Work Phone: Start: 06-30-2023 End: 06-30-2023 ambulatory DO Sriram Brewster Work Phone: [facility] Work Phone: Start: 06-30-2023 Encounter for preprocedural laboratory examination Josi Capone [facility] Start: 05-23-2023 End: 05-23-2023 Patient encounter procedure DO Sriram Brewster Work Phone: [facility] [place] Work Phone: Start: 05-23-2023 End: 05-23-2023 ambulatory Sriram Brewster Facility:[facility] Start: 05-17-2023 End: 05-17-2023 ambulatory SRIRAM BREWSTER Not Available Start: 05-09-2023 Telephone encounter Mee Karissa [facility] Comment on above: Results Start: 05-08-2023 End: 05-08-2023 Office outpatient visit 25 minutes Rose Thorne DO Work Phone: [facility] Comment on above: Vitamin B12 deficien cy (Primary Dx); 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); Anemia, unspecified type; Memory loss Start: 05-08-2023 End: 05-08-2023 ambulatory ROSE THORNE Not Available Start: 04-21-2023 End: 04-21-2023 ambulatory Ines Pisano Facility:[facility] [place] Start: 04-21-2023 End: 04-21-2023 Patient encounter procedure Ines Pisano [facility] [place] Start: 02-14-2023 ambulatory Ines Pisano Facility:[facility] [place] Start: 02-09-2023 Patient encounter procedure Rose Thorne DO Work Phone: [facility] Work Phone: Start: 02-09-2023 End: 02-09-2023 ambulatory SRIRAM BREWSTER Not Available Procedures Date Procedure Procedure Detail Performing Clinician Start: 10-12-2023 Blood count complete auto&auto difrntl wbc G Edison Ramos MD Work Phone: Start: 08-16-[address] atten uation skull base mid-thigh Irina Cabezas MD Work Phone: Start: 08-11-2023 Urnls dip stick/tabl et rgnt auto w/o microscopy Bulk Order Provider Start: 08-04-2023 Lipid 1996 panel - S lana or Plasma Irina Cabezas MD Work Phone: Start: 07-14-2023 OR (TRUS) Prostate B iopsy w/Ultrasound (Not Applicable) DO Sriram Brewster Work Phone: Start: 05-23-2023 MR prostate wo/w con DO Sriram Brewster Work Phone: Start: 05-08-2023 Hemoglobin glycosyla rafaela a1c Rose Thorne DO Work Phone: Start: 01-03-2019 Colonoscopy Rose montoya DO Work Phone: Colonoscopy Ines Pisano Plan of Treatment Date Care Activity Detail Author Start: 01-03-2029 Screening for malign ant neoplasm of colon [facility] Start: 2028 Lipid panel Lipid Screening [facility] Start: 2026 Diabetes Screening Diabetes Screenin [facility] Start: 02-10-2024 Medicare Annual Wellness (AWV) Medicare Annual Wellness (AWV) [facility] Start: 01-24-2024 End: 01-24-2024 Patient encounter procedure 01/24/2024 9:45 AM EDT Office Visit Radiation Oncology [address] [place] [address] Verónica Ramos MD [address] [place] [address] followup Radiation Oncology Comment on above: followup Start: 01-19-2024 Glaucoma screening Diabetes: R etinopathy Screening [facility] Start: 01-10-2024 End: 01-10-2024 Patient encounter procedure 01/10/2024 8:00 AM EDT Appointment Radiology Pet [facility] [address] [place] [address] Comment on above: Post seed Start: 12-26-2023 End: 12-26-2023 Patient encounter procedure 12/26/2023 2:15 PM EDT Office Visit Radiation Oncology [address] [place] [address] Verónica Ramos MD [address] [facility] [place] [address] Followup Radiation Oncology Comment on above: Followup Start: 12-13-2023 End: 12-13-2023 Patient encounter procedure 12/13/2023 12:30 PM EDT Office Visit Radiation Oncology [address] [place] [address] Verónica Ramos MD [address] [facility] [place] [address] Implant at [facility] Radiation Oncology Comment on above: Implant at [facility] Start: 11-30-2023 End: 11-30-2023 Patient encounter procedure 11/30/2023 8:30 AM EDT Office Visit Radiation Oncology [address] [facility] [place] [address] Verónica Ramos MD [address] [facility] [place] [address] Volume study Radiation Oncology Comment on above: Volume study Start: 11-26-2023 Covid-19 Vaccine ( season) Covid-19 Vaccine ( season) [facility] Start: 11-26-2023 Influenza vaccination Influenza Vacc ine (#1) [facility] Start: 11-07-2023 End: 11-07-2023 Patient encounter procedure 11/07/2023 10:15 AM EDT Appointment Radiation Oncology [address] [place] [address] prostate Radiation Oncology Comment on above: prostate Start: 11-06-2023 End: 11-06-2023 Patient encounter procedure Radiation Oncology Comment on above: prostate [facility]: [facility] Start: 11-06-2023 End: 11-06-2023 Admission to same day surgery center 11/06/2023 7:30 AM EDT - 11/06/2023 1:19 PM EDT Surgery Admitting [address] [place] [address] Irina Cabezas MD [address] [facility] [address] [place] [address] ROBOTIC LAPAROSCOPIC RETROPUBIC RADICAL PROSTATECTOMY W/ NERVE SPARING Admitting Comment on above: ROBOTIC LAPAROSCOPIC RETROPUBIC RADICAL PROSTATECTOMY W/ NERVE SPARING Start: 11-06-2023 End: 11-06-2023 Laps prostect retropubic rad w/nrv sparing robot ROBOTIC LAPAROSCOPIC RETROPUBIC RADICAL PROSTATECTOMY W/ NERVE SPARING Malignant neoplasm of prostate (HCC) 11/06/2023 7:30 AM EDT [facility] Start: 11-06-2023 Subsequent hospital visit by physician 11/06/2023 7:30 AM EDT Hospital Encounter Admitting [address] [place] [address] Irina Cabezas MD [address] [facility] [address] [place] [address] Malignant neoplasm of prostate (HCC) [C61] Admitting Comment on above: Malignant neoplasm o f prostate (HCC) [C61] Start: 11-03-2023 End: 02-02-2024 aPTT in Platelet poor plasma by Coagulation assay ACTIVATED PARTIAL THROMBOPLASTIN TIME Lab Routine Malignant neoplasm of prostate (HCC) Neoplasm of unspecified behavior of unspecified site Expected: 11/03/2023, Expires: 02/02/2024 [facility] Comment on above: Expected: 11/03/2023 , Expires: 02/02/2024 Start: 11-03-2023 End: 02-02-2024 Comprehensive metabolic 2000 panel - Serum or Plasma COMPREHENSIVE METABOLIC PANEL Lab Routine Malignant neoplasm of prostate (HCC) Expected: 11/03/2023, Expires: 02/02/2024 [facility] Comment on above: Expected: 11/03/2023 , Expires: 02/02/2024 Start: 11-03-2023 End: 02-02-2024 PT panel - Platelet poor plasma by Coagulation assay PROTHROMBIN TIME Lab Routine Malignant neoplasm of prostate (HCC) Neoplasm of unspecified behavior of unspecified site Expected: 11/03/2023, Expires: 02/02/2024 [facility] Comment on above: Expected: 11/03/2023 , Expires: 02/02/2024 Start: 11-03-2023 End: 11-03-2023 Patient encounter procedure 11/03/2023 10:15 AM EDT Appointment Radiation Oncology [address] [place] [address] prostate Radiation Oncology Comment on above: prostate Start: 11-02-2023 End: 11-02-2023 Patient encounter procedure 11/02/2023 10:15 AM EDT Appointment Radiation Oncology [address] [place] [address] prostate Radiation Oncology Comment on above: prostate Start: 11-01-2023 End: 11-01-2023 Patient encounter procedure 11/01/2023 10:15 AM EDT Appointment Radiation Oncology [address] [place] [address] prostate Radiation Oncology Comment on above: prostate Start: 10-31-2023 End: 10-31-2023 Patient encounter procedure 10/31/2023 10:15 AM EDT Appointment Radiation Oncology [address] [place] [address] prostate Radiation Oncology Comment on above: prostate Start: 10-30-2023 End: 10-30-2023 Patient encounter procedure Radiation Oncology Comment on above: prostate [facility]: [facility] Start: 10-27-2023 End: 01-26-2024 CBC panel - Blood by Automated count COMPLETE BLOOD COUNT Lab Routine Malignant neoplasm of prostate (HCC) Expected: 10/27/2023, Expires: 01/26/2024 [facility] Work Phone: Comment on above: Expected: 10/27/2023 , Expires: 01/26/2024 Start: 10-27-2023 End: 10-27-2023 Patient encounter procedure 10/27/2023 10:15 AM EDT Appointment Radiation Oncology [address] [place] [address] prostate Radiation Oncology Comment on above: prostate Start: 10-26-2023 End: 10-26-2023 Patient encounter procedure 10/26/2023 10:15 AM EDT Appointment Radiation Oncology [address] [place] [address] prostate Radiation Oncology Comment on above: prostate Start: 10-25-2023 End: 10-25-2023 Patient encounter procedure 10/25/2023 10:15 AM EDT Appointment Radiation Oncology [address] [place] [address] prostate Radiation Oncology Comment on above: prostate Start: 10-24-2023 End: 10-24-2023 Anesthesia consultation 10/24/2023 1:40 PM EDT PAT Pre Anesthesia [address] [place] [address] 1, Pacc Wheeler [address] [place] [address] pre op-pacc Pre Anesthesia Comment on above: pre op-pacc Start: 10-24-2023 End: 10-24-2023 ambulatory 10/24/2023 12:45 PM EDT Results Only [facility] [address] [place] [address] labs, and EKG [facility] Comment on above: labs, and EKG Start: 10-24-2023 End: 10-24-2023 Patient encounter procedure 10/24/2023 10:15 AM EDT Appointment Radiation Oncology [address] [place] [address] prostate Radiation Oncology Comment on above: prostate Start: 10-23-2023 End: 10-23-2023 Patient encounter procedure Radiation Oncology Comment on above: prostate Location: [facility] Start: 10-20-2023 End: 10-20-2023 Patient encounter procedure 10/20/2023 10:15 AM EDT Appointment Radiation Oncology [address] [place] [address] prostate Radiation Oncology Comment on above: prostate Start: 10-19-2023 End: 10-19-2023 Patient encounter procedure 10/19/2023 9:30 AM EDT Appointment Radiation Oncology [address] [place] [address] prostate Radiation Oncology Comment on above: prostate Start: 10-18-2023 End: 10-18-2023 Patient encounter procedure 10/18/2023 9:30 AM EDT Appointment Radiation Oncology [address] [place] [address] prostate Radiation Oncology Comment on above: prostate Start: 10-17-2023 End: 01-16-2024 CBC W Auto Differential panel - Blood COMPLETE BLOOD COUNT AND DIFFERENTIAL Lab Routine Prostate cancer (HCC) Expected: 10/17/2023, Expires: 01/16/2024 [facility] Work Phone: Comment on above: Expected: 10/17/2023 , Expires: 01/16/2024 Start: 10-17-2023 End: 10-17-2023 ambulatory 10/17/2023 11:00 AM EDT Results Only [facility] [address] [place] [address] [facility] Start: 10-17-2023 End: 10-17-2023 Patient encounter procedure 10/17/2023 10:15 AM EDT Appointment Radiation Oncology [address] [place] [address] prostate Radiation Oncology Comment on above: prostate Start: 10-16-2023 End: 10-16-2023 Patient encounter procedure Radiation Oncology Comment on above: prostate Location: [facility] Start: 10-13-2023 End: 10-13-2023 Patient encounter procedure 10/13/2023 10:15 AM EDT Appointment Radiation Oncology [address] [place] [address] prostate Radiation Oncology Comment on above: prostate Start: 10-12-2023 End: 10-12-2023 Patient encounter procedure 10/12/2023 10:15 AM EDT Appointment Radiation Oncology [address] [place] [address] prostate Radiation Oncology Comment on above: prostate Start: 10-11-2023 End: 10-11-2023 Patient encounter procedure 10/11/2023 11:00 AM EDT Appointment Radiation Oncology [address] [place] [address] prostate Radiation Oncology Comment on above: prostate Start: 10-10-2023 End: 10-10-2023 Patient encounter procedure 10/10/2023 10:15 AM EDT Appointment Radiation Oncology [address] [facility] [place] [address] prostate Radiation Oncology Comment on above: prostate Start: 10-09-2023 End: 10-09-2023 Patient encounter procedure Financial Clearance Phone Screening Comment on above: pre op prostate Location: [facility] Start: 10-06-2023 End: 10-06-2023 Patient encounter procedure 10/06/2023 10:15 AM EDT Appointment Radiation Oncology [address] [facility] [place] [address] prostate Radiation Oncology Comment on above: prostate Start: 10-05-2023 End: 10-05-2023 Patient encounter procedure Radiation Oncology Comment on above: prostate prostate - DO 1ST DA Y SHIFTS \T\ SREEKANTH RED ISO Start: 10-04-2023 End: 10-04-2023 Patient encounter procedure Radiation Oncology Comment on above: NEW START PROSTATE NEW START PROSTATE - WOULD LIKE AROUND 10 Start: 09-20-2023 End: 09-20-2023 Patient encounter procedure Radiation Oncology Comment on above: Merary treating pelvis dr dashawn richey treating pelvis eng Start: 08-24-2023 End: 08-24-2023 ambulatory 08/24/2023 11:00 AM EDT Results Only [facility] [address] [place] [address] [facility] Start: 08-22-2023 Patient referral [facility] Work Phone: Start: 08-16-2023 End: 11-15-2023 CONFIRM BLOOD TYPE CONFIRM BLOOD TYPE Blood Bank Routine Malignant neoplasm of prostate (HCC) Expected: 08/16/2023 (Approximate), Expires: 11/15/2023 [facility] Comment on above: Expected: 08/16/2023 (Approximate), Expires: 11/15/2023 Start: 08-16-2023 End: 11-15-2023 TYPE AND SCREEN,30 DAY TYPE AND SCREEN,30 DAY Blood Bank Routine Malignant neoplasm of prostate (HCC) Expected: 08/16/2023 (Approximate), Expires: 11/15/2023 [facility] Comment on above: Expected: 08/16/2023 (Approximate), Expires: 11/15/2023 Start: 08-16-2023 End: 08-16-2023 Patient encounter procedure 08/16/2023 10:00 AM EDT Office Visit Radiation Oncology [address] [place] [address] Danisha Zendejas MD [address] [place] [address] CONSULT Prostate Ca Josi Capone Radiation Oncology Comment on above: CONSULT Prostate Ca Josi Capone Start: 08-11-2023 End: 08-11-2023 Patient encounter procedure 08/11/2023 8:00 AM EDT Office Visit [facility] [address] [place] [id number] Sriram Brewster, DO [address] [place] [address] [facility] Start: 08-07-2023 End: 08-07-2023 Patient encounter procedure 08/07/2023 9:30 AM EDT Office Visit [facility] [address] [place] [address] Rose Thorne, DO [address] [place] [address] [facility] [address] Start: 08-06-2023 Hemoglobin A1c measurement Diabetes: Hemoglobin A1C [facility] Start: 08-02-2023 Urine screening for protein Diabetes: Urine Protein Screening [facility] Start: 07-14-2023 [facility] Start: 05-08-2023 End: 05-08-2024 Cobalamin (Vitamin B12) [Mass/volume] in Serum or Plasma Vitamin B12 Lab Routine Vitamin B12 deficiency Memory loss Expected: 05/08/2023 (Approximate), Expires: 05/08/2024 [facility] Work Phone: Comment on above: Expected: 05/08/2023 (Approximate), Expires: 05/08/2024 Start: 05-08-2023 End: 05-08-2024 Thyrotropin [Units/volume] in Serum or Plasma TSH Lab Routine Memory loss Expected: 05/08/2023 (Approximate), Expires: 05/08/2024 [facility] Comment on above: Expected: 05/08/2023 (Approximate), Expires: 05/08/2024 Start: 03-27-2023 Advance Directive Discussion Advance Directive Discussion [facility] Start: 03-27-2023 Behavioral Health Screening Behavioral Health Screening [facility] Start: 11-25-2022 Covid-19 Vaccine () Covid-19 Vaccine () [facility] Start: 01-04-2020 Screening for malign ant neoplasm of colon [facility] Start: 2011 RSV Vaccine (1 - 1-d ose 60+ series) RSV Vaccine (1 - 1-dose 60+ series) [facility] Start: 08-02-2001 Shingrix Vaccine (1 of 2) Shingrix Vaccine (1 of 2) [facility] Start: 08-02-1996 Screening for malign ant neoplasm of colon [facility] Start: 08-02-1970 Urine microalbumin profile DTaP,Tdap,Td Vaccine (1 - Tdap) [facility] Start: 08-02-1969 Anxiety Screening Anxiety Screening [facility] Start: 08-02-1969 [facility] Start: 08-[facility]1969 Hepatitis C screening Hepatitis C [facility] Start: 1951 Screening for malign ant neoplasm of colon [facility] Computed tomography for radiotherapy planning [facility] CT Guidance for radiation treatment of Unspecified body region CT SIM PLANNING RADIATION ONCOLOGY Radiology Routine Prostate cancer (HCC) Ordered: 09/29/2023 [facility] Work Phone: Comment on above: Ordered: 09/29/2023 End: 08-15-2024 ECG COMPLETE ECG COMPLETE ECG Routine Malignant neoplasm of prostate (HCC) 1 Occurrences starting 08/16/2023 until 08/15/2024 [facility] Comment on above: 1 Occurrences starti ng 08/16/2023 until 08/15/[address]24 Patient [address] [facility] Work Phone: [facility] Immunizations Immunization Date Immunization Notes Care Provider Prashant matthews 01-25-2023 influenza virus vacc ine, unspecified formulation Ines Lue [facility] 01-25-2023 Influenza, Seasonal, Quadrivalent, Adjuvanted Rose Petznick DO Work Phone: [facility] 12-21-2021 influenza virus vacc ine, unspecified formulation Ines Lue [facility] 12-21-2021 influenza, high dose seasonal, preservative-free Rose Petznick DO Work Phone: [facility] 02-09-2021 influenza virus vacc ine, unspecified formulation Ines Lue [facility] 02-09-2021 influenza, injectabl e, quadrivalent, contains preservative Rose Petznick DO Work Phone: [facility] 02-03-2021 SARS-CoV-2 (COVID-19 ) mRNA BNT-162b2 vax Ines Lue [facility] Comment on above: Result Comment: 2023: [id number] 06-12-2020 SARS-CoV-2 (COVID-19 ) mRNA BNT-162b2 vax Ines Lue [facility] Comment on above: Result Comment: 2023: [id number] 05-22-2020 SARS-CoV-2 (COVID-19 ) mRNA BNT-162b2 vax Ines Lue [facility] Comment on above: Result Comment: 2023: [id number] 02-11-2020 influenza virus vacc ine, unspecified formulation Ines Lue [facility] 02-11-2020 Seasonal trivalent influenza vaccine, adjuvanted, preservative free Rose Petznick DO Work Phone: [facility] 12-04-2018 influenza virus vacc ine, unspecified formulation Ines Lue [facility] 12-04-2018 Seasonal trivalent influenza vaccine, adjuvanted, preservative free Rose Petznick DO Work Phone: [facility] 07-31-2018 pneumococcal polysaccharide vaccine, 23 valent Ines Lue [facility] 01-17-2017 pneumococcal conjuga te vaccine, 13 valent Ines Lue [facility] 01-18-2016 influenza virus vacc ine, unspecified formulation Ines Lue [facility] 01-18-2016 influenza, injectabl e, quadrivalent, contains preservative Rose Petznick DO Work Phone: [facility] 01-01-2015 seasonal influenza, intradermal, preservative free Rose Petznick DO Work Phone: [facility] Payers Date Payer Category Payer Self-pay [id number] 2023 Private Health Insurance [facility] AARP SUPPLEMENT [id number] 2023-Present [phone] [address] [place] [address] Indemnity [id number] 2022 Unknown AARP AARP [id number] 2022-Present [address] [place] [address] [id number] 2022 Unknown [id number] 2016 Medicare [id number] 2016 Medicare [id number] 1950 Unknown [id number] 2.16.840.1.697317.3.579.2. 1950 Unknown [id number] 2.16.840.1.092454.3.579.2. 72 1950 Unknown [id number] 2.16.840.1.487717.3.579.2. 1950 Unknown [id number] 2.16.840.1.689371.3.579.2. 1950 Unknown [id number] 2.16.840.1.845099.3.579.2. 727 1950 Unknown [id number] 2.16.840.1.004176.3.579.2. 1950 Unknown [id number] 2.16.840.1.440593.3.579.2. 9 1950 Unknown [id number] 2.16.840.1.516026.3.579.2. 1258 1950 Unknown [id number] 2.16.840.1.294579.3.579.2. 1259 1950 Unknown [id number] 2.16.840.1.370217.3.579.2. 1258 1950 Unknown [id number] 2.16.840.1.304743.3.579.2. 1259 Unknown [facility] [id number] Unknown [id number] Unknown [id number] 2.16.840.1.817435.3.579.2. 531 Unknown [id number] 2.16.840.1.502675.3.579.2. 531 Unknown [id number] 2.16.840.1.309178.3.579.2. 531 Unknown [id number] 2.16.840.1.830227.3.579.2. 531 Social History Date Type Detail Facility Start: 04-21-2023 End: 10-04-2023 Tobacco smoking status Never smoked tobacco (finding) [facility] Tobacco smoking status Never [facility] Start: 05-01-2023 End: 08-11-2023 Sex Assigned At Male [facility] Start: 12-07-2022 End: 10-04-2023 Tobacco use and exposure Smokeless tobacco non-user [facility] Start: 05-08-2023 Alcohol intake Current drinke r of alcohol (finding) [facility] Start: 05-08-2023 End: 08-11-2023 Alcohol intake [facility] Within the last year , have you been afraid of your partner or ex-partner? No [facility] Are you now , , , , never or living with a partner? [facility] How often to you hav e a drink containing alcohol? 2-4 times a month [facility] How many standard drinks containing alcohol do you have on a typical day? 1 or 2 [facility] How often do you hav e 6 or more drinks on 1 occasion? Never [facility] How hard is it for y ou to pay for the very basics like food, housing, medical care, and heating Not very hard [facility] Do you feel stress - tense, restless, nervous, or anxious, or unable to sleep at night because your mind is troubled all the time - these days [OSQ] Only a little [facility] (I/We) worried wheth er (my/our) food would run out before (I/we) got money to buy more. Never true [facility] Start: 12-07-2022 Alcohol Comment Monthly or less [facility] Start: 1950 [facility] Start: 06-08-2022 Gender identity Identifies as male gender (finding) [facility] Start: 12-01-2022 Sexual orientation Choose not to dis close [facility] Tobacco smoking stat us NHIS Tobacco smoking consumption unknown [facility] Start: 1950 Sex Assigned At Not on file [facility] Start: 10-04-2023 End: 10-30-2023 Alcohol intake Ex-drinker (finding) [facility] Start: 10-04-2023 Alcohol Comment rarely [facility] Goals Date Patient Goal Desired Activity /State Functional Status Date Assessment Result Facility 09-08-2023 Functional Status N/A [facility] 07-27-2023 Functional Status N/A [facility] 04-21-2023 Functional Status N/A [facility] Clinical Notes 04-21-2023 to 12-04-2023 Verónica Ramos MD - 12/04/2023 12:00 AM Verónica Dejesus MD - 11/30/2023 8:49 AM Verónica Dejesus MD - 11/30/2023 12:00 AM Verónica Dejesus MD - 11/07/2023 12:00 AM EDT Note Date & Type Note Facility 12-04-2023 History of Presen t illness Narrative YINA BOYER [id number] 12/04/2023 [facility] Department of Radiation Oncology [facility] RADIATION ONCOLOGY BRACHYTHERAPY TREATMENT PLANNING NOTE For reasons stated in the consult note, YINA BOYER is a candidate for definitive radiation. Based on review and interpretation of the relevant diagnostic studies together with the exam findings, YINA BOYER was simulated on 11/30/2023 and the target volume to be treated as well as the critical normal structure(s) were delineated as indicated in the simulation note. I personally reviewed the TRUS and was able to create contours of the volume to be treated and the normal critical structures to be spared. In this particular case, the rectum was deemed to be a critical structure. Special consideration of this was given in light of the potential for increased toxicity if the rectum receives too much radiation dose. After participating in the treatment planning process with medical physics, I approved the best plan to deliver my prescribed course of radiation. The target tissue was planned using pre-planning to allow for the best isodose distribution to deliver a minimum dose of 100 Gy to the prostate. The dose to normal tissue (rectum) and target tissue was confirmed upon review of the calculated dose superimposed on the TRUS images containing the target tissue and the rectum. A completed summary of this plan dated 12/04/2023 incorporated herein by reference includes dose, energy, isodose distribution and DVH. Electronically Signed Edison Ramos M.D. / JOSE 43:48 PM documented in this encounter [facility] 12-04-2023 Note HNO ID: [id number] Author: Verónica RAMOS MD Service: ? Author Type: Physician Type: Progress Notes Filed: 12/06/2023 15:48 Note Text: YINA BOYER [id number] 12/04/2023 [facility] Department of Radiation Oncology [facility] RADIATION ONCOLOGY BRACHYTHERAPY TREATMENT PLANNING NOTE For reasons stated in the consult note, YINA BOYER is a candidate for definitive radiation. Based on review and interpretation of the relevant diagnostic studies together with the exam findings, YINA BOYER was simulated on 11/30/2023 and the target volume to be treated as well as the critical normal structure(s) were delineated as indicated in the simulation note. I personally reviewed the TRUS and was able to create contours of the volume to be treated and the normal critical structures to be spared. In this particular case, the rectum was deemed to be a critical structure. Special consideration of this was given in light of the potential for increased toxicity if the rectum receives too much radiation dose. After participating in the treatment planning process with medical physics, I approved the best plan to deliver my prescribed course of radiation. The target tissue was planned using pre-planning to allow for the best isodose distribution to deliver a minimum dose of 100 Gy to the prostate. The dose to normal tissue (rectum) and target tissue was confirmed upon review of the calculated dose superimposed on the TRUS images containing the target tissue and the rectum. A completed summary of this plan dated 12/04/2023 incorporated herein by reference includes dose, energy, isodose distribution and DVH. Electronically Signed Edison Ramos M.D. / JOSE 43:48 PM [facility] 11-30-2023 Note HNO ID: [id number] Author: Verónica RAMOS MD Service: ? Author Type: Physician Type: Progress Notes Filed: 11/30/2023 09:00 Note Text: UNIVERSAL PROTOCOL / SAFETY CHECKLIST Procedure to be Performed: Prostate volume study Sign In: A Moment of CARE was completed. Personnel directly involved with the procedure wore the appropriate PPE (Personal Protective Equipment). Patient/Surrogate Stated/Verified: PATIENT VERIFIED(optional for EMERGENT procedures): Patient name, Date of , Relevant allergies, and The intended procedure Time Out Communication: Intended patient and procedure match the source documents. Consent documented and matches the intended procedure. Sign Out: SIGN OUT (optional for EMERGENT procedures): No specimen collected. All instruments, equipment, possible retained foreign bodies accounted for. Verónica Ramos MD [facility] 11-30-2023 History of Presen t illness Narrative UNIVERSAL PROTOCOL / SAFETY CHECKLIST Procedure to be Performed: Prostate volume study Sign In: A Moment of CARE was completed. Personnel directly involved with the procedure wore the appropriate PPE (Personal Protective Equipment). Patient/Surrogate Stated/Verified: PATIENT VERIFIED(optional for EMERGENT procedures): Patient name, Date of , Relevant allergies, and The intended procedure Time Out Communication: Intended patient and procedure match the source documents. Consent documented and matches the intended procedure. Sign Out: SIGN OUT (optional for EMERGENT procedures): No specimen collected. All instruments, equipment, possible retained foreign bodies accounted for. Verónica Ramos MD documented in this encounter [facility] 11-30-2023 History of Presen t illness Narrative YINA BOYER [id number] 11/30/2023 [facility] Department of Radiation Oncology [facility] RADIATION ONCOLOGY SIMULATION NOTE DATE OF SIMULATION: 11/30/2023 MACHINE: [employer] Focus 500 Diagnosis: 185 (Prostate Gland) AREA:Prostate PATIENT POSITION: Supine CONTRAST: None PROTOCOL: None CONCURRENT THERAPY: None FIXATION DEVICE: UTS Stabilization device by Nucletron. PROCEDURE: Patient was simulated in exaggerated dorsal lithotomy position. Serial images of the prostate were acquired using TRUS and reconstructed in 3D space. These images were imported into [employer] Prostate planning system where a plan was generated. ASSESSMENT/PLAN: Patient tolerated simulation procedure well. Electronically Signed Edison Ramos M.D. / RICHARD 41:11 PM documented in this encounter [facility] 11-30-2023 Note HNO ID: [id number] Author: Verónica RAMOS MD Service: ? Author Type: Physician Type: Progress Notes Filed: 12/01/2023 13:11 Note Text: YINA BOYER [id number] 11/30/2023 [facility] Department of Radiation Oncology [facility] RADIATION ONCOLOGY SIMULATION NOTE DATE OF SIMULATION: 11/30/2023 MACHINE: [employer] Flex Focus 500 Diagnosis: 185 (Prostate Gland) AREA:Prostate PATIENT POSITION: Supine CONTRAST: None PROTOCOL: None CONCURRENT THERAPY: None FIXATION DEVICE: UTS Stabilization device by Nucletron. PROCEDURE: Patient was simulated in exaggerated dorsal lithotomy position. Serial images of the prostate were acquired using TRUS and reconstructed in 3D space. These images were imported into [employer] Prostate planning system where a plan was generated. ASSESSMENT/PLAN: Patient tolerated simulation procedure well. Electronically Signed Edison Ramos M.D. 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 Prostate cancer (C61), 2019 NCCN Risk Group: High Risk Group AREA TREATED: Pelvis/prostate DELIVERED DOSE: Area: Pelvis/prostate 4500 cGy in 25 fractions, 3 Arcs, IMRT, 10 MV with daily CBCT TOTAL: 4500cGy in 25 fractions ELAPSED TIME: 34 days. CLINICAL SUMMARY: The patient tolerated radiation with good tolerance. He is scheduled for volume study on 11/30/2023 and prostate brachytherapy boost on 12/13/23. Staff Physician Edison Ramos M.D. / WST 43:01 PM Electronically Signed cc: Dr. Deborah Pisano documented in this encounter [facility] 11-07-2023 Note HNO ID: [id number] Author: Verónica RAMOS MD Service: ? 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 Prostate cancer (C61), 2019 NCCN Risk Group: High Risk Group AREA TREATED: Pelvis/prostate DELIVERED DOSE: Area: Pelvis/prostate 4500 cGy in 25 fractions, 3 Arcs, IMRT, 10 MV with daily CBCT TOTAL: 4500cGy in 25 fractions ELAPSED TIME: 34 days. CLINICAL SUMMARY: The patient tolerated radiation with good tolerance. He is scheduled for volume study on 11/30/2023 and prostate brachytherapy boost on 12/13/23. Staff Physician Edison Ramos M.D. / GUMARO 43:01 PM Electronically Signed cc: Dr. Deborah Pisano [facility] 11-06-2023 Note HNO ID: [id number] Author: Verónica RAMOS MD Service: ? Author Type: Physician Type: Progress Notes Filed: 11/06/2023 10:58 Note Text: Radiation Oncology - On Treatment Review (OTR) Note PATIENT NAME: Yina Boyer PATIENT DIAGNOSIS: Prostate adenocarcinoma, initial PSA 6.2, biopsy Darlin score 4 + 4 = 8 (grade group 4), clinical stage T2a, N0, M0, stage IIC [T1-T2, N0, M0, PSA <20, GG 4] (AJCC 8th ed.), s/p TRUS Random and MR Targeted biopsy. Prostate cancer (C61), 2019 NCCN Risk Group: High Risk Group COURSE: definitive Current dose: 4320 cGy in 24 fx Planned dose: 4500 cGy in 25 fx SUBJECTIVE: Doing well. PHYSICAL EXAM: 11/06/23 1047 BP: 132/86 Pulse: 64 Resp: 18 Temp: 36.3 ?C (97.4 ?F) SpO2: 97% Weight: 105.4 kg (232 lb 5.8 oz) KPS: 100 General Appearance: Alert and oriented. No acute distress. IMAGING/LAB RESULTS: WBC (k/uL) Date Value 10/12/2023 4.66 RBC (m/uL) Date Value 10/12/2023 5.17 Hemoglobin (g/dL) Date Value 10/12/2023 14.7 Hematocrit (%) Date Value 10/12/2023 43.0 MCV (fL) Date Value 10/12/2023 83.2 MCH (pg) Date Value 10/12/2023 28.4 MCHC (g/dL) Date Value 10/12/2023 34.2 RDW-CV (%) Date Value 10/12/2023 13.8 Platelet Count (k/uL) Date Value 10/12/2023 175 MPV (fL) Date Value 10/12/2023 10.1 TOXICITY ASSESSMENT (CTC v4.0): Fatigue:grade 1 Radiation Dermatitis: grade 0 - No symptoms Diarrhea:grade 1 Proctitis: grade 0 - No symptoms Urinary frequency: grade 1 Dysuria: grade 0 - No symptoms Urinary incontinence: grade 0 (No symptoms) Urinary retention: grade 0 - No symptoms Treatment chart checked: Yes Patient treatment site reviewed and verified:Yes Port films reviewed and current:Yes Medications started: None ASSESSMENT/PLAN: Patient doing well. Patient will finish tomorrow. Has follow-up scheduled for brachytherapy volume study and brachytherapy implant. Verónica Ramos MD [facility] 11-06-2023 History of Presen t illness Narrative Radiation Oncology - On Treatment Review (OTR) Note PATIENT NAME: Yina Boyer PATIENT DIAGNOSIS: Prostate adenocarcinoma, initial PSA 6.2, biopsy Darlin score 4 + 4 = 8 (grade group 4), clinical stage T2a, N0, M0, stage IIC [T1-T2, N0, M0, PSA <20, GG 4] (AJCC 8th ed.), s/p TRUS Random and MR Targeted biopsy. Prostate cancer (C61), 2019 NCCN Risk Group: High Risk Group COURSE: definitive Current dose: 4320 cGy in 24 fx Planned dose: 4500 cGy in 25 fx SUBJECTIVE: Doing well. PHYSICAL EXAM: 11/06/23 1047 BP: 132/86 Pulse: 64 Resp: 18 Temp: 36.3 C (97.4 F) SpO2: 97% Weight: 105.4 kg (232 lb 5.8 oz) KPS: 100 General Appearance: Alert and oriented. No acute distress. IMAGING/LAB RESULTS: WBC (k/uL) Date Value 10/12/2023 4.66 RBC (m/uL) Date Value 10/12/2023 5.17 Hemoglobin (g/dL) Date Value 10/12/2023 14.7 Hematocrit (%) Date Value 10/12/2023 43.0 MCV (fL) Date Value 10/12/2023 83.2 MCH (pg) Date Value 10/12/2023 28.4 MCHC (g/dL) Date Value 10/12/2023 34.2 RDW-CV (%) Date Value 10/12/2023 13.8 Platelet Count (k/uL) Date Value 10/12/2023 175 MPV (fL) Date Value 10/12/2023 10.1 TOXICITY ASSESSMENT (CTC v4.0): Fatigue:grade 1 Radiation Dermatitis: grade 0 - No symptoms Diarrhea:grade 1 Proctitis: grade 0 - No symptoms Urinary frequency: grade 1 Dysuria: grade 0 - No symptoms Urinary incontinence: grade 0 (No symptoms) Urinary retention: grade 0 - No symptoms Treatment chart checked: Yes Patient treatment site reviewed and verified:Yes Port films reviewed and current:Yes Medications started: None ASSESSMENT/PLAN: Patient doing well. Patient will finish tomorrow. Has follow-up scheduled for brachytherapy volume study and brachytherapy implant. Verónica Ramos MD documented in this encounter [facility] 10-30-2023 Note HNO ID: [id number] Author: Verónica RAMOS MD Service: ? Author Type: Physician Type: Progress Notes Filed: 10/30/2023 10:52 Note Text: Radiation Oncology - On Treatment Review (OTR) Note PATIENT NAME: Yina Boyer PATIENT DIAGNOSIS: Prostate adenocarcinoma, initial PSA 6.2, biopsy Nunda score 4 + 4 = 8 (grade group 4), clinical stage T2a, N0, M0, stage IIC [T1-T2, N0, M0, PSA <20, GG 4] (AJCC 8th ed.), s/p TRUS Random and MR Targeted biopsy. Prostate cancer (C61), 2019 NCCN Risk Group: High Risk Group COURSE: definitive Current dose: 3420 cGy in 19 fx Planned dose: 4500 cGy in 25 fx SUBJECTIVE: Doing well. Mild suprapubic discomfort. No other changes or problems. PHYSICAL EXAM: 10/30/23 1037 BP: 129/84 Pulse: (!) 57 Resp: 16 Temp: 36.4 ?C (97.6 ?F) SpO2: 97% Weight: 105.4 kg (232 lb 5.8 oz) KPS: 100 General Appearance: Alert and oriented. No acute distress. IMAGING/LAB RESULTS: WBC (k/uL) Date Value 10/12/2023 4.66 RBC (m/uL) Date Value 10/12/2023 5.17 Hemoglobin (g/dL) Date Value 10/12/2023 14.7 Hematocrit (%) Date Value 10/12/2023 43.0 MCV (fL) Date Value 10/12/2023 83.2 MCH (pg) Date Value 10/12/2023 28.4 MCHC (g/dL) Date Value 10/12/2023 34.2 RDW-CV (%) Date Value 10/12/2023 13.8 Platelet Count (k/uL) Date Value 10/12/2023 175 MPV (fL) Date Value 10/12/2023 10.1 TOXICITY ASSESSMENT (CTC v4.0): Fatigue:grade 1 Radiation Dermatitis: grade 0 - No symptoms Diarrhea:grade 1 Proctitis: grade 0 - No symptoms Urinary frequency: grade 1 Dysuria: grade 0 - No symptoms Urinary incontinence: grade 0 (No symptoms) Urinary retention: grade 0 - No symptoms Treatment chart checked: Yes Patient treatment site reviewed and verified:Yes Port films reviewed and current:Yes Medications started: None ASSESSMENT/PLAN: Patient doing well. Discussed brachytherapy component of treatment with patient and his . Chart and images reviewed. Continue radiation as outlined. 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 Prostate cancer (C61), 2019 NCCN Risk Group: High Risk Group COURSE: definitive Current dose: 3420 cGy in 19 fx Planned dose: 4500 cGy in 25 fx SUBJECTIVE: Doing well. Mild suprapubic discomfort. No other changes or problems. PHYSICAL EXAM: 10/30/23 1037 BP: 129/84 Pulse: (!) 57 Resp: 16 Temp: 36.4 C (97.6 F) SpO2: 97% Weight: 105.4 kg (232 lb 5.8 oz) KPS: 100 General Appearance: Alert and oriented. No acute distress. IMAGING/LAB RESULTS: WBC (k/uL) Date Value 10/12/2023 4.66 RBC (m/uL) Date Value 10/12/2023 5.17 Hemoglobin (g/dL) Date Value 10/12/2023 14.7 Hematocrit (%) Date Value 10/12/2023 43.0 MCV (fL) Date Value 10/12/2023 83.2 MCH (pg) Date Value 10/12/2023 28.4 MCHC (g/dL) Date Value 10/12/2023 34.2 RDW-CV (%) Date Value 10/12/2023 13.8 Platelet Count (k/uL) Date Value 10/12/2023 175 MPV (fL) Date Value 10/12/2023 10.1 TOXICITY ASSESSMENT (CTC v4.0): Fatigue:grade 1 Radiation Dermatitis: grade 0 - No symptoms Diarrhea:grade 1 Proctitis: grade 0 - No symptoms Urinary frequency: grade 1 Dysuria: grade 0 - No symptoms Urinary incontinence: grade 0 (No symptoms) Urinary retention: grade 0 - No symptoms Treatment chart checked: Yes Patient treatment site reviewed and verified:Yes Port films reviewed and current:Yes Medications started: None ASSESSMENT/PLAN: Patient doing well. Discussed brachytherapy component of treatment with patient and his . Chart and images reviewed. Continue radiation as outlined. Verónica Ramos MD documented in this encounter [facility] 10-23-2023 Note HNO ID: [id number] Author: Verónica RAMOS MD Service: ? Author Type: Physician Type: Progress Notes Filed: 10/23/2023 10:46 Note Text: Radiation Oncology - On Treatment Review (OTR) Note PATIENT NAME: Yina Boyer PATIENT DIAGNOSIS: Prostate adenocarcinoma, initial PSA 6.2, biopsy Nunda score 4 + 4 = 8 (grade group 4), clinical stage T2a, N0, M0, stage IIC [T1-T2, N0, M0, PSA <20, GG 4] (AJCC 8th ed.), s/p TRUS Random and MR Targeted biopsy. Prostate cancer (C61), 2019 NCCN Risk Group: High Risk Group COURSE: definitive Current dose: 2520 cGy in 14 fx Planned dose: 4500 cGy in 25 fx SUBJECTIVE: Doing well. Some issues with sleep and restless legs. Still very active. No significant bowel or bladder changes. PHYSICAL EXAM: 10/23/23 1030 BP: 128/85 Pulse: 66 Resp: 16 Temp: 36.3 ?C (97.4 ?F) SpO2: 98% Weight: 106 kg (233 lb 11 oz) KPS: 100 General Appearance: Alert and oriented. No acute distress. IMAGING/LAB RESULTS: WBC (k/uL) Date Value 10/12/2023 4.66 RBC (m/uL) Date Value 10/12/2023 5.17 Hemoglobin (g/dL) Date Value 10/12/2023 14.7 Hematocrit (%) Date Value 10/12/2023 43.0 MCV (fL) Date Value 10/12/2023 83.2 MCH (pg) Date Value 10/12/2023 28.4 MCHC (g/dL) Date Value 10/12/2023 34.2 RDW-CV (%) Date Value 10/12/2023 13.8 Platelet Count (k/uL) Date Value 10/12/2023 175 MPV (fL) Date Value 10/12/2023 10.1 TOXICITY ASSESSMENT (CTC v4.0): Fatigue:grade 1 Radiation Dermatitis: grade 0 - No symptoms Diarrhea:grade 1 Proctitis: grade 0 - No symptoms Urinary frequency: grade 1 Dysuria: grade 0 - No symptoms Urinary incontinence: grade 0 (No symptoms) Urinary retention: grade 0 - No symptoms Treatment chart checked: Yes Patient treatment site reviewed and verified:Yes Port films reviewed and current:Yes Medications started: None ASSESSMENT/PLAN: Patient doing well. Chart and images reviewed. Continue radiation as outlined. Verónica Ramos MD [facility] 10-23-2023 History of Presen t illness Narrative Radiation Oncology - On Treatment Review (OTR) Note PATIENT NAME: Yina Boyer PATIENT DIAGNOSIS: Prostate adenocarcinoma, initial PSA 6.2, biopsy Darlin score 4 + 4 = 8 (grade group 4), clinical stage T2a, N0, M0, stage IIC [T1-T2, N0, M0, PSA <20, GG 4] (AJCC 8th ed.), s/p TRUS Random and MR Targeted biopsy. Prostate cancer (C61), 2019 NCCN Risk Group: High Risk Group COURSE: definitive Current dose: 2520 cGy in 14 fx Planned dose: 4500 cGy in 25 fx SUBJECTIVE: Doing well. Some issues with sleep and restless legs. Still very active. No significant bowel or bladder changes. PHYSICAL EXAM: 10/23/23 1030 BP: 128/85 Pulse: 66 Resp: 16 Temp: 36.3 C (97.4 F) SpO2: 98% Weight: 106 kg (233 lb 11 oz) KPS: 100 General Appearance: Alert and oriented. No acute distress. IMAGING/LAB RESULTS: WBC (k/uL) Date Value 10/12/2023 4.66 RBC (m/uL) Date Value 10/12/2023 5.17 Hemoglobin (g/dL) Date Value 10/12/2023 14.7 Hematocrit (%) Date Value 10/12/2023 43.0 MCV (fL) Date Value 10/12/2023 83.2 MCH (pg) Date Value 10/12/2023 28.4 MCHC (g/dL) Date Value 10/12/2023 34.2 RDW-CV (%) Date Value 10/12/2023 13.8 Platelet Count (k/uL) Date Value 10/12/2023 175 MPV (fL) Date Value 10/12/2023 10.1 TOXICITY ASSESSMENT (CTC v4.0): Fatigue:grade 1 Radiation Dermatitis: grade 0 - No symptoms Diarrhea:grade 1 Proctitis: grade 0 - No symptoms Urinary frequency: grade 1 Dysuria: grade 0 - No symptoms Urinary incontinence: grade 0 (No symptoms) Urinary retention: grade 0 - No symptoms Treatment chart checked: Yes Patient treatment site reviewed and verified:Yes Port films reviewed and current:Yes Medications started: None ASSESSMENT/PLAN: Patient doing well. Chart and images reviewed. Continue radiation as outlined. Verónica Ramos MD documented in this encounter [facility] 10-16-2023 History of Presen t illness Narrative Radiation Oncology - On Treatment Review (OTR) Note PATIENT NAME: Yina Boyer PATIENT DIAGNOSIS: Prostate adenocarcinoma, initial PSA 6.2, biopsy Darlin score 4 + 4 = 8 (grade group 4), clinical stage T2a, N0, M0, stage IIC [T1-T2, N0, M0, PSA <20, GG 4] (AJCC 8th ed.), s/p TRUS Random and MR Targeted biopsy. Prostate cancer (C61), 2019 NCCN Risk Group: High Risk Group COURSE: definitive Current dose: 1620 cGy in 9 fx Planned dose: 4500 cGy in 25 fx SUBJECTIVE: Mild increase in stool frequency. Mild scrotal discomfort. No dysuria. No other new issues or problems. PHYSICAL EXAM: 10/16/23 1036 BP: 127/77 Pulse: 60 Resp: 18 Temp: 36 C (96.8 F) TempSrc: Temporal SpO2: 98% Weight: 105.4 kg (232 lb 5.8 oz) KPS: 100 General Appearance: Alert and oriented. No acute distress. IMAGING/LAB RESULTS: WBC (k/uL) Date Value 10/12/2023 4.66 RBC (m/uL) Date Value 10/12/2023 5.17 Hemoglobin (g/dL) Date Value 10/12/2023 14.7 Hematocrit (%) Date Value 10/12/2023 43.0 MCV (fL) Date Value 10/12/2023 83.2 MCH (pg) Date Value 10/12/2023 28.4 MCHC (g/dL) Date Value 10/12/2023 34.2 RDW-CV (%) Date Value 10/12/2023 13.8 Platelet Count (k/uL) Date Value 10/12/2023 175 MPV (fL) Date Value 10/12/2023 10.1 TOXICITY ASSESSMENT (CTC v4.0): Fatigue:grade 1 Radiation Dermatitis: grade 0 - No symptoms Diarrhea:grade 1 Proctitis: grade 0 - No symptoms Urinary frequency: grade 1 Dysuria: grade 0 - No symptoms Urinary incontinence: grade 0 (No symptoms) Urinary retention: grade 0 - No symptoms Treatment chart checked: Yes Patient treatment site reviewed and verified:Yes Port films reviewed and current:Yes Medications started: None ASSESSMENT/PLAN: Patient doing well. Discussed diet modification and Imodium for diarrhea if needed. 1Chart and imaging reviewed. Continue radiation as outlined. Verónica Ramos MD documented in this encounter [facility] 10-16-2023 Note HNO ID: [id number] Author: Verónica ARMOS MD Service: ? Author Type: Physician Type: Progress Notes Filed: 10/16/2023 10:51 Note Text: Radiation Oncology - On Treatment Review (OTR) Note PATIENT NAME: Yina Boyer PATIENT DIAGNOSIS: Prostate adenocarcinoma, initial PSA 6.2, biopsy Nunda score 4 + 4 = 8 (grade group 4), clinical stage T2a, N0, M0, stage IIC [T1-T2, N0, M0, PSA <20, GG 4] (AJCC 8th ed.), s/p TRUS Random and MR Targeted biopsy. Prostate cancer (C61), 2019 NCCN Risk Group: High Risk Group COURSE: definitive Current dose: 1620 cGy in 9 fx Planned dose: 4500 cGy in 25 fx SUBJECTIVE: Mild increase in stool frequency. Mild scrotal discomfort. No dysuria. No other new issues or problems. PHYSICAL EXAM: 10/16/23 1036 BP: 127/77 Pulse: 60 Resp: 18 Temp: 36 ?C (96.8 ?F) TempSrc: Temporal SpO2: 98% Weight: 105.4 kg (232 lb 5.8 oz) KPS: 100 General Appearance: Alert and oriented. No acute distress. IMAGING/LAB RESULTS: WBC (k/uL) Date Value 10/12/2023 4.66 RBC (m/uL) Date Value 10/12/2023 5.17 Hemoglobin (g/dL) Date Value 10/12/2023 14.7 Hematocrit (%) Date Value 10/12/2023 43.0 MCV (fL) Date Value 10/12/2023 83.2 MCH (pg) Date Value 10/12/2023 28.4 MCHC (g/dL) Date Value 10/12/2023 34.2 RDW-CV (%) Date Value 10/12/2023 13.8 Platelet Count (k/uL) Date Value 10/12/2023 175 MPV (fL) Date Value 10/12/2023 10.1 TOXICITY ASSESSMENT (CTC v4.0): Fatigue:grade 1 Radiation Dermatitis: grade 0 - No symptoms Diarrhea:grade 1 Proctitis: grade 0 - No symptoms Urinary frequency: grade 1 Dysuria: grade 0 - No symptoms Urinary incontinence: grade 0 (No symptoms) Urinary retention: grade 0 - No symptoms Treatment chart checked: Yes Patient treatment site reviewed and verified:Yes Port films reviewed and current:Yes Medications started: None ASSESSMENT/PLAN: Patient doing well. Discussed diet modification and Imodium for diarrhea if needed. 1Chart and imaging reviewed. Continue radiation as outlined. Verónica Ramos MD [facility] 10-12-2023 Nurse Note Yina Boyer presents in office today for: Lab Draw only . Ordering Provider: Edison Ramos M.D. Test (s) ordered: CBC Method for obtaining blood: Phlebotomy was performed, accessing left antecubital vein. Needle removed intact. Dressing secured. Patient denies discomfort, dizziness, light-headedness or weakness and left the department without assist. Tariq Nava LPN [facility] 10-12-2023 Nurse Note Yina Boyer presents in office today for: Lab Draw only . Ordering Provider: Edison Ramos M.D. Test (s) ordered: CBC Method for obtaining blood: Phlebotomy was performed, accessing left antecubital vein. Needle removed intact. Dressing secured. Patient denies discomfort, dizziness, light-headedness or weakness and left the department without assist. Tariq Nava LPN documented in this encounter [facility] 10-09-2023 Note HNO ID: [id number] Author: Verónica RAMOS MD Service: ? Author Type: Physician Type: Progress Notes Filed: 10/09/2023 10:40 Note Text: Radiation Oncology - On Treatment Review (OTR) Note PATIENT NAME: Yina Boyer PATIENT DIAGNOSIS: Prostate adenocarcinoma, initial PSA 6.2, biopsy Darlin score 4 + 4 = 8 (grade group 4), clinical stage T2a, N0, M0, stage IIC [T1-T2, N0, M0, PSA <20, GG 4] (AJCC 8th ed.), s/p TRUS Random and MR Targeted biopsy. Prostate cancer (C61), 2019 NCCN Risk Group: High Risk Group COURSE: definitive Current dose: 720 cGy in 4 fx Planned dose: 4500 cGy in 25 fx SUBJECTIVE: Mild increase in urinary urgency and frequency. PHYSICAL EXAM: KPS: 100 General Appearance: Alert and oriented. No acute distress. IMAGING/LAB RESULTS: None TOXICITY ASSESSMENT (CTC v4.0): Fatigue:grade 0 - No symptoms Radiation Dermatitis: grade 0 - No symptoms Diarrhea:grade 0 - No symptoms Proctitis: grade 0 - No symptoms Urinary frequency: grade 1 Dysuria: grade 0 - No symptoms Urinary incontinence: grade 0 (No symptoms) Urinary retention: grade 0 - No symptoms Treatment chart checked: Yes Patient treatment site reviewed and verified:Yes Port films reviewed and current:Yes Medications started: None ASSESSMENT/PLAN: Patient doing well. Chart and imaging reviewed. Continue radiation as outlined. Verónica Ramos MD [facility] 10-09-2023 History of Presen t illness Narrative Radiation Oncology - On Treatment Review (OTR) Note PATIENT NAME: Yina Boyer PATIENT DIAGNOSIS: Prostate adenocarcinoma, initial PSA 6.2, biopsy Darlin score 4 + 4 = 8 (grade group 4), clinical stage T2a, N0, M0, stage IIC [T1-T2, N0, M0, PSA <20, GG 4] (AJCC 8th ed.), s/p TRUS Random and MR Targeted biopsy. Prostate cancer (C61), 2019 NCCN Risk Group: High Risk Group COURSE: definitive Current dose: 720 cGy in 4 fx Planned dose: 4500 cGy in 25 fx SUBJECTIVE: Mild increase in urinary urgency and frequency. PHYSICAL EXAM: KPS: 100 General Appearance: Alert and oriented. No acute distress. IMAGING/LAB RESULTS: None TOXICITY ASSESSMENT (CTC v4.0): Fatigue:grade 0 - No symptoms Radiation Dermatitis: grade 0 - No symptoms Diarrhea:grade 0 - No symptoms Proctitis: grade 0 - No symptoms Urinary frequency: grade 1 Dysuria: grade 0 - No symptoms Urinary incontinence: grade 0 (No symptoms) Urinary retention: grade 0 - No symptoms Treatment chart checked: Yes Patient treatment site reviewed and verified:Yes Port films reviewed and current:Yes Medications started: None ASSESSMENT/PLAN: Patient doing well. Chart and imaging reviewed. Continue radiation as outlined. Verónica Ramos MD documented in this encounter [facility] 10-04-2023 History of Presen t illness Narrative Radiation Oncology - On Treatment Review (OTR) Note PATIENT NAME: Yina Boyer PATIENT DIAGNOSIS: Prostate adenocarcinoma, initial PSA 6.2, biopsy Nunda score 4 + 4 = 8 (grade group 4), clinical stage T2a, N0, M0, stage IIC [T1-T2, N0, M0, PSA <20, GG 4] (AJCC 8th ed.), s/p TRUS Random and MR Targeted biopsy. Prostate cancer (C61), 2019 NCCN Risk Group: High Risk Group COURSE: definitive Current dose: 180 cGy in 1 fx Planned dose: 4500 cGy in 25 fx SUBJECTIVE: Here to start radiation, doing well. PHYSICAL EXAM: KPS: 100 General Appearance: Alert and oriented. No acute distress. IMAGING/LAB RESULTS: None TOXICITY ASSESSMENT (CTC v4.0): Fatigue:grade 0 - No symptoms Radiation Dermatitis: grade 0 - No symptoms Diarrhea:grade 0 - No symptoms Proctitis: grade 0 - No symptoms Urinary frequency: grade 0 - No symptoms Dysuria: grade 0 - No symptoms Urinary incontinence: grade 0 (No symptoms) Urinary retention: grade 0 - No symptoms Treatment chart checked: Yes Patient treatment site reviewed and verified:Yes Port films reviewed and current:Yes Medications started: None ASSESSMENT/PLAN: Patient starting radiation today. Plan of care and expectations again reviewed. Plan, MU calculations and qa report reviewed. Initial imaging including cone beam ct and verification reviewed and approved. First treatment given. Continue radiation as prescribed. Verónica Ramos MD documented in this encounter [facility] 10-04-2023 Note HNO ID: [id number] Author: Verónica RAMOS MD Service: ? Author Type: Physician Type: Progress Notes Filed: 10/04/2023 12:02 Note Text: Radiation Oncology - On Treatment Review (OTR) Note PATIENT NAME: Yina Boyer PATIENT DIAGNOSIS: Prostate adenocarcinoma, initial PSA 6.2, biopsy Darlin score 4 + 4 = 8 (grade group 4), clinical stage T2a, N0, M0, stage IIC [T1-T2, N0, M0, PSA <20, GG 4] (AJCC 8th ed.), s/p TRUS Random and MR Targeted biopsy. Prostate cancer (C61), 2019 NCCN Risk Group: High Risk Group COURSE: definitive Current dose: 180 cGy in 1 fx Planned dose: 4500 cGy in 25 fx SUBJECTIVE: Here to start radiation, doing well. PHYSICAL EXAM: KPS: 100 General Appearance: Alert and oriented. No acute distress. IMAGING/LAB RESULTS: None TOXICITY ASSESSMENT (CTC v4.0): Fatigue:grade 0 - No symptoms Radiation Dermatitis: grade 0 - No symptoms Diarrhea:grade 0 - No symptoms Proctitis: grade 0 - No symptoms Urinary frequency: grade 0 - No symptoms Dysuria: grade 0 - No symptoms Urinary incontinence: grade 0 (No symptoms) Urinary retention: grade 0 - No symptoms Treatment chart checked: Yes Patient treatment site reviewed and verified:Yes Port films reviewed and current:Yes Medications started: None ASSESSMENT/PLAN: Patient starting radiation today. Plan of care and expectations again reviewed. Plan, MU calculations and qa report reviewed. Initial imaging including cone beam ct and verification reviewed and approved. First treatment given. Continue radiation as prescribed. Verónica Ramos MD [facility] 10-04-2023 Nurse Note On body monitor device removed. Patient is aware he is not to use it the duration of his radiation therapy. Tariq Nava Rn [facility] 10-04-2023 Nurse Note On body monitor device removed. Patient is aware he is not to use it the duration of his radiation therapy. Tariq Nava Rn documented in this encounter [facility] 10-02-2023 Telephone encounter Note CBC order pending your approval. Tariq Nava RN [facility] 10-02-2023 Miscellaneous Notes CBC order pending your approval. Tariq Nava RN documented in this encounter [facility] 09-20-2023 Telephone encounter Note I called and notified Cori with Dr. Rose Thorne's office that Booker will be starting radiation therapy likely within the next 1-2 weeks and he is unable to wear his on body glucose monitor for the length of his treatments. Patient states he had a glucometer, lancets, and test strips a couple years ago and is familiar with the process of self-stick glucose monitoring. Patient removed his on body device for his SIM and is aware he is able to put on a new one when he returns home. He is also aware he is not able to wear the device for the length of his radiation treatments. Cori states she will place a message out for Dr. Aldair Thorne with the above information. I notified Booker that he should expect a call from Dr. Thorne's office with further instructions. Booker denies questions at this time. Tariq Nava RN [facility] 09-20-2023 Miscellaneous Notes I called and notified Cori with Dr. Rose Thorne's office that Booker will be starting radiation therapy likely within the next 1-2 weeks and he is unable to wear his on body glucose monitor for the length of his treatments. Patient states he had a glucometer, lancets, and test strips a couple years ago and is familiar with the process of self-stick glucose monitoring. Patient removed his on body device for his SIM and is aware he is able to put on a new one when he returns home. He is also aware he is not able to wear the device for the length of his radiation treatments. Cori states she will place a message out for Dr. Aldair Thorne with the above information. I notified Booker that he should expect a call from Dr. Thorne's office with further instructions. Booker denies questions at this time. Tariq Nava RN documented in this encounter [facility] 09-20-2023 Note HNO ID: [id number] Author: Verónica RAMOS MD Service: ? Author Type: Physician Type: Progress Notes Filed: 09/29/2023 12:41 Note Text: sim [facility] 09-20-2023 History of Presen t illness Narrative sim documented in this encounter [facility] 09-20-2023 History of Presen t illness Narrative YINA BOYER [id number] 09/20/2023 [facility] Radiation Oncology Department SIMULATION NOTE DATE OF SIMULATION: 09/20/2023 THERAPIST: Rolanda Callejas MACHINE: [employer] DIAGNOSIS: Malignant neoplasm of [id number] AREA: PELVIS CONTRAST: None Consent in Epic: Yes PATIENT POSITION: Supine. FIXATION DEVICE: In order to achieve accurate and reproducible treatments, the patient is immobilized with ORFIT AIO A time-out was conducted and recorded by the therapist. CT scan was completed for target localization and planning. Field arrangement will be determined after plan has been completed. The patient is scheduled for a verification simulation on the treatment machine to ensure proper set-up and field arrangement is correct prior to the first treatment of primary and boost alvarez if applicable. Patient education will be completed per nursing. Electronically Signed Edison Ramos M.D. / NRS 1:36 AM documented in this encounter [facility] 09-20-2023 History of Presen t illness Narrative YINA BOYER [id number] 09/20/2023 [facility] Department of Radiation Oncology Treatment Planning Note For reasons stated in the consult note, Yina Boyer is a candidate for radiation therapy. Based on review and interpretation of the relevant diagnostic studies together with the exam findings, Yina Boyer was simulated on 09/20/2023 at which time the target volume and/or requisite alvarez were delineated, as indicated in the simulation note, to be treated according to the prescription. The treatment target and organs at risk were contoured on the simulation scan using the fused MRI. After reviewing multiple treatment plans with dosimetry, the best plan was approved to deliver the prescribed course of radiation to the target area using inverse planning to allow for the best isodose distribution, treating to the 97.7% isodose line with 10MV and 3 alvarez. Custom MLC asym jaws for IMRT were the treatment devices used to shape/modify the beams. Limiting dose to normal tissue was confirmed upon review of the calculated dose volume histogram. IMRT planning was used because it best met the dose/volume constraints for the organs at risk for this patient, better than what could be achieved using conventional or 3D planning. The specific dose requirements for the PTV, organs at risk and dose-volume histograms are contained in this treatment plan and/or elsewhere in the medical record. A completed summary of this plan dated 09/27/2023 incorporated herein by reference includes dose, beam arrangements, energy, blocking, isodose distribution, and/or ports and DVH. Electronically Signed Edison Ramos M.D. 1:58 AM documented in this encounter [facility] 09-20-2023 Note HNO ID: [id number] Author: Verónica RAMOS MD Service: ? Author Type: Physician Type: Progress Notes Filed: 09/25/2023 11:36 Note Text: YINA BOYER [id number] 09/20/2023 [facility] Radiation Oncology Department SIMULATION NOTE DATE OF SIMULATION: 09/20/2023 THERAPIST: Rolanda Callejas MACHINE: [employer] DIAGNOSIS: Malignant neoplasm of [id number] AREA: PELVIS CONTRAST: None Consent in Epic: Yes PATIENT POSITION: Supine. FIXATION DEVICE: In order to achieve accurate and reproducible treatments, the patient is immobilized with ORFIT AIO A time-out was conducted and recorded by the therapist. CT scan was completed for target localization and planning. Field arrangement will be determined after plan has been completed. The patient is scheduled for a verification simulation on the treatment machine to ensure proper set-up and field arrangement is correct prior to the first treatment of primary and boost alvarez if applicable. Patient education will be completed per nursing. Electronically Signed Edison Ramos M.D. / BARBARA 1:36 AM [facility] 09-20-2023 Note HNO ID: [id number] Author: Verónica RAMOS MD Service: ? Author Type: Physician Type: Progress Notes Filed: 09/27/2023 11:58 Note Text: YINA BOYER [id number] 09/20/2023 [facility] Department of Radiation Oncology Treatment Planning Note For reasons stated in the consult note, Yina Boyer is a candidate for radiation therapy. Based on review and interpretation of the relevant diagnostic studies together with the exam findings, Yina Boyer was simulated on 09/20/2023 at which time the target volume and/or requisite alvarez were delineated, as indicated in the simulation note, to be treated according to the prescription. The treatment target and organs at risk were contoured on the simulation scan using the fused MRI. After reviewing multiple treatment plans with dosimetry, the best plan was approved to deliver the prescribed course of radiation to the target area using inverse planning to allow for the best isodose distribution, treating to the 97.7% isodose line with 10MV and 3 alvarez. Custom MLC asym jaws for IMRT were the treatment devices used to shape/modify the beams. Limiting dose to normal tissue was confirmed upon review of the calculated dose volume histogram. IMRT planning was used because it best met the dose/volume constraints for the organs at risk for this patient, better than what could be achieved using conventional or 3D planning. The specific dose requirements for the PTV, organs at risk and dose-volume histograms are contained in this treatment plan and/or elsewhere in the medical record. A completed summary of this plan dated 09/27/2023 incorporated herein by reference includes dose, beam arrangements, energy, blocking, isodose distribution, and/or ports and DVH. Electronically Signed Edison Ramos M.D. 411:58 AM [facility] 09-08-2023 Hospital Discharg e instructions Patient Education 09/08/2023 15:55:55 Prostate Cancer Prostate Cancer The prostate is a small gland that produces fluid that makes up semen (seminal fluid). It is located below the bladder in men, in front of the rectum. Prostate cancer is the abnormal growth of cells in the prostate gland. What are the causes? The exact cause of this condition is not known. What increases the risk? You are more likely to develop this condition if: You are 65 years of age or older. You have a family history of prostate cancer. You have a family history of breast and ovarian cancer. You have genes that are passed from parent to child (inherited), such as BRCA1 and BRCA2. You have [place] syndrome. men and men of descent are diagnosed with prostate cancer at higher rates than other men. The reasons for this are not well understood and are likely due to a combination of genetic and environmental factors. What are the signs or symptoms? Symptoms of this condition include: Problems with urination. This may include: ?A weak or interrupted flow of urine. ?Trouble starting or stopping urination. ?Trouble emptying the bladder all the way. ?The need to urinate more often, especially at night. Blood in urine or semen. Persistent pain or discomfort in the lower back, lower abdomen, or hips. Trouble getting an erection. Weakness or numbness in the legs or feet. How is this diagnosed? This condition can be diagnosed with: A digital rectal exam. For this exam, a health care provider inserts a gloved finger into the rectum to feel the prostate gland. A blood test called a prostate-specific antigen (PSA) test. A procedure in which a sample of tissue is taken from the prostate and checked under a microscope (prostate biopsy). An imaging test called transrectal ultrasonography. Once the condition is diagnosed, tests will be done to determine how far the cancer has spread. This is called staging the cancer. Staging may involve imaging tests, such as a bone scan, CT scan, PET scan, or MRI. Stages of prostate cancer The stages of prostate cancer are as follows: Stage 1 (I). At this stage, the cancer is found in the prostate only. The cancer is not visible on imaging tests, and it is usually found by accident, such as during prostate surgery. Stage 2 (II). At this stage, the cancer is more advanced than it is in stage 1, but the cancer has not spread outside the prostate. Stage 3 (III). At this stage, the cancer has spread beyond the outer layer of the prostate to nearby tissues. The cancer may be found in the seminal vesicles, which are near the bladder and the prostate. Stage 4 (IV). At this stage, the cancer has spread to other parts of the body, such as the lymph nodes, bones, bladder, rectum, liver, or lungs. Prostate cancer grading Prostate cancer is also graded according to how the cancer cells look under a microscope. This is called the Darlin score and the total score can range from 6 10, indicating how likely it is that the cancer will spread (metastasize) to other parts of the body. The higher the score, the greater the likelihood that the cancer will spread. Nunda 6 or lower: This indicates that the cancer cells look similar to normal prostate cells (well differentiated). Darlin 7: This indicates that the cancer cells look somewhat similar to normal prostate cells (moderately differentiated). Darlin 8, 9, or 10: This indicates that the cancer cells look very different than normal prostate cells (poorly differentiated). How is this treated? Treatment for this condition depends on several factors, including the stage of the cancer, your age, personal preferences, and your overall health. Talk with your health care provider about treatment options that are recommended for you. Common treatments include: Observation for early stage prostate cancer (active surveillance). This involves having exams, blood tests, and in some cases, more biopsies. For some men, this is the only treatment needed. Surgery. Types of surgeries include: ?Open surgery (radical prostatectomy). In this surgery, a larger incision is made to remove the prostate. ?A laparoscopic radical prostatectomy. This is a surgery to remove the prostate and lymph nodes through several small incisions. It is often referred to as a minimally invasive surgery. ?A robotic radical prostatectomy. This is laparoscopic surgery to remove the prostate and lymph nodes with the help of robotic arms that are controlled by the surgeon. ?Cryoablation. This is surgery to freeze and destroy cancer cells. Radiation treatment. Types of radiation treatment include: ?External beam radiation. This type aims beams of radiation from outside the body at the prostate to destroy cancerous cells. ?Brachytherapy. This type uses radioactive needles, seeds, wires, or tubes that are implanted into the prostate gland. Like external beam radiation, brachytherapy destroys cancerous cells. An advantage is that this type of radiation limits the damage to surrounding tissue and has fewer side effects. Chemotherapy. This treatment kills cancer cells or stops them from multiplying. It kills both cancer cells and normal cells. Targeted therapy. This treatment uses medicines to kill cancer cells without damaging normal cells. Hormone treatment. This treatment involves taking medicines that act on testosterone, one of the male hormones, by: ?Stopping your body from producing testosterone. ?Blocking testosterone from reaching cancer cells. Follow these instructions at home: Lifestyle Do not use any products that contain nicotine or tobacco. These products include cigarettes, chewing tobacco, and vaping devices, such as e-cigarettes. If you need help quitting, ask your health care provider. Eat a healthy diet. To do this: ?Eat foods that are high in fiber. These include beans, whole grains, and fresh fruits and vegetables. ?Limit foods that are high in fat and sugar. These include fried or sweet foods. Treatment for prostate cancer may affect sexual function. If you have a partner, continue to have intimate moments. This may include touching, holding, hugging, and caressing your partner. Get plenty of sleep. Consider joining a support group for men who have prostate cancer. Meeting with a support group may help you learn to manage the stress of having cancer. General instructions Take [id number] and prescription medicines only as told by your health care provider. If you have to go to the hospital, notify your cancer specialist (oncologist). Keep all follow-up visits. This is important. Where to find more information [place] [employer]: www.cancer.org [place] [employer]: www.cancer.net National Cancer [place]: www.cancer.gov Contact a health care provider if: You have new or increasing trouble urinating. You have new or increasing blood in your urine. You have new or increasing pain in your hips, back, or chest. Get help right away if: You have weakness or numbness in your legs. You cannot control urination or your bowel movements (incontinence). You have chills or a fever. Summary The prostate is a small gland that is involved in the production of semen. It is located below a man's bladder, in front of the rectum. Prostate cancer is the abnormal growth of cells in the prostate gland. Treatment for this condition depends on the stage of the cancer, your age, personal preferences, and your overall health. Talk with your health care provider about treatment options that are recommended for you. Consider joining a support group for men who have prostate cancer. Meeting with a support group may help you learn to manage the stress of having cancer. This information is not intended to replace advice given to you by your health care provider. Make sure you discuss any questions you have with your health care provider. Document Revised: 06/09/2021 Document Reviewed: 06/09/2021 [employer] Patient Education 2022 [employer]. Follow Up Care 08/23/2023 13:54:25 With:Norris MURRAY, Ines Jo, WILFRIDO, URO Address: When: Unknown [facility] 08-23-2023 Nurse Note Radiation Therapy - Patient Education Note PATIENT NAME: Yina Boyer PATIENT August 23, 2023 [facility] FACILITY/LOCATION: [facility] READINESS TO LEARN Cognitive Ability: Alert and oriented Motivation to learn: Eager Family Support: High - Very involved in pt care Instruction provide to: Patient and family member Patient learns best by: Written Instruction - Hand-outs Factors effecting learning: None Physical limitations effecting learning: None LEARNING RESPONSE Diagnosis: Pt educated today for radiation therapy to pelvis. Education Topic/Teaching Points: Radiation therapy, Side effects, and OTV: Method of instruction: Verbal instruction Demonstration/Hands on Learning Patient /Family response: Patient and family verbalized understanding of radiation treatments, side effects, OTV, and transportation. Follow-up plan: Recommend - Recommend continued instruction and follow up as directed Supplemental material: Informational handouts on Prostate external beam. BINDER GIVEN Referral (recommendation): None, Pt denied need for social work, van service, and cofounder. Patient has an Onbody or Implanted device: No Signed by: Janette Merino, RN [facility] 08-23-2023 Nurse Note Radiation Therapy - Patient Education Note PATIENT NAME: Yina Boyer PATIENT August 23, 2023 [facility] FACILITY/LOCATION: [facility] READINESS TO LEARN Cognitive Ability: Alert and oriented Motivation to learn: Eager Family Support: High - Very involved in pt care Instruction provide to: Patient and family member Patient learns best by: Written Instruction - Hand-outs Factors effecting learning: None Physical limitations effecting learning: None LEARNING RESPONSE Diagnosis: Pt educated today for radiation therapy to pelvis. Education Topic/Teaching Points: Radiation therapy, Side effects, and OTV: Method of instruction: Verbal instruction Demonstration/Hands on Learning Patient /Family response: Patient and family verbalized understanding of radiation treatments, side effects, OTV, and transportation. Follow-up plan: Recommend - Recommend continued instruction and follow up as directed Supplemental material: Informational handouts on Prostate external beam. BINDER GIVEN Referral (recommendation): None, Pt denied need for social work, van service, and cofounder. Patient has an Onbody or Implanted device: No Signed by: Janette Merino RN documented in this encounter [facility] 08-23-2023 Note HNO ID: [id number] Author: Verónica RAMOS MD Service: ? Author Type: Physician Type: Progress Notes Filed: 08/31/2023 08:30 Note Text: Radiation Oncology - Prostate Cancer New Patient/Consult Note PATIENT NAME: Yina Boyer PATIENT REQUESTING PROVIDER: Dr. Capone OTHER PROVIDERS: Dr. Zendejas, Dr. Brewster DIAGNOSIS: 73 year old male with prostate adenocarcinoma, initial PSA 6.2, biopsy Darlin score 4 + 4 = 8 (grade group 4), clinical stage T2a, N0, M0, stage IIC [T1-T2, N0, M0, PSA <20, GG 4] (AJCC 8th ed.), s/p TRUS Random and MR Targeted biopsy. HPI: 73 year old male with prostate adenocarcinoma who presents for an opinion regarding the role of radiation therapy in the management of the patient's disease. Final recommendations will be communicated back to the requesting physician by way of the shared medical record, or letter to requesting physician via US mail. The patient was diagnosed with prostate cancer and comes in today to discuss treatment options. Patient presented with an elevated PSA of 5.17 on 1123, repeated 03/29/2023 value of 6.2 with 16% free. He underwent further evaluation with prostate MRI 05/23/2023 with the finding of a 35 cc gland and a focal area of hypointensity lateral right peripheral zone mid gland measuring 14 x 13 mm, capsular bulging suggestive of extracapsular extension, PI-RADS 5. Prostate biopsy with MR fusion on July 14, 2023 revealed: Adenocarcinoma, Nunda 8 (4+4) 13 cores from the right region of interest involved 8 with Nunda 8, 3 with grade group 3 and 2 with grade group 2. Evidence of perineural invasion seen. Total # of positive biopsy cores: 14 Total # of biopsy cores sampled: 25 Greatest % cancer in any single core: Greater than 50% Staging Studies: PSMA PET 08/15/2021:HEAD/NECK: * No PSMA expressing neoplastic process. CHEST: * No PSMA expressing neoplastic process. ABDOMENS/PELVIS: * PSMA avid prostate neoplasm. * No PSMA expressing neoplastic process elsewhere. MUSCULOSKELETAL: * No PSMA expressing neoplastic process. Previous Treatment for Prostate Cancer: None Genomic Testing: None The patient reports the following pertinent history: Urinary frequency (D/N): 4-6/1 Dysuria: No - Total AUA Score: 4 Bowel Movement Frequency: 1/day Bowel Movement Quality: Normal Blood per Rectum: No Last Colonoscopy: 2020 Baseline Erectile Function: 2- Diminished but usually satisfactory for intercourse Androgen Deprivation: none Prior Radiation Therapy, Collagen Vascular Disease, or Inflammatory Bowel Disease: No Any implanted or external electric devices? No Currently on Anticoagulation: No History of Hip Replacement: No History of Prior TURP: No ALLERGIES No Known Allergies rosuvastatin (CRESTOR) 40 mg tablet Take 20 mg by mouth once daily. allopurinol (ZYLOPRIM) 100 mg tablet Take 100 mg by mouth once daily. amLODIPine (NORVASC) 5 mg tablet Take 5 mg by mouth once daily. chlorthalidone (HYGROTON) 25 mg tablet Take 25 mg by mouth once daily. JARDIANCE 25 mg tablet Take 25 mg by mouth daily with breakfast. metFORMIN (GLUCOPHAGE) 1,000 mg tablet Take 1,000 mg by mouth two times a day with meals. metoprolol succinate ER (TOPROL XL) 50 mg 24 hr tablet Take 50 mg by mouth once daily. traZODone (DESYREL) 50 mg tablet Take 50 mg by mouth daily at bedtime. cyanocobalamin (VITAMIN B-12) 1,000 mcg tab Take 1,000 mcg by mouth once daily. atorvastatin (LIPITOR) 20 mg tablet Take 20 mg by mouth once daily. bicalutamide (CASODEX) 50 mg tablet Take 1 tablet by mouth once daily. bicalutamide (CASODEX) 50 mg tablet Take 1 tablet by mouth once daily. PAST MEDICAL HISTORY Diagnosis Date Prostate cancer (HCC) No past surgical history on file. No family history on file. Occupation: Retired Residence: Home REVIEW OF SYSTEMS: GENERAL: feeling well without fatigue, no recent change in weight NECK: denies swelling or pain in neck RESPIRATORY: no cough, no wheezing or shortness of breath CARDIOVASCULAR: no chest pain, no palpitations SKIN: no rash NEURO: no numbness or paresthesias and no weakness of the extremities As noted in HPI PHYSICAL EXAM: VS: BP 140/93 Pulse (!) 57 Temp 36.3 ?C (97.4 ?F) Resp 18 Wt 106.5 kg (234 lb 12.6 oz) SpO2 98% BMI 33.69 kg/m? KARNOFSKY PERFORMANCE STATUS: 100 General Appearance: Alert and oriented. No acute distress. HEENT: NCAT. Sclera anicteric. PERRL. EOMI. Neck: Normal ROM. No palpable cervical or supraclavicular adenopathy. Chest: No respiratory distress. Lungs clear to auscultation bilaterally. Heart: Regular rate and rhythm. Abdomen: Soft. Nontender. Nondistended. Musculoskeletal: No edema. Normal ROM in extremities. No bone or spine tenderness. Neuro: Speech fluent. Gait normal. No focal deficits. Skin: No rashes noted Lymphatics: No palpable lymphadenopathy. GENITOURINARY: Deferred exam RECTAL: Deferred exam RA (more content not included)... [facility] 08-23-2023 History of Presen t illness Narrative Radiation Oncology - Prostate Cancer New Patient/Consult Note PATIENT NAME: Yina Boyer PATIENT REQUESTING PROVIDER: Dr. Capone OTHER PROVIDERS: Dr. Zendejas, Dr. Brewster DIAGNOSIS: 73 year old male with prostate adenocarcinoma, initial PSA 6.2, biopsy Darlin score 4 + 4 = 8 (grade group 4), clinical stage T2a, N0, M0, stage IIC [T1-T2, N0, M0, PSA <20, GG 4] (AJCC 8th ed.), s/p TRUS Random and MR Targeted biopsy. HPI: 73 year old male with prostate adenocarcinoma who presents for an opinion regarding the role of radiation therapy in the management of the patient's disease. Final recommendations will be communicated back to the requesting physician by way of the shared medical record, or letter to requesting physician via [place] mail. The patient was diagnosed with prostate cancer and comes in today to discuss treatment options. Patient presented with an elevated PSA of 5.17 on 1122, repeated 03/29/2023 value of 6.2 with 16% free. He underwent further evaluation with prostate MRI 05/23/2023 with the finding of a 35 cc gland and a focal area of hypointensity lateral right peripheral zone mid gland measuring 14 x 13 mm, capsular bulging suggestive of extracapsular extension, PI-RADS 5. Prostate biopsy with MR fusion on July 14, 2023 revealed: Adenocarcinoma, Nunda 8 (4+4) 13 cores from the right region of interest involved 8 with Darlin 8, 3 with grade group 3 and 2 with grade group 2. Evidence of perineural invasion seen. Total # of positive biopsy cores: 14 Total # of biopsy cores sampled: 25 Greatest % cancer in any single core: Greater than 50% Staging Studies: PSMA PET 08/15/2021:HEAD/NECK: * No PSMA expressing neoplastic process. CHEST: * No PSMA expressing neoplastic process. ABDOMENS/PELVIS: * PSMA avid prostate neoplasm. * No PSMA expressing neoplastic process elsewhere. MUSCULOSKELETAL: * No PSMA expressing neoplastic process. Previous Treatment for Prostate Cancer: None Genomic Testing: None The patient reports the following pertinent history: Urinary frequency (D/N): 4-6/1 Dysuria: No - Total AUA Score: 4 Bowel Movement Frequency: 1/day Bowel Movement Quality: Normal Blood per Rectum: No Last Colonoscopy: 2020 Baseline Erectile Function: 2- Diminished but usually satisfactory for intercourse Androgen Deprivation: none Prior Radiation Therapy, Collagen Vascular Disease, or Inflammatory Bowel Disease: No Any implanted or external electric devices? No Currently on Anticoagulation: No History of Hip Replacement: No History of Prior TURP: No ALLERGIES No Known Allergies rosuvastatin (CRESTOR) 40 mg tablet Take 20 mg by mouth once daily. allopurinol (ZYLOPRIM) 100 mg tablet Take 100 mg by mouth once daily. amLODIPine (NORVASC) 5 mg tablet Take 5 mg by mouth once daily. chlorthalidone (HYGROTON) 25 mg tablet Take 25 mg by mouth once daily. JARDIANCE 25 mg tablet Take 25 mg by mouth daily with breakfast. metFORMIN (GLUCOPHAGE) 1,000 mg tablet Take 1,000 mg by mouth two times a day with meals. metoprolol succinate ER (TOPROL XL) 50 mg 24 hr tablet Take 50 mg by mouth once daily. traZODone (DESYREL) 50 mg tablet Take 50 mg by mouth daily at bedtime. cyanocobalamin (VITAMIN B-12) 1,000 mcg tab Take 1,000 mcg by mouth once daily. atorvastatin (LIPITOR) 20 mg tablet Take 20 mg by mouth once daily. bicalutamide (CASODEX) 50 mg tablet Take 1 tablet by mouth once daily. bicalutamide (CASODEX) 50 mg tablet Take 1 tablet by mouth once daily. PAST MEDICAL HISTORY Diagnosis Date Prostate cancer (HCC) No past surgical history on file. No family history on file. Occupation: Retired Residence: Home REVIEW OF SYSTEMS: GENERAL: feeling well without fatigue, no recent change in weight NECK: denies swelling or pain in neck RESPIRATORY: no cough, no wheezing or shortness of breath CARDIOVASCULAR: no chest pain, no palpitations SKIN: no rash NEURO: no numbness or paresthesias and no weakness of the extremities As noted in HPI PHYSICAL EXAM: VS: BP 140/93 Pulse (!) 57 Temp 36.3 C (97.4 F) Resp 18 Wt 106.5 kg (234 lb 12.6 oz) SpO2 98% BMI 33.69 kg/m KARNOFSKY PERFORMANCE STATUS: 100 General Appearance: Alert and oriented. No acute distress. HEENT: NCAT. Sclera anicteric. PERRL. EOMI. Neck: Normal ROM. No palpable cervical or supraclavicular adenopathy. Chest: No respiratory distress. Lungs clear to auscultation bilaterally. Heart: Regular rate and rhythm. Abdomen: Soft. Nontender. Nondistended. Musculoskeletal: No edema. Normal ROM in extremities. No bone or spine tenderness. Neuro: Speech fluent. Gait normal. No focal deficits. Skin: No rashes noted Lymphatics: No palpable lymphadenopathy. 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 Prostate cancer (C61), 2019 NCCN Risk Group: High Risk Group Clinical State: Localized Cancer - New Diagnosis Patient presents with localized high risk adenocarcinoma prostate. Overall performance status and health status excellent. He has met with radiation oncologist at [place] as well as Dr. Cabezas for opinions regarding definitive management. I discussed with patient all considerations including active surveillance and definitive treatment. Certainly with his excellent performance status and high risk disease would recommend definitive treatment. Radiation options discussed at length including external beam treatment with moderate hypofractionated IMRT, SBRT, brachytherapy. Discussed combination external beam treatment followed by brachytherapy boost along the lines of the ASCENDE-RT trial. Radiation safety cautions discussed. Potential acute and long-term risks of radiation discussed at length. The role of ADT and high risk disease also discussed as well as potential side effects regarding this. Patient and expressed understanding and the information presented. After long discussion they want proceed with external radiation followed by brachytherapy boost. Will have patient see Dr. Capone to initiate ADT and will have him back to initiate external beam component of treatment. Will coordinate brachytherapy with Dr. Capone's office. Signed by: Verónica Ramos MD cc: To use this Smartlink, specify the provider ID whose address you want to display, e.g., .PROVADDR[1 (where 1 is the provider ID). Danisha Zendejas [address] [facility] [address] documented in this encounter [facility] 08-23-2023 Nurse Note AUA 4 Pacemaker/Defibrillator? No Previous Cancer(s)? No Previous Radiation? No Lupus/Scleroderma? No On body monitoring device? No Janette Merino RN [facility] 08-23-2023 Nurse Note AUA 4 Pacemaker/Defibrillator? No Previous Cancer(s)? No Previous Radiation? No Lupus/Scleroderma? No On body monitoring device? No Janette Merino RN documented in this encounter [facility] 08-23-2023 Note Education ([place]) YINA BOYER ([id number]) 1950 M Date Time Provider Department 08/23/23 JANETTE MERINO Reason for Visit: Patient Education [91] Visit Notes: >> Janette Merino RN Wed August 23, 2023 11:25 AM Status: Signed Radiation Therapy - Patient Education Note PATIENT NAME: Yina Boyer PATIENT August 23, 2023 [facility] FACILITY/LOCATION: [facility] READINESS TO LEARN Cognitive Ability: Alert and oriented Motivation to learn: Eager Family Support: High - Very involved in pt care Instruction provide to: Patient and family member Patient learns best by: Written Instruction - Hand-outs Factors effecting learning: None Physical limitations effecting learning: None LEARNING RESPONSE Diagnosis: Pt educated today for radiation therapy to pelvis. Education Topic/Teaching Points: Radiation therapy, Side effects, and OTV: Method of instruction: Verbal instruction Demonstration/Hands on Learning Patient /Family response: Patient and family verbalized understanding of radiation treatments, side effects, OTV, and transportation. Follow-up plan: Recommend - Recommend continued instruction and follow up as directed Supplemental material: Informational handouts on Prostate external beam. BINDER GIVEN Referral (recommendation): None, Pt denied need for social work, van service, and cofounder. Patient has an Onbody or Implanted device: No Signed by: Janette Merino RN During your visit today, we recorded the following information about you: Allergies As of Date: 08/23/2023 (No Known Allergies) Date Reviewed: 08/23/2023 Reviewed by: Janette Merino RN - Fully Assessed Prescriptions as of 08/23/2023 - rosuvastatin (CRESTOR) 40 mg tablet Take 20 mg by mouth once daily. - allopurinol (ZYLOPRIM) 100 mg tablet Take 100 mg by mouth once daily. - amLODIPine (NORVASC) 5 mg tablet Take 5 mg by mouth once daily. - atorvastatin (LIPITOR) 20 mg tablet Take 20 mg by mouth once daily. - chlorthalidone (HYGROTON) 25 mg tablet Take 25 mg by mouth once daily. - JARDIANCE 25 mg tablet Take 25 mg by mouth daily with breakfast. - metFORMIN (GLUCOPHAGE) 1,000 mg tablet Take 1,000 mg by mouth two times a day with meals. - metoprolol succinate ER (TOPROL XL) 50 mg 24 hr tablet Take 50 mg by mouth once daily. - traZODone (DESYREL) 50 mg tablet Take 50 mg by mouth daily at bedtime. - cyanocobalamin (VITAMIN B-12) 1,000 mcg tab Take 1,000 mcg by mouth once daily. - bicalutamide (CASODEX) 50 mg tablet Take 1 tablet by mouth once daily. - bicalutamide (CASODEX) 50 mg tablet Take 1 tablet by mouth once daily. Encounter Status:Closed by JANETTE MERINO on 08/23/23 [facility] 08-16-2023 History of Presen t illness Narrative RADIOLOGY SERVICE PROGRESS NOTE SERVICE DATE: 08/16/2023 SERVICE TIME: 2:01 PM PATIENT IDENTITY VERIFICATION COMPLETED USING TWO (2) STANDARD IDENTIFIERS: Name and Date of confirmed by patient verbally and Name and Date of confirmed by identification band FALL SCREENING: Has the patient had 2 falls in the last year or 1 fall with injury or currently using an Ambulatory Assistive Device (Walker, Cane, Wheelchair, Crutches, etc.)? No PATIENT GENDER DATA: .male : No ALLERGIES: Reviewed and unchanged MEDICATIONS REVIEWED: No PATIENT RELEVANT IMPLANT DATA REVIEWED: Not Applicable PATIENT PRESENTS WITH AN IMPLANTABLE OR ATTACHED TRANSPORTATION MANAGER: No CREATININE: No results found for: CREAT , EGFROTH , EGFRAA P.O.C.T. RESULTS: N/A August 16, [address] PERFORMED: No IV SITE: Ambulatory: A peripheral IV was started in the Left WRIST with a Angio cath: 22 gauge. POST EXAM PIV STATUS: Discontinued PROCEDURE TYPE: NM INJECT: NM PET PSMA SCAN. 6.8 mCi Ga68- PSMA. No other medications given.. ADMINISTRATION TIME: 1353 PATIENT DISCHARGED TO: Ambulatory patient, left NM department area. A Diagnostic radioactive procedure has taken place, with no further precautions necessary other than routine body substance precautions. More information regarding radiation safety can be found using this link: [email or web address]% 20Nuclear%20Medicine%20Procedur [email or web address] SIGNATURE: MICHAEL Mcginnis) PATIENT NAME: Yina Boyer DATE: August 16, 2023 TIME: 2:01 PM PAGER/CONTACT #: documented in this encounter [facility] 08-16-2023 Note HNO ID: [id number] Author: SAJI SHAY RT (R) Service: ? Author Type: Technologist Type: Progress Notes Filed: 08/16/2023 14:02 Note Text: RADIOLOGY SERVICE PROGRESS NOTE SERVICE DATE: 08/16/2023 SERVICE TIME: 2:01 PM PATIENT IDENTITY VERIFICATION COMPLETED USING TWO (2) STANDARD IDENTIFIERS: Name and Date of confirmed by patient verbally and Name and Date of confirmed by identification band FALL SCREENING: Has the patient had 2 falls in the last year or 1 fall with injury or currently using an Ambulatory Assistive Device (Walker, Cane, Wheelchair, Crutches, etc.)? No PATIENT GENDER DATA: .male : No ALLERGIES: Reviewed and unchanged MEDICATIONS REVIEWED: No PATIENT RELEVANT IMPLANT DATA REVIEWED: Not Applicable PATIENT PRESENTS WITH AN IMPLANTABLE OR ATTACHED TRANSPORTATION MANAGER: No CREATININE: No results found for: CREAT , EGFROTH , EGFRAA P.O.C.T. RESULTS: N/A August 16, [address] PERFORMED: No IV SITE: Ambulatory: A peripheral IV was started in the Left WRIST with a Angio cath: 22 gauge. POST EXAM PIV STATUS: Discontinued PROCEDURE TYPE: NM INJECT: NM PET PSMA SCAN. 6.8 mCi Ga68- PSMA. No other medications given.. ADMINISTRATION TIME: 1353 PATIENT DISCHARGED TO: Ambulatory patient, left NM department area. A Diagnostic radioactive procedure has taken place, with no further precautions necessary other than routine body substance precautions. More information regarding radiation safety can be found using this link: [email or web address] 20Diagnostic%20Nuclear%20Medici ne%[email or web address] SIGNATURE: RT Ras(R) PATIENT NAME: Yina Boyer DATE: August 16, 2023 TIME: 2:01 PM PAGER/CONTACT #: [facility] 08-16-2023 Note HNO ID: [id number] Author: DANISHA ZENDEJAS MD Service: ? Author Type: Physician Type: Progress Notes Filed: 08/16/2023 12:58 Note Text: Radiation Oncology - Prostate Cancer New Patient/Consult Note PATIENT NAME: Yina Boyer PATIENT REQUESTING PROVIDER: Irina Cabezas MD DIAGNOSIS: 73 year old male with HR prostate cancer (iPSA 6.2, G4+4=8, cT2a [MRI suggestive of JOEL] N0) HPI: 73 year old male with prostate adenocarcinoma who presents for an opinion regarding the role of radiation therapy in the management of the patient's disease. Final recommendations will be communicated back to the requesting physician by way of the shared medical record, or letter to requesting physician via US mail. The patient was diagnosed with prostate cancer and comes in today to discuss treatment options. Clinical exam revealed a nodule. PSA history: Prostate biopsy on 07/14/23 revealed: Total # of positive biopsy cores: 6 Total # of biopsy cores sampled: 18 Greatest % cancer in any single core: Greater than 50% Staging Studies: MR Results: Previous Treatment for Prostate Cancer: None Genomic Testing: None The patient reports the following pertinent history: Urinary frequency (D/N): 6/1-2 Dysuria: No Incontinence: 1- No pads Hematuria: No - AUA Questionnaire (symptoms within the past 1 month) Incomplete Emptyin (not at all) Frequency (within 2 hours of previous void): 3 (about half the time) Intermittency: 2 (less than half the time) Urgency (difficulty postponing urination): 3 (about half the time) Weak Stream: 0 (not at all) Strainin (not at all) Nocturia: 1x per night - Total AUA Score: 9 Bowel Movement Frequency: 1-2/day Bowel Movement Quality: Normal Blood per Rectum: No Last Colonoscopy: 2020 Baseline Erectile Function: 2- Diminished but usually satisfactory for intercourse Sexual Health Inventory (MULU) score: Androgen Deprivation: none Prior Radiation Therapy, Collagen Vascular Disease, or Inflammatory Bowel Disease: No Any implanted or external electric devices? No Currently on Anticoagulation: No History of Hip Replacement: No History of Prior TURP: No ALLERGIES Not on File allopurinol (ZYLOPRIM) 100 mg tablet Take 100 mg by mouth once daily. amLODIPine (NORVASC) 5 mg tablet Take 5 mg by mouth once daily. atorvastatin (LIPITOR) 20 mg tablet Take 20 mg by mouth once daily. chlorthalidone (HYGROTON) 25 mg tablet Take 25 mg by mouth once daily. JARDIANCE 25 mg tablet Take 25 mg by mouth daily with breakfast. metFORMIN (GLUCOPHAGE) 1,000 mg tablet Take 1,000 mg by mouth two times a day with meals. metoprolol succinate ER (TOPROL XL) 50 mg 24 hr tablet Take 50 mg by mouth once daily. traZODone (DESYREL) 50 mg tablet Take 50 mg by mouth daily at bedtime. cyanocobalamin (VITAMIN B-12) 1,000 mcg tab Take 1,000 mcg by mouth once daily. bicalutamide (CASODEX) 50 mg tablet Take 1 tablet by mouth once daily. bicalutamide (CASODEX) 50 mg tablet Take 1 tablet by mouth once daily. PAST MEDICAL HISTORY Diagnosis Date Prostate cancer (HCC) No past surgical history on file. No family history on file. Occupation: retired Residence: home with [place] REVIEW OF SYSTEMS: GENERAL: Negative for weight loss, fevers, chills, or night sweats. HEENT: Negative for sudden vision or hearing changes. RESPIRATORY: Negative for cough or shortness of breath. CARDIAC: Negative for chest pain GI: Negative for nausea, vomiting, diarrhea, or constipation : Negative for dysuria, hematuria, urgency, frequency or incontinence. MUSCULOSKELETAL: Negative for limitations in movement, pain, or swelling. NEURO: Negative for dizziness, headache, weakness or numbness. SKIN: Negative for rashes or other skin changes. PHYSICAL EXAM: BP 129/83 Pulse (!) 58 Resp 18 Wt 108.1 kg (238 lb 5.1 oz) SpO2 97% BMI 34.20 kg/m? KPS: 90 General: Alert and oriented. No acute distress. HEENT: NCAT. Neck: Normal ROM. Chest: No respiratory distress. Musculoskeletal: No edema or cyanosis. Neuro: Speech fluent. Gait normal. Skin: No rashes noted GENITOURINARY: Deferred exam RECTAL: Deferred exam RADIOLOGY/LABORATORY DATA: see HPI ASSESSMENT/PLAN: Prostate cancer (C61), 2019 NCCN Risk Group: High Risk Group Clinical State: Localized Cancer - New Diagnosis There are no comorbidities requiring further evaluation. The treatment options for prostate cancer including radical prostatectomy, brachytherapy, external beam radiation, and androgen deprivation therapy were reviewed with the patient. He desires to proceed with the plan outlined below. EXTERNAL BEAM RADIATION MANAGEMENT: Mr. Boyer has decided to undergo external beam radiation, and understands the potential risks and benefits of this procedure. ANDROGEN DEPRIVATION THERAPY: Mr. Boyer has decided to undergo androgen deprivation therapy, and understands (more content not included)... [facility] 08-16-2023 Nurse Note Radiation Therapy - Nursing Note (Consult) PATIENT NAME: Yina Boyer PATIENT August 16, 2023 [facility] FACILITY/LOCATION: [place] Chief Complaint: prostate ca Reason for visit: Consult. Referring physician: External provider Dr Capone Subjective Data: Patient here with . He has no complaints Additional Data Do you want to see a Pot Maker? No Are you interested in information about fertility? No Sexual Activity: Male: Yes Stress Scale: On a scale of 0 to 10, what number best describes how much distress you have experienced in the past week?(0 being no distress and 10 being extreme distress) 4 Social work notified: no GENERAL INFORMATION: PREVIOUS CHEMOTHERAPY: no PREVIOUS RADIATION THERAPY: no PREVIOUS HORMONAL THERAPY: no NURSING ASSESSMENT: EYES: denies EARS: denies RESPIRATORY: denies CARDIOVASCULAR: Denies GASTROINTESTINAL: denies GENITOURINARY: frequency day 6/night 1-2 INTEGUMENTARY: denies MUSCULOSKELETAL: denies NEUROLOGIC: denies PSYCHIATRIC: denies NUTRITION: Are you currently following any diet? No Have you had any unintentional weight loss? No Do you have any difficulty chewing or swallowing? No Dietary Intake: Regular diet without any changes CONSULTS: No consults at this time OTHER INFORMATION: Are you currently residing at home? Yes Do you receive homecare services? No Do you drive? Yes Is the patient interested in van services? Not Applicable Do you have medical equipment or oxygen in the home? No Employment: Retired PATIENT EDUCATION: Topic: Radiation This education session included the patient and family. Prior to initiation, barriers to learning and limitations were assessed. Readiness to learn: Cognitive ability: Alert and oriented Motivation to learn: Interested - wants to learn Patient learns best by: multiple methods Barriers to learning: None Family support: High - Very involved in pt care Learning response: Topic: Radiation Therapy Method of instruction: Individual instruction Written instruction - handouts Verbal instruction Supplemental Material: Individualized patient education folder given and reviewed. During this visit, the patient was educated on potential side effects related to treatment. Teach back method of education was performed. The patient and family verbalized understanding. SIGNED by: Lili Copeland RN T [facility] 08-16-2023 Nurse Note Radiation Therapy - Nursing Note (Consult) PATIENT NAME: Yina Boyer PATIENT August 16, 2023 [facility] FACILITY/LOCATION: [place] Chief Complaint: prostate ca Reason for visit: Consult. Referring physician: External provider Dr Capone Subjective Data: Patient here with . He has no complaints Additional Data Do you want to see a Pot Maker? No Are you interested in information about fertility? No Sexual Activity: Male: Yes Stress Scale: On a scale of 0 to 10, what number best describes how much distress you have experienced in the past week?(0 being no distress and 10 being extreme distress) 4 Social work notified: no GENERAL INFORMATION: PREVIOUS CHEMOTHERAPY: no PREVIOUS RADIATION THERAPY: no PREVIOUS HORMONAL THERAPY: no NURSING ASSESSMENT: EYES: denies EARS: denies RESPIRATORY: denies CARDIOVASCULAR: Denies GASTROINTESTINAL: denies GENITOURINARY: frequency day 6/night 1-2 INTEGUMENTARY: denies MUSCULOSKELETAL: denies NEUROLOGIC: denies PSYCHIATRIC: denies NUTRITION: Are you currently following any diet? No Have you had any unintentional weight loss? No Do you have any difficulty chewing or swallowing? No Dietary Intake: Regular diet without any changes CONSULTS: No consults at this time OTHER INFORMATION: Are you currently residing at home? Yes Do you receive homecare services? No Do you drive? Yes Is the patient interested in van services? Not Applicable Do you have medical equipment or oxygen in the home? No Employment: Retired PATIENT EDUCATION: Topic: Radiation This education session included the patient and family. Prior to initiation, barriers to learning and limitations were assessed. Readiness to learn: Cognitive ability: Alert and oriented Motivation to learn: Interested - wants to learn Patient learns best by: multiple methods Barriers to learning: None Family support: High - Very involved in pt care Learning response: Topic: Radiation Therapy Method of instruction: Individual instruction Written instruction - handouts Verbal instruction Supplemental Material: Individualized patient education folder given and reviewed. During this visit, the patient was educated on potential side effects related to treatment. Teach back method of education was performed. The patient and family verbalized understanding. SIGNED by: Lili Copeland RN documented in this encounter [facility] 08-16-2023 History of Presen t illness Narrative Images from the original note were not included. Radiation Oncology - Prostate Cancer New Patient/Consult Note PATIENT NAME: Yina Boyer PATIENT REQUESTING PROVIDER: Irina Cabezas MD DIAGNOSIS: 73 year old male with HR prostate cancer (iPSA 6.2, G4+4=8, cT2a [MRI suggestive of JOEL] N0) HPI: 73 year old male with prostate adenocarcinoma who presents for an opinion regarding the role of radiation therapy in the management of the patient's disease. Final recommendations will be communicated back to the requesting physician by way of the shared medical record, or letter to requesting physician via US mail. The patient was diagnosed with prostate cancer and comes in today to discuss treatment options. Clinical exam revealed a nodule. PSA history: Prostate biopsy on 07/14/23 revealed: Total # of positive biopsy cores: 6 Total # of biopsy cores sampled: 18 Greatest % cancer in any single core: Greater than 50% Staging Studies: MR Results: Previous Treatment for Prostate Cancer: None Genomic Testing: None The patient reports the following pertinent history: Urinary frequency (D/N): 6/1-2 Dysuria: No Incontinence: 1- No pads Hematuria: No - AUA Questionnaire (symptoms within the past 1 month) Incomplete Emptyin (not at all) Frequency (within 2 hours of previous void): 3 (about half the time) Intermittency: 2 (less than half the time) Urgency (difficulty postponing urination): 3 (about half the time) Weak Stream: 0 (not at all) Strainin (not at all) Nocturia: 1x per night - Total AUA Score: 9 Bowel Movement Frequency: 1-2/day Bowel Movement Quality: Normal Blood per Rectum: No Last Colonoscopy: 2020 Baseline Erectile Function: 2- Diminished but usually satisfactory for intercourse Sexual Health Inventory (MULU) score: 22/25 Androgen Deprivation: none Prior Radiation Therapy, Collagen Vascular Disease, or Inflammatory Bowel Disease: No Any implanted or external electric devices? No Currently on Anticoagulation: No History of Hip Replacement: No History of Prior TURP: No ALLERGIES Not on File allopurinol (ZYLOPRIM) 100 mg tablet Take 100 mg by mouth once daily. amLODIPine (NORVASC) 5 mg tablet Take 5 mg by mouth once daily. atorvastatin (LIPITOR) 20 mg tablet Take 20 mg by mouth once daily. chlorthalidone (HYGROTON) 25 mg tablet Take 25 mg by mouth once daily. JARDIANCE 25 mg tablet Take 25 mg by mouth daily with breakfast. metFORMIN (GLUCOPHAGE) 1,000 mg tablet Take 1,000 mg by mouth two times a day with meals. metoprolol succinate ER (TOPROL XL) 50 mg 24 hr tablet Take 50 mg by mouth once daily. traZODone (DESYREL) 50 mg tablet Take 50 mg by mouth daily at bedtime. cyanocobalamin (VITAMIN B-12) 1,000 mcg tab Take 1,000 mcg by mouth once daily. bicalutamide (CASODEX) 50 mg tablet Take 1 tablet by mouth once daily. bicalutamide (CASODEX) 50 mg tablet Take 1 tablet by mouth once daily. PAST MEDICAL HISTORY Diagnosis Date Prostate cancer (HCC) No past surgical history on file. No family history on file. Occupation: retired Residence: home with , [place] REVIEW OF SYSTEMS: GENERAL: Negative for weight loss, fevers, chills, or night sweats. HEENT: Negative for sudden vision or hearing changes. RESPIRATORY: Negative for cough or shortness of breath. CARDIAC: Negative for chest pain GI: Negative for nausea, vomiting, diarrhea, or constipation : Negative for dysuria, hematuria, urgency, frequency or incontinence. MUSCULOSKELETAL: Negative for limitations in movement, pain, or swelling. NEURO: Negative for dizziness, headache, weakness or numbness. SKIN: Negative for rashes or other skin changes. PHYSICAL EXAM: BP 129/83 Pulse (!) 58 Resp 18 Wt 108.1 kg (238 lb 5.1 oz) SpO2 97% BMI 34.20 kg/m KPS: 90 General: Alert and oriented. No acute distress. HEENT: NCAT. Neck: Normal ROM. Chest: No respiratory distress. Musculoskeletal: No edema or cyanosis. Neuro: Speech fluent. Gait normal. Skin: No rashes noted GENITOURINARY: Deferred exam RECTAL: Deferred exam RADIOLOGY/LABORATORY DATA: see HPI ASSESSMENT/PLAN: Prostate cancer (C61), 2019 NCCN Risk Group: High Risk Group Clinical State: Localized Cancer - New Diagnosis There are no comorbidities requiring further evaluation. The treatment options for prostate cancer including radical prostatectomy, brachytherapy, external beam radiation, and androgen deprivation therapy were reviewed with the patient. He desires to proceed with the plan outlined below. EXTERNAL BEAM RADIATION MANAGEMENT: Mr. Boyer has decided to undergo external beam radiation, and understands the potential risks and benefits of this procedure. ANDROGEN DEPRIVATION THERAPY: Mr. Boyer has decided to undergo androgen deprivation therapy, and understands the potential risks and benefits of this procedure. ORDERS: Await PSMA PET result Follow-up: He would like to proceed with definitive radiation with ADT. We will connect him with Dr. Ramos at [facility] for treatment closer to home. Kalpesh Green MD Radiation Oncology Resident, PGY4 Pager: [phone] [facility] STAFF PHYSICIAN NOTE OF PERSONAL INVOLVEMENT IN CARE I have reviewed the history and physical examination and progress note obtained and documented by Dr Green and I personally participated in the noel components. I have discussed the case and management of the patient's care. I have read the above note and agree with its contents, as edited by me. Signed by: Danisha Zendejas MD [facility], [facility] [address] [place] [address] cc: Josi Capone MD [address] [facility] [address] Abran Ramos MD documented in this encounter [facility] 08-14-2023 Telephone encounter Note Authorization number: No Pre-cert Required Authorization date range: PSMA Primary Insurance: Medicare B Effective Date: 07/25/2016 Date of Initial PET: Pend scheduling Cancer Type: prostate ca Date of Subsequent PET scan: N/A PET Scan Related to Transplant: N/A ABN Required: No Diagnosis: Prostate cancer (HCC) [C61] DX Imaging: N/A Pathology: 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, totally aggregang to 50 mm, and 80% of all examined cores ?Darlin score are 4+4, 443, and 374 in various cores ??The tumor ofthe Nunda score 4 Labs: na Clinical Notes Reviewed: 08/11/23 Date of last: na Additional Information: N/A Radiologist Reviewed: N/A Initial/Subsequent: Initial Treatment Strategy: 0093 PET Protocol: PSMA Diagnostic Imaging Requested: No Is this a Pretreatment and/or an initial Pet scan: No - Schedule as requested Comments for Culinary Director: N/A ROUTE TO SCHEDULERS [place]OL P PET GLUCOSE AND SYRUP WEIGHER MC or P [place] SPECIAL STUDIES [facility] Work Phone: 08-14-2023 Miscellaneous Notes Authorization number: No Pre-cert Required Authorization date range: PSMA Primary Insurance: Medicare B Effective Date: 07/25/2016 Date of Initial PET: Pend scheduling Cancer Type: prostate ca Date of Subsequent PET scan: N/A PET Scan Related to Transplant: N/A ABN Required: No Diagnosis: Prostate cancer (HCC) [C61] DX Imaging: N/A Pathology: 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, totally aggregang to 50 mm, and 80% of all examined cores ?Nunda score are 4+4, 443, and 374 in various cores ??The tumor ofthe Darlin score 4 Labs: na Clinical Notes Reviewed: 08/11/23 Date of last: na Additional Information: N/A Radiologist Reviewed: N/A Initial/Subsequent: Initial Treatment Strategy: 0093 PET Protocol: PSMA Diagnostic Imaging Requested: No Is this a Pretreatment and/or an initial Pet scan: No - Schedule as requested Comments for Culinary Director: N/A ROUTE TO SCHEDULERS [place] P PET GLUCOSE AND SYRUP WEIGHER or P [place] SPECIAL STUDIES This form is used for MAIN CAMPUS APPOINTMENTS ONLY. Is this request for a [facility] [place] PET scan appointment? Yes: Sports Recruiter: Alexa Hdz APRN.COMMUNICATIONS MAINTAINER Requesting Person (Last Name, First Name): Irina Cabezas Area Code + Phone/Pager: [phone] Who do we call to schedule this appointment? Patient Requesting Staff Dr. Irina Cabezas Area Code + Phone/Pager: [phone] PET Orders (A delay in scheduling will result if the orders are not present at time of review): Internal ADDITIONAL ACTION MAY BE REQUIRED IF PATIENTS OON INSURANCE OR SELF PAY COVERAGE HAS NOT BEEN CLEARED FOR REQUESTED APPOINTMENT. Scheduling: LYUBOV: As soon as insurance will allow What account will this PET appointment be linked to? N/A Type of PET: Oncology: Are there additional diagnostic CT scans required to be done at time of PET scan? No Is the request for a PET MR ? No What account will diagnostic testing appointment be linked to? N/A Will the patient need anesthesia? NO Send requests to P [facility] REVIEW documented in this encounter [facility] 08-14-2023 Telephone encounter Note This form is used for MAIN CAMPUS APPOINTMENTS ONLY. Is this request for a [facility] [place] PET scan appointment? Yes: Sports Recruiter: Alexa Hdz APRN.COMMUNICATIONS MAINTAINER Requesting Person (Last Name, First Name): Irina Cabezas Area Code + Phone/Pager: [phone] Who do we call to schedule this appointment? Patient Requesting Staff Dr. Irina Cabezas Area Code + Phone/Pager: [phone] PET Orders (A delay in scheduling will result if the orders are not present at time of review): Internal ADDITIONAL ACTION MAY BE REQUIRED IF PATIENTS OON INSURANCE OR SELF PAY COVERAGE HAS NOT BEEN CLEARED FOR REQUESTED APPOINTMENT. Scheduling: LYUBOV: As soon as insurance will allow What account will this PET appointment be linked to? N/A Type of PET: Oncology: Are there additional diagnostic CT scans required to be done at time of PET scan? No Is the request for a PET MR ? No What account will diagnostic testing appointment be linked to? N/A Will the patient need anesthesia? NO Send requests to [facility]VIEW [facility] 08-11-2023 Note HNO ID: [id number] Author: IRINA CABEZAS MD Service: ? Author Type: Physician Type: Progress Notes Filed: 10/01/2023 11:49 Note Text: Referring Provider: Chief Complaint: Prostate Cancer HPI Yina Boyer is a 73 year old male with PMH of HLD, HTN, obesity, DM, elevated PSA prompting MRI with PR5 left peripheral zone lesion with EPE, with subsequent biopsy demonstrating Nunda 8 in MEG. The Pt mentions he is still able to get and maintain erections. Last PSA 5.2 Prostate volume 35cc. MRI Prostate 08/01/23 Prostate Biopsy Pathological Diagnosis A, positive biopsy, left base lateral: -Benign prostate tissue B. prostate biopsy, left base medial: -Benign positive tissue with focal mild atrophie change and mild surrounding nodular glandular hyperplasia C. positive biopsy, left mid lateral: -Benign prostate tissue with patchy foci of nodular glandular hyperplasia and benign adenomatous hyperplasia. and 1 small focus of low-grade PIN D. 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 Voiding ok. MULU -20 Family History of Genitourinary Cancer: Yes, prostate cancer in father REVIEW OF SYSTEMS GENERAL:No weight loss, malaise or fevers., SEE HPI HEENT:Negative for frequent or significant headaches, No changes in hearing or vision, no nose bleeds or other nasal problems RESPIRATORY: Negative for cough, wheezing or shortness of breath. CARDIOVASCULAR: Negative for chest pain, leg swelling or palpitations. GASTROINTESTINAL: Negative for abdominal discomfort, blood in stools or black stools or change in bowel habits GENITOURINARY: No history of dysuria, frequency or incontinence FAMILY RESOURCE COORDINATOR: Negative for abnormal vaginal bleeding, abnormal vaginal discharge MUSCULOSKELETAL: Negative for joint pain or swelling, back pain or muscle pain. NEUROLOGIC:Negative for focal numbness or weakness, headaches and dizziness or syncope. HEMATOLOGIC/LYMPHATIC/IMMUNOLOG IC:Negative for prolonged bleeding, bruising easily or swollen nodes. ENDOCRINE: Negative for cold or heat intolerance, polyuria, polydipsia and goiter. The remainder of the ROS was negative. HISTORIES No past medical history on file. No family history on file. SOCIAL HISTORY PHYSICAL EXAMINATION General appearance: Well appearing, alert, in no acute distress, and well-hydrated, well nourished Back: no pain to palpation over spine or costovertebral angles, reflexes are 2+ and symmetric, motor and sensory appear to be normal Lungs: Clear to auscultation no wheezing or rhonchi Heart: RRR without murmur, gallop, or rubs. No ectopy Abdomen: Normal abdominal exam, Abdomen soft, non-tender. Bowel sounds normal. No masses, organomegaly Extremities: Extremities normal. No deformities, edema, or skin discoloration. Good capillary refill. Musculoskeletal: Spine range of motion normal. Muscular strength intact, No joint swelling, deformity, or tenderness LABS Reviewed See above pathology IMAGING MRI Prostate 08/01/23 Noman Britton MD Assessment ASSESSMENT/PLAN: 1. Prostate cancer (HCC) - ICD9: 185, ICD10: C61 -GG4 in right PZ with suspected EPE -Will need PSMA PET for metastatic work up prior to proceeding with surgery and as close to home as possible - If we do go with the radical prostatectomy, we will do left sided nerve sparing - If he chooses surgery, robotic prostatectomy with pre-ops including PACC, pre-op teaching, labs, and EKG as close to home as possible -Risks Benefits Radical Prostatectomy The natural history of this disease was explained to the patient at length and the treatment options discussed including radical prostatectomy by open or robotic-assisted laparoscopic approach, external-beam radiotherapy, brachytherapy, and watchful waiting, including the probability of success and complications associated with these approaches. With respect to watchful waiting or active surveillan (more content not included)... [facility] 08-11-2023 History of Presen t illness Narrative Images from the original note were not included. Referring Provider: Chief Complaint: Prostate Cancer HPI Yina Boyer is a 73 year old male with PMH of HLD, HTN, obesity, DM, elevated PSA prompting MRI with PR5 left peripheral zone lesion with EPE, with subsequent biopsy demonstrating Darlin 8 in MEG. The Pt mentions he is still able to get and maintain erections. Last PSA 5.2 Prostate volume 35cc. MRI Prostate 08/01/23 Prostate Biopsy Pathological Diagnosis A, positive biopsy, left base lateral: -Benign prostate tissue B. prostate biopsy, left base medial: -Benign positive tissue with focal mild atrophie change and mild surrounding nodular glandular hyperplasia C. positive biopsy, left mid lateral: -Benign prostate tissue with patchy foci of nodular glandular hyperplasia and benign adenomatous hyperplasia. and 1 small focus of low-grade PIN D. 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 Voiding ok. MULU -20 Family History of Genitourinary Cancer: Yes, prostate cancer in father REVIEW OF SYSTEMS GENERAL:No weight loss, malaise or fevers., SEE HPI HEENT:Negative for frequent or significant headaches, No changes in hearing or vision, no nose bleeds or other nasal problems RESPIRATORY: Negative for cough, wheezing or shortness of breath. CARDIOVASCULAR: Negative for chest pain, leg swelling or palpitations. GASTROINTESTINAL: Negative for abdominal discomfort, blood in stools or black stools or change in bowel habits GENITOURINARY: No history of dysuria, frequency or incontinence FAMILY RESOURCE COORDINATOR: Negative for abnormal vaginal bleeding, abnormal vaginal discharge MUSCULOSKELETAL: Negative for joint pain or swelling, back pain or muscle pain. NEUROLOGIC:Negative for focal numbness or weakness, headaches and dizziness or syncope. HEMATOLOGIC/LYMPHATIC/IMMUNOLOG IC:Negative for prolonged bleeding, bruising easily or swollen nodes. ENDOCRINE: Negative for cold or heat intolerance, polyuria, polydipsia and goiter. The remainder of the ROS was negative. HISTORIES No past medical history on file. No family history on file. SOCIAL HISTORY PHYSICAL EXAMINATION General appearance: Well appearing, alert, in no acute distress, and well-hydrated, well nourished Back: no pain to palpation over spine or costovertebral angles, reflexes are 2+ and symmetric, motor and sensory appear to be normal Lungs: Clear to auscultation no wheezing or rhonchi Heart: RRR without murmur, gallop, or rubs. No ectopy Abdomen: Normal abdominal exam, Abdomen soft, non-tender. Bowel sounds normal. No masses, organomegaly Extremities: Extremities normal. No deformities, edema, or skin discoloration. Good capillary refill. Musculoskeletal: Spine range of motion normal. Muscular strength intact, No joint swelling, deformity, or tenderness LABS Reviewed See above pathology IMAGING MRI Prostate 08/01/23 Noman Britton MD Assessment ASSESSMENT/PLAN: 1. Prostate cancer (HCC) - ICD9: 185, ICD10: C61 -GG4 in right PZ with suspected EPE -Will need PSMA PET for metastatic work up prior to proceeding with surgery and as close to home as possible - If we do go with the radical prostatectomy, we will do left sided nerve sparing - If he chooses surgery, robotic prostatectomy with pre-ops including PACC, pre-op teaching, labs, and EKG as close to home as possible -Risks Benefits Radical Prostatectomy The natural history of this disease was explained to the patient at length and the treatment options discussed including radical prostatectomy by open or robotic-assisted laparoscopic approach, external-beam radiotherapy, brachytherapy, and watchful waiting, including the probability of success and complications associated with these approaches. With respect to watchful waiting or active surveillance, we discussed the difficulties of estimating the extent of disease preoperatively, the risk of cancer progression, and risk that salvage might not be possible with progression. However, the favorable 10-year outcomes of active surveillance in appropriately selected patients was conveyed. With respect to seed implants, we discussed risks including but not limited to cancer recurrence, exacerbation of voiding symptoms or hematuria, urinary retention, induction of 2nd malignancy, and risks of rectal symptoms or bleeding. We also discussed risks of the anesthesia including but not limited to VT, CVA, DVT, and PE. With respect to EBRT, we discussed we discussed risks including but not limited to cancer recurrence, exacerbation of voiding symptoms or hematuria, urinary retention, incontinence, stricture of the urinary tract, induction of 2nd malignancy, and risks of rectal symptoms or bleeding. We discussed fact that rectal symptoms may be more common with EBRT than with other treatment modalities. With radiation therapy, we discussed the difficulties in diagnosing recurrent disease at an early stage due to variability in PSA levels and the fact that most patients are not candidates for local salvage therapy when biochemical recurrence is declared. We also discussed the significant morbidity of local salvage therapy in terms of perioperative complications, erectile dysfunction and urinary incontinence. With respect to radical prostatectomy, the pros and cons of open vs robotic-assisted laparoscopic prostatectomy were discussed. The complications of this procedure were reviewed with the patient and include (but not limited to) urinary incontinence, erectile dysfunction, infertility, anastomotic stricture, lymphocele, hemorrhage requiring transfusion, rectal, ureteral, or nerve injury, infection, cardiovascular, pulmonary, thromboembolic, and anesthetic complications. For robotic prostatectomy, the additional complications of anastomotic urine leak and small bowel obstruction from adhesions was conveyed. With surgery, we also discussed the potential advantage over radiation therapy in that biochemical recurrence can be detected at a relatively earlier stage and that salvage radiotherapy is successful in controlling recurrent disease in a substantial proportion of patients. I also conveyed that salvage radiotherapy was associated with a considerably more favorable morbidity profile compared to local salvage therapies for radiorecurent disease. We also discussed prostate cryotherapy in detail, including aspects related to the procedure and the outcomes with respect to cancer control, urinary dysfunction, impotence, and morbidity. All questions were answered. I asked him to call if any additional questions or concerns or if he wanted to proceed with therapy with us. The patient is agreeable to proceed with robotic prostatectomy after thorough discussion of the rationale, risks, benefits, alternatives and personnel. Cadye Attestation: By signing my name below, I, Gurpreet Linton, attest that this documentation has been prepared under the direction and in the presence of Dr. Irina Cabezas MD. Electronically signed: Andrés Rizo, August 11, 2023 3:45 PM IIrina MD, personally performed the services described in this documentation. All medical record entries made by the scribe were at my direction and in my presence. I have reviewed the chart and discharge instructions (if applicable) and agree that the record reflects my personal performance and is accurate and complete. Irina Cabezas MD documented in this encounter [facility] 08-11-2023 Note Patient Outreach ([facility] OLM[facility]) YINA BOYER ([id number]) 1950 M Date Time Provider Department 08/11/23 IRINA CABEZAS During your visit today, we recorded the following information about you: Allergies As of Date: 08/11/2023 (Not on File) Date Reviewed: 08/11/2023 Reviewed by: Carlene Gunderson [facility] - Fully Assessed Visit Diagnosis:Screening for genitourinary condition [Z13.89] Order(s):URINALYSIS, REFLEX MICROSCOPIC [[id number]] Order #: [id number]. #:[id number] Prescriptions as of 08/14/2023 - allopurinol (ZYLOPRIM) 100 mg tablet Take 100 mg by mouth once daily. - amLODIPine (NORVASC) 5 mg tablet Take 5 mg by mouth once daily. - atorvastatin (LIPITOR) 20 mg tablet Take 20 mg by mouth once daily. - chlorthalidone (HYGROTON) 25 mg tablet Take 25 mg by mouth once daily. - JARDIANCE 25 mg tablet Take 25 mg by mouth daily with breakfast. - metFORMIN (GLUCOPHAGE) 1,000 mg tablet Take 1,000 mg by mouth two times a day with meals. - metoprolol succinate ER (TOPROL XL) 50 mg 24 hr tablet Take 50 mg by mouth once daily. - traZODone (DESYREL) 50 mg tablet Take 50 mg by mouth daily at bedtime. - cyanocobalamin (VITAMIN B-12) 1,000 mcg tab Take 1,000 mcg by mouth once daily. - bicalutamide (CASODEX) 50 mg tablet Take 1 tablet by mouth once daily. - bicalutamide (CASODEX) 50 mg tablet Take 1 tablet by mouth once daily. Problem List As Of Date: 08/11/2023 (None) Encounter Status:Closed by JERAMY HOGAN on 08/14/23 [facility] 07-27-2023 Hospital Discharg e instructions Patient Education 07/27/2023 12:51:10 Prostate Cancer Prostate Cancer The prostate is a small gland that produces fluid that makes up semen (seminal fluid). It is located below the bladder in men, in front of the rectum. Prostate cancer is the abnormal growth of cells in the prostate gland. What are the causes? The exact cause of this condition is not known. What increases the risk? You are more likely to develop this condition if: You are 65 years of age or older. You have a family history of prostate cancer. You have a family history of breast and ovarian cancer. You have genes that are passed from parent to child (inherited), such as BRCA1 and BRCA2. You have [place] syndrome. men and men of descent are diagnosed with prostate cancer at higher rates than other men. The reasons for this are not well understood and are likely due to a combination of genetic and environmental factors. What are the signs or symptoms? Symptoms of this condition include: Problems with urination. This may include: ?A weak or interrupted flow of urine. ?Trouble starting or stopping urination. ?Trouble emptying the bladder all the way. ?The need to urinate more often, especially at night. Blood in urine or semen. Persistent pain or discomfort in the lower back, lower abdomen, or hips. Trouble getting an erection. Weakness or numbness in the legs or feet. How is this diagnosed? This condition can be diagnosed with: A digital rectal exam. For this exam, a health care provider inserts a gloved finger into the rectum to feel the prostate gland. A blood test called a prostate-specific antigen (PSA) test. A procedure in which a sample of tissue is taken from the prostate and checked under a microscope (prostate biopsy). An imaging test called transrectal ultrasonography. Once the condition is diagnosed, tests will be done to determine how far the cancer has spread. This is called staging the cancer. Staging may involve imaging tests, such as a bone scan, CT scan, PET scan, or MRI. Stages of prostate cancer The stages of prostate cancer are as follows: Stage 1 (I). At this stage, the cancer is found in the prostate only. The cancer is not visible on imaging tests, and it is usually found by accident, such as during prostate surgery. Stage 2 (II). At this stage, the cancer is more advanced than it is in stage 1, but the cancer has not spread outside the prostate. Stage 3 (III). At this stage, the cancer has spread beyond the outer layer of the prostate to nearby tissues. The cancer may be found in the seminal vesicles, which are near the bladder and the prostate. Stage 4 (IV). At this stage, the cancer has spread to other parts of the body, such as the lymph nodes, bones, bladder, rectum, liver, or lungs. Prostate cancer grading Prostate cancer is also graded according to how the cancer cells look under a microscope. This is called the Darlin score and the total score can range from 6 10, indicating how likely it is that the cancer will spread (metastasize) to other parts of the body. The higher the score, the greater the likelihood that the cancer will spread. Nunda 6 or lower: This indicates that the cancer cells look similar to normal prostate cells (well differentiated). Nunda 7: This indicates that the cancer cells look somewhat similar to normal prostate cells (moderately differentiated). Darlin 8, 9, or 10: This indicates that the cancer cells look very different than normal prostate cells (poorly differentiated). How is this treated? Treatment for this condition depends on several factors, including the stage of the cancer, your age, personal preferences, and your overall health. Talk with your health care provider about treatment options that are recommended for you. Common treatments include: Observation for early stage prostate cancer (active surveillance). This involves having exams, blood tests, and in some cases, more biopsies. For some men, this is the only treatment needed. Surgery. Types of surgeries include: ?Open surgery (radical prostatectomy). In this surgery, a larger incision is made to remove the prostate. ?A laparoscopic radical prostatectomy. This is a surgery to remove the prostate and lymph nodes through several small incisions. It is often referred to as a minimally invasive surgery. ?A robotic radical prostatectomy. This is laparoscopic surgery to remove the prostate and lymph nodes with the help of robotic arms that are controlled by the surgeon. ?Cryoablation. This is surgery to freeze and destroy cancer cells. Radiation treatment. Types of radiation treatment include: ?External beam radiation. This type aims beams of radiation from outside the body at the prostate to destroy cancerous cells. ?Brachytherapy. This type uses radioactive needles, seeds, wires, or tubes that are implanted into the prostate gland. Like external beam radiation, brachytherapy destroys cancerous cells. An advantage is that this type of radiation limits the damage to surrounding tissue and has fewer side effects. Chemotherapy. This treatment kills cancer cells or stops them from multiplying. It kills both cancer cells and normal cells. Targeted therapy. This treatment uses medicines to kill cancer cells without damaging normal cells. Hormone treatment. This treatment involves taking medicines that act on testosterone, one of the male hormones, by: ?Stopping your body from producing testosterone. ?Blocking testosterone from reaching cancer cells. Follow these instructions at home: Lifestyle Do not use any products that contain nicotine or tobacco. These products include cigarettes, chewing tobacco, and vaping devices, such as e-cigarettes. If you need help quitting, ask your health care provider. Eat a healthy diet. To do this: ?Eat foods that are high in fiber. These include beans, whole grains, and fresh fruits and vegetables. ?Limit foods that are high in fat and sugar. These include fried or sweet foods. Treatment for prostate cancer may affect sexual function. If you have a partner, continue to have intimate moments. This may include touching, holding, hugging, and caressing your partner. Get plenty of sleep. Consider joining a support group for men who have prostate cancer. Meeting with a support group may help you learn to manage the stress of having cancer. General instructions Take [id number] and prescription medicines only as told by your health care provider. If you have to go to the hospital, notify your cancer specialist (oncologist). Keep all follow-up visits. This is important. Where to find more information [place] [employer]: www.cancer.org [place] [employer]: www.cancer.net National Cancer [place]: www.cancer.gov Contact a health care provider if: You have new or increasing trouble urinating. You have new or increasing blood in your urine. You have new or increasing pain in your hips, back, or chest. Get help right away if: You have weakness or numbness in your legs. You cannot control urination or your bowel movements (incontinence). You have chills or a fever. Summary The prostate is a small gland that is involved in the production of semen. It is located below a man's bladder, in front of the rectum. Prostate cancer is the abnormal growth of cells in the prostate gland. Treatment for this condition depends on the stage of the cancer, your age, personal preferences, and your overall health. Talk with your health care provider about treatment options that are recommended for you. Consider joining a support group for men who have prostate cancer. Meeting with a support group may help you learn to manage the stress of having cancer. This information is not intended to replace advice given to you by your health care provider. Make sure you discuss any questions you have with your health care provider. Document Revised: 06/09/2021 Document Reviewed: 06/09/2021 [employer] Patient Education 2022 [employer] Follow Up Care 07/07/2023 15:22:49 With:JERICHO MURRAY, Josi García, URL Address: Marissa RODRIG[address]Z [address] [place] [phone] When: Unknown Comments:referral to discuss prostate ca treatment options [facility] 05-09-2023 Telephone encounter Note Pt notified of lab results. Okay for b12 pills at [facility] 05-09-2023 Miscellaneous Notes Pt notified of lab results. Okay for b12 pills at [facility] ----- Message from Rose Thorne DO sent at 05/09/2023 8:08 AM EST ----- Please notify pt his Vit B12 level is a little low. I will order B12 pills for him to take. Please send when you know what pharmacy. I don't think he needs the injections as it is only mildly low. Will recheck levels in 3 months. thanks documented in this encounter [facility] 05-09-2023 Telephone encounter Note ----- Message from Rose Thorne DO sent at 05/09/2023 8:08 AM EST ----- Please notify pt his Vit B12 level is a little low. I will order B12 pills for him to take. Please send when you know what pharmacy. I don't think he needs the injections as it is only mildly low. Will recheck levels in 3 months. thanks [facility] 05-08-2023 History of Presen t illness Narrative Associated Problem(s): Type 2 diabetes mellitus with other diabetic neurological complication ([facility]) During the appointment today all pertinent labs, imaging, health maintenance, and glucose readings were reviewed. Encouraged to check blood glucose throughout the day with some fasting and some PP readings. They are to bring their glucose meter/cgm in to all appointments. All of the patients questions, treatment options, and current care plan and goals were discussed. A copy of this along with pertinent instructions were given to the patient at the end of the appointment. The patient voices understanding of all of this and is to call in between appointments if they have any problems or questions. Booker Boyer control is stable overall. , Will stay on current medications. , The patient is wearing their cgm on a daily basis and making decisions in regards to adjusting insulin daily as well for at least the last 60 days. Will check Vit B12 due to being on metformin and having some memory issues. Images from the original note were not included. oBoker Boyer is a 72 y.o. male presents with chief complaint of Diabetes HPI: Diabetes Mellitus Follow-up: Booker Boyer is here for follow-up evaluation of diabetes mellitus. The initial diagnosis of diabetes was made in 2011 Diabetes complications: none He has been checking his blood glucose with a Freestyle Cynthia 2 CGM -READER-on a daily basis. He is running smooth and in range most of the time. Last A1c: 7.2 on 02/06/2023 Last eye exam: 01/18/2022 Current concerns include: States his bg levels are improving overall Diet: trying to limit carbs and increasing protein Drinks: Diet Dr Doss, coffee with half and half, water Exercise: walking 4-5 days a week Hypoglycemia: none SUBJECTIVE: RECENT LABS: A1c Lab Results Component Value Date HGBA1C 7.1 05/08/2023 HGBA1C 7.2 (H) 02/06/2023 HGBA1C 7.6 12/08/2022 See medication list at the end of the note. Allergies Allergen Reactions Losartan Dizziness REVIEW OF SYMPTOMS: Review of Systems Constitutional: Negative for appetite change, fatigue and unexpected weight change. Eyes: Negative for visual disturbance. Respiratory: Negative for cough, shortness of breath and wheezing. Cardiovascular: Negative for chest pain, palpitations and leg swelling. Neurological: Negative for numbness. Endocrine: Negative for polydipsia, polyphagia and polyuria. OBJECTIVE: Visit Vitals BP 114/66 Pulse 74 Temp 98.4 F Ht 5' 11 Wt 239 lb SpO2 97% BMI 33.33 kg/m Smoking Status Never BSA 2.33 m Physical Exam Constitutional: General: He is not in acute distress. Appearance: Normal appearance. Cardiovascular: Rate and Rhythm: Normal rate and regular rhythm. Heart sounds: No murmur heard. No friction rub. No gallop. Pulmonary: Breath sounds: Normal breath sounds. No wheezing, rhonchi or rales. Musculoskeletal: General: No swelling. Neurological: Mental Status: He is alert. ASSESSMENT AND PLAN: Problem List Items Addressed This Visit Type 2 diabetes mellitus with other diabetic neurological complication ([facility]) During the appointment today all pertinent labs, imaging, health maintenance, and glucose readings were reviewed. Encouraged to check blood glucose throughout the day with some fasting and some PP readings. They are to bring their glucose meter/cgm in to all appointments. All of the patients questions, treatment options, and current care plan and goals were discussed. A copy of this along with pertinent instructions were given to the patient at the end of the appointment. The patient voices understanding of all of this and is to call in between appointments if they have any problems or questions. Booker Boyer control is stable overall. , Will stay on current medications. , The patient is wearing their cgm on a daily basis and making decisions in regards to adjusting insulin daily as well for at least the last 60 days. Will check Vit B12 due to being on metformin and having some memory issues. Relevant Medications Continuous Blood Gluc Sensor (FreeStyle Cynthia 3 Sensor) misc Continuous Blood Gluc Paper Conservator (FreeStyle Cynthia 3 [place]) device Other Relevant Orders POCT glycosylated hemoglobin (Hb A1C) docked device (Completed) Other Visit Diagnoses Vitamin B12 deficiency - Primary Relevant Orders Vitamin B12 Anemia, unspecified type Memory loss Relevant Orders Vitamin B12 TSH Follow up in about 3 months (around 08/06/2023) for Recheck. Patient's Medications New Prescriptions CONTINUOUS BLOOD GLUC CAR DROPPER (FREESTYLE CYNTHIA 3 READER) DEVICE 1 Device See administration instructions CONTINUOUS BLOOD GLUC SENSOR (FREESTYLE CYNTHIA 3 SENSOR) MISC Inject 1 Device under the skin every 14 (fourteen) days Previous Medications ALLOPURINOL (ZYLOPRIM) 100 MG TABLET Take 100 mg by mouth in the morning. AMLODIPINE (NORVASC) 5 MG TABLET Take 1 tablet (5 mg) by mouth in the morning. ATORVASTATIN (LIPITOR) 40 MG TABLET Take 1 tablet (40 mg) by mouth in the morning. CHLORTHALIDONE (HYGROTON) 25 MG TABLET TAKE 1 TABLET BY MOUTH IN THE MORNING WITH FOOD CONTINUOUS BLOOD GLUC SENSOR (FREESTYLE CYNTHIA 2 SENSOR) MISC USE DIRECTED FOR 14 DAYS JARDIANCE 25 MG TAKE 1/2 (ONE-HALF) OF A TABLET BY MOUTH DAILY METFORMIN (GLUCOPHAGE) 1000 MG TABLET TAKE 1 TABLET BY MOUTH TWICE DAILY WITH MEALS METOPROLOL SUCCINATE XL (TOPROL-XL) 50 MG 24 HR TABLET TAKE 1 TABLET BY MOUTH DAILY TRAZODONE (DESYREL) 50 MG TABLET TAKE 1 TABLET BY MOUTH AT BEDTIME NEEDED FOR 90 DAYS Modified Medications No medications on file Discontinued Medications TERBINAFINE (LAMISIL AT) 1 % CREAM Apply to face bid documented in this encounter [facility] 04-21-2023 [facility] Discharg e instructions Patient Education 04/21/2023 10:04:46 Prostate Cancer Screening Prostate Cancer Screening Prostate cancer screening is testing that is done to check for the presence of prostate cancer in men. The prostate gland is a walnut-sized gland that is located below the bladder and in front of the rectum in males. The function of the prostate is to add fluid to semen during ejaculation. Prostate cancer is one of the most common types of cancer in men. Who should have prostate cancer screening? Screening recommendations vary based on age and other risk factors, as well as between the professional organizations who make the recommendations. In general, screening is recommended if: You are age 50 to 70 and have an average risk for prostate cancer. You should talk with your health care provider about your need for screening and how often screening should be done. Because most prostate cancers are slow growing and will not cause , screening in this age group is generally reserved for men who have a 10- to 15-year life expectancy. You are younger than age 50, and you have these risk factors: ?Having a father, brother, or uncle who has been diagnosed with prostate cancer. The risk is higher if your family member's cancer occurred at an early age or if you have multiple family members with prostate cancer at an early age. ?Being a male who is Black or is of [place] or sub-Saharan descent. In general, screening is not recommended if: You are younger than age 40. You are between the ages of 40 and 49 and you have no risk factors. You are 70 years of age or older. At this age, the risks that screening can cause are greater than the benefits that it may provide. If you are at high risk for prostate cancer, your health care provider may recommend that you have screenings more often or that you start screening at a younger age. How is screening for prostate cancer done? The recommended prostate cancer screening test is a blood test called the prostate-specific antigen (PSA) test. PSA is a protein that is made in the prostate. As you age, your prostate naturally produces more PSA. Abnormally high PSA levels may be caused by: Prostate cancer. An enlarged prostate that is not caused by cancer (benign prostatic hyperplasia, or BPH). This condition is very common in older men. A prostate gland infection (prostatitis) or urinary tract infection. Certain medicines such as male hormones (like testosterone) or other medicines that raise testosterone levels. A rectal exam may be done as part of prostate cancer screening to help provide information about the size of your prostate gland. When a rectal exam is performed, it should be done after the PSA level is drawn to avoid any effect on the results. Depending on the PSA results, you may need more tests, such as: A physical exam to check the size of your prostate gland, if not done as part of screening. Blood and imaging tests. A procedure to remove tissue samples from your prostate gland for testing (biopsy). This is the only way to know for certain if you have prostate cancer. What are the benefits of prostate cancer screening? Screening can help to identify cancer at an early stage, before symptoms start and when the cancer can be treated more easily. There is a small chance that screening may lower your risk of dying from prostate cancer. The chance is small because prostate cancer is a slow-growing cancer, and most men with prostate cancer from a different cause. What are the risks of prostate cancer screening? The main risk of prostate cancer screening is diagnosing and treating prostate cancer that would never have caused any symptoms or problems. This is called overdiagnosisand overtreatment. PSA screening cannot tell you if your PSA is high due to cancer or a different cause. A prostate biopsy is the only procedure to diagnose prostate cancer. Even the results of a biopsy may not tell you if your cancer needs to be treated. Slow-growing prostate cancer may not need any treatment other than monitoring, so diagnosing and treating it may cause unnecessary stress or other side effects. Questions to ask your health care provider When should I start prostate cancer screening? What is my risk for prostate cancer? How often do I need screening? What type of screening tests do I need? How do I get my test results? What do my results mean? Do I need treatment? Where to find more information The [place] [employer]: www.cancer.org [place] [employer]: www.auanet.org Contact a health care provider if: You have difficulty urinating. You have pain when you urinate or ejaculate. You have blood in your urine or semen. You have pain in your back or in the area of your prostate. Summary Prostate cancer is a common type of cancer in men. The prostate gland is located below the bladder and in front of the rectum. This gland adds fluid to semen during ejaculation. Prostate cancer screening may identify cancer at an early stage, when the cancer can be treated more easily and is less likely to have spread to other areas of the body. The prostate-specific antigen (PSA) test is the recommended screening test for prostate cancer, but it has associated risks. Discuss the risks and benefits of prostate cancer screening with your health care provider. If you are age 70 or older, the risks that screening can cause are greater than the benefits that it may provide. This information is not intended to replace advice given to you by your health care provider. Make sure you discuss any questions you have with your health care provider. Document Revised: 09/06/2021 Document Reviewed: 09/06/2021 [employer] Patient Education 2022 [employer]. Follow Up Care 02/17/2023 13:33:35 With:Norris MURRAY, WILFRIDO Archibald, URO Address: [address] [place] [phone] When: Unknown Comments:sched prostate MRI [facility] James Evaluation + Plan note No data available for this section [facility] Evaluation + Plan note [facility] Evaluation + Plan note Future Appointments Appointment Date:12/22/2023 09:00:00 AM Scheduled Provider:Ines Pisano MD Location:[facility] access hospital Appointment Type:URO Office Visit [facility] Evaluation note Diagnosis Vitamin B12 deficiency- Primary Other B-complex deficiencies 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) Anemia, unspecified type Memory loss documented in this encounter [facility] HealthcareEvaluation note* Diagnosis Vitamin B12 deficiency- Primary Other B-complex deficiencies documented in this encounter [facility] HealthcareEvaluation noteNo assessment information [facility] Work Phone: [facility] note* Diagnosis Screening for genitourinary condition Screening for other and unspecified genitourinary condition [facility] Diagnosis Prostate cancer (HCC)- Primary Malignant neoplasm of prostate Malignant neoplasm of prostate (HCC) Malignant neoplasm of prostate [facility] Diagnosis Malignant neoplasm of prostate (HCC)- Primary Malignant neoplasm of prostate Neoplasm of unspecified behavior of unspecified site Malignant neoplasm of prostate (HCC) Malignant neoplasm of prostate [facility] Diagnosis Prostate cancer (HCC) Malignant neoplasm of prostate Malignant neoplasm of prostate (HCC) Malignant neoplasm of prostate [facility] Diagnosis Onset Date Resolution Status Prostate cancer [facility] Work Phone: evaluation note* Diagnosis Prostate cancer (HCC)- Primary Malignant neoplasm of prostate [facility] Diagnosis Prostate cancer (HCC)- Primary Malignant neoplasm of prostate [facility] Diagnosis Prostate cancer (HCC)- Primary Malignant neoplasm of prostate Prostate cancer (HCC) Malignant neoplasm of prostate [facility] Diagnosis Prostate cancer (HCC)- Primary Malignant neoplasm of prostate [facility] Prostate cancer (HCC)- Primary Malignant neoplasm of prostate [facility] Diagnosis Prostate cancer (HCC)- Primary Malignant neoplasm of prostate [facility] Diagnosis Prostate cancer (HCC) Malignant neoplasm of prostate [facility] Diagnosis Malignant neoplasm of prostate (HCC)- Primary Malignant neoplasm of prostate [facility] Diagnosis Malignant neoplasm of prostate (HCC)- Primary Malignant neoplasm of prostate [facility] Diagnosis Malignant neoplasm of prostate (HCC)- Primary Malignant neoplasm of prostate [facility] Diagnosis Malignant neoplasm of prostate (HCC)- Primary Malignant neoplasm of prostate [facility] Additional Instructions DISCHARGE INSTRUCTIONS FOR PROSTATE BIOPSY The following instructions must be followed very closely: -If you need pain pills, start before pain becomes intense. Antibiotics and pain pills are frequently less upsetting to your stomach if you take them wiht food such as crackers or bread. -If you are having excessive or persistent pain, swelling, bleeding, nausea, vomiting, or any other problems, you should first call your surgeon for advice. If you are unable to contact your surgeon, seek help from a hospital emergency room. If you were given drugs to make you drowsy and/or pain medication, follow these instructions: -You should spend the remainder of the day and evening resting. -You should not attempt to walk, including going to the bathroom, without assistance. You may be lightheaded from the medications you received. -Eat light today to avoid nausea. You should be able to return to your normal diet 24-36 hours after surgery. -For the next 24 hours you should not consume alcohol, attempt to drive, use any power tools, sign important documents or make important personal or business decisions After that, do so if you feel perfectly normal and alert. -Follow carefully any verbal or written instructions your surgeon may have given you. -Even though there are no visible incisions, multiple prostate biopsies have been taken through the rectum, and you need to follow some instructions to minimize the risks of bleeding. -You may see some blood in your urine and stool for up to 1 week (and blood in semen for several months). DIET -You may resume your normal diet, but you may want to start slowly and avoid alcohol, carbonated beverages, caffeine, and spicy food. -Drink plenty of water to keep the urine clear. ACTIVITY -You should limit any physical activity for 48 hours. -No heavy lifting and straining (10 pound limit). -No driving a car and limit long car rides for 2 days. -No strenuous exercise. -No sexual intercourse until this is discussed with your doctor. BOWELS -Try to keep your bowel movements soft to minimize straining to have a bowel movement. You may use a stool softener or over the counter laxative if needed. -Difficult bowel movements may lead to straining and bleeding from the prostate. MEDICATIONS -You may resume your home medications unless otherwise instructed. -[Hold aspirin, ibuprofen, Coumadin (warfarin), and other blood thinners for about two days or until there is no active bleeding unless otherwise instructed.] -Finish the antibiotics which you have already started. THINGS TO WATCH FOR WHICH WOULD REQUIRE AN EMERGENCY ROOM VISIT OR CALL 911 (This is not a complete list) -Persistent or heavy bleeding or blood clots from the rectum or urine. -Inability to urinate. -Fever over 101.5 degrees Fahrenheit, with or without chills. -Severe drug reactions with itching, hives, or rash. -Tenderness or swelling of the calves, chest pain, or shortness of breath. FOLLOW UP -Please call the office to arrange for your post-operative appointment in 1-2 weeks. [ ][facility] Work Phone: Hospital Discharge instructionsAmbulatory Orders* Referral to Genetic Counseling Location: None Selected [facility] Work Phone: Progress note No data available for this section [facility] [employer] Reason for referral (narrative) Referred by: Josi CAPONE MD Referred by: Josi CAPONE MD [facility] George reason for referral (narrative)* Diagnostic Procedure Only (Routine) - Closed Specialty Diagnoses / Procedures Referred By Contac t Referred To Contact MOLECULAR & FUNCTIONAL IMAGING Diagnoses Prostate cancer (HCC) Procedures NM PET/CT PROSTATE WHOLE BODY IMAGING PET IMAGING CT ATTENUATION SKULL BASE MID-THIGH Irina Cabezas MD [address] [place] [address] Molecular & Functional Imaging [address] [place] [address] Referral ID Status Reason Start Date Expiration Date V isits Requested Visits Authorized [id number] Closed Auto-Generate d Referral 08/11/2023 09/09/2024 1 1 [facility] for referral (narrative)* Diagnostic Procedure Only (Routine) - Closed Specialty Diagnoses / Procedures [facility]erred To Contact MOLECULAR & FUNCTIONAL IMAGING Diagnoses Prostate cancer (HCC) Procedures NM PET/CT PROSTATE WHOLE BODY IMAGING PET IMAGING CT ATTENUATION SKULL BASE MID-THIGH Irina Cabezas MD [address] [place] [address] Molecular & Functional Imaging [address] [place] [address] Referral ID Status Reason Start Date Expiration Date V isits Requested Visits Authorized [id number] Closed Auto-Generate d Referral 08/11/2023 09/09/2024 1 1 [facility] for visit Narrative* Diagnostic Procedure Only (Routine) - Closed Specialty Diagnoses / Procedures [facility] Referred To Contact MOLECULAR & FUNCTIONAL IMAGING Diagnoses Prostate cancer (HCC) Procedures NM PET/CT PROSTATE WHOLE BODY IMAGING PET IMAGING CT ATTENUATION SKULL BASE MID-THIGH Irina Cabezas MD [address] [place] [address] Molecular & Functional Imaging [address] [place] [address] Referral ID Status Reason Start Date Expiration Date V isits Requested Visits Authorized [id number] Closed Auto-Generate d Referral 08/11/2023 09/09/2024 1 1 [facility] Advance Directives Latest Code Status on File Code Status Date Activated Date Inactivated Comments Full Code 02/09/2023 8:57 AM Advance Directive Response Recorded Date/ Time Advance Directives No January 02, 2019 7:16am Chief Complaint and Reason for Visit Chief Complaint R97.20 Z80.42 Elevated PSA Chief Complaint R97.20 Z80.42 Elevated PSA Elevated PSA Chief Complaint Elevated PSA Elevated PSA Prostate New Patient Prostate Reason for Visit Prostate cancer Family History No Family History Records Found Relationship Condition Age at Onset Recorded Date/T yon father Malignant neoplasm of prostate Unknown Unknown Cerebrovascular accident (CVA) Unknown Not Specified Aneurysm Unknown brother Malignant neoplasm of colon Unknown brother Congestive heart failure Unknown Relationship Condition Age at Onset Recorded Date/T yon father Unknown Malignant neoplasm of prostate Unknown Not Specified Unknown Aneurysm Unknown brother Malignant neoplasm of colon Unknown brother Congestive heart failure Unknown Reason for Referral Specialty Diagnoses / Procedures Referred By Contac t Referred To Contact Diagnoses Prostate cancer (HCC) Procedures CT SIM PLANNING RADIATION ONCOLOGY THER RAD SIMULAJ-AIDED FIELD SETTING COMPLEX Verónica Ramos MD [address] [place] [address] [place] [address] Referral ID Status Reason Start Date Expiration Date Visits Requested Visits Authorized [id number] Pending Review PCP Requested Referral 09/29/2023 12/19/2023 1 1 Specialty Diagnoses / Procedures Referred By Contac t Referred To Contact Diagnoses Malignant neoplasm of prostate (HCC) Procedures REFER TO PACC - PRE ANESTHESIA CONSULTATION CLINIC OFFICE/OUTPATIENT NEW HIGH MDM 60 MINUTES Irina Cabezas MD [address] [place] [address] Referral ID Status Reason Start Date Expiration Date Visits Requested Visits Authorized [id number] Authorized PCP Requested Referral 08/16/2023 08/15/2024 1 1 Specialty Diagnoses / Procedures Referred By Contac t Referred [facility] Diagnoses Malignant neoplasm of prostate (HCC) Procedures ECG COMPLETE ECG ROUTINE ECG W/LEAST 12 LDS W/I&R Irina Cabezas MD [address] [address] [facility] [place] [address] Referral ID Status Reason Start Date Expiration Date Visits Requested Visits Authorized [id number] Pending Review Auto-Generat ed Referral 08/16/2023 08/15/2024 1 1 Summary Purpose Additional Source Comments Patient Care team informatio n (unrecognized section and content) Senior Environmental Scientist Relationship Specialty Start Date End Date Sriram Brewster DO [address] [place] [address] PCP - ACO Reach 08/18/22 Sriram Brewster DO [address] [place] [address] PCP - General Internal Medicine 08/02/22 Senior Environmental Scientist Relationship Specialty Start Date End Date Sriram Brewster DO [address] [place] [address] PCP - ACO Reach 08/18/22 Sriram Brewster DO [address] [place] [address] PCP - General Internal Medicine 08/02/22 Team Status: Active Member Role Status Dates Sriram Brewster DO Primary Care Provider Active Team Status: Inactive Member Role Status Dates Sriram Brewster DO Primary Care Provider Active Start: May 23, 2023 End: May 23, 2023 Ines Pisano MD Attending Provider Active Start : May 23, 2023 End: May 23, 2023 Team Status: Inactive Member Role Status Dates Sriram Brewster DO Primary Care Provider Active Start: June 30, 2023 End: June 30, 2023 Josi Capone MD Attending Provider Active St art: June 30, 2023 End: June 30, 2023 Team Status: Inactive Member Role Status Dates Sriram Brewster DO Primary Care Provider Active Start: July 14, 2023 End: July 14, 2023 Josi Capone MD Attending Provider Active St art: July 14, 2023 End: July 14, 2023 Senior Environmental Scientist Relationship Specialty Start Date End Date Josi Capone MD [address] [place] [id number] Referring Urology 08/08/23 Senior Environmental Scientist Relationship Specialty Start Date End Date Josi Capone MD [address] [place] [id number] Referring Urology 08/08/23 Senior Environmental Scientist Relationship Specialty Start Date End Date Josi Capone MD [address] [place] [id number] Referring Urology 08/08/23 Senior Environmental Scientist Relationship Specialty Start Date End Date Josi Capone MD [address] [place] [address] Referring Urology 08/08/23 Senior Environmental Scientist Relationship Specialty Start Date End Date Josi Capone MD [address] [place] [id number] Referring Urology 08/08/23 Senior Environmental Scientist Relationship Specialty Start Date End Date Josi Capone MD [address] [place] [address] Referring Urology 08/08/23 Team Status: Active Member Role Status Dates Sriram Brewster DO Primary Care Provider Active Start: August 22, 2023 Primo Fisher MD Attending Provider Active Start: August 22, 2023 Josi Capone MD Referring Provider Active St art: August 22, 2023 Team Status: Inactive Member Role Status Dates Sriram Brewster DO Primary Care Provider Active Start: August 22, 2023 End: August 22, 2023 Primo Fisher MD Attending Provider Active Start: August 22, 2023 End: August 22, 2023 Josi Capone MD Referring Provider Active St art: August 22, 2023 End: August 22, 2023 Senior Environmental Scientist Relationship Specialty Start Date End Date Josi Capone MD [address] [place] [address] Referring Urology 08/08/23 Senior Environmental Scientist Relationship Specialty Start Date End Date Josi Capone MD [address] [place] [phone] Referring Urology 08/08/23 Senior Environmental Scientist Relationship Specialty Start Date End Date Josi Capone MD [address] [place] [address] Referring Urology 08/08/23 Senior Environmental Scientist Relationship Specialty Start Date End Date Josi Capone MD [address] [place] [id number] Referring Urology 08/08/23 Senior Environmental Scientist Relationship Specialty Start Date End Date Josi Capone MD [address] [place] [address] Referring Urology 08/08/23 Senior Environmental Scientist Relationship Specialty Start Date End Date Josi Capone MD [address] [place] [phone] Referring Urology 08/08/23 Senior Environmental Scientist Relationship Specialty Start Date End Date Josi Capone MD [address] [place] [phone] Referring Urology 08/08/23 Senior Environmental Scientist Relationship Specialty Start Date End Date Josi Capone MD [address] [place] [address] Referring Urology 08/08/23 Senior Environmental Scientist Relationship Specialty Start Date End Date Josi Capone MD [address] [place] [address] Referring Urology 08/08/23 Senior Environmental Scientist Relationship Specialty Start Date End Date Josi Capone MD [address] [place] [address] Referring Urology 08/08/23 Senior Environmental Scientist Relationship Specialty Start Date End Date Josi Capone MD [address] [place] [phone] Referring Urology 08/08/23 Senior Environmental Scientist Relationship Specialty Start Date End Date Josi Capone MD [address] [place] [address] Referring Urology 08/08/23 Senior Environmental Scientist Relationship Specialty Start Date End Date Josi Capone MD [address] [place] [address] Referring Urology 08/08/23 Senior Environmental Scientist Relationship Specialty Start Date End Date Josi Capone MD [address] [place] [phone] Referring Urology 08/08/23 Senior Environmental Scientist Relationship Specialty Start Date End Date Josi Capone MD [address] [place] [phone] Referring Urology 08/08/23 Reason for Visit (unrecogniz ed section and content) Reason Comments Diabetes Reason Onset Date Comments Results 05/09/2023 Reason Comments Nm Pet Request Reason Comments Radiology NM Reason Comments Patient Education Reason Comments Prostate Cancer Reason Onset Date Comments Simulation Request Form 09/20/2023 Reason Comments Orders Reason Comments Radiotherapy On-treatment Visit Reason Comments Prostate Cancer Treatment visit Goals (unrecognized section and content) Goals may be documented in a n alternate section Source Comments (unrecognize d section and content) In the event this informatio n is protected by the Federal Confidentiality of Alcohol and Drug Abuse Patient Records regulations: The Federal rules restrict any use of the information to criminally investigate or prosecute any alcohol or drug abuse patient.[facility] the event this information is protected by the Federal Confidentiality of Alcohol and Drug Abuse Patient Records regulations: The Federal rules restrict any use of the information to criminally investigate or prosecute any alcohol or drug abuse patient.[facility] the event this information is protected by the Federal Confidentiality of Alcohol and Drug Abuse Patient Records regulations: The Federal rules restrict any use of the information to criminally investigate or prosecute any alcohol or drug abuse patient.[facility] the event this information is protected by the Federal Confidentiality of Alcohol and Drug Abuse Patient Records regulations: The Federal rules restrict any use of the information to criminally investigate or prosecute any alcohol or drug abuse patient.[facility] the event this information is protected by the Federal Confidentiality of Alcohol and Drug Abuse Patient Records regulations: The Federal rules restrict any use of the information to criminally investigate or prosecute any alcohol or drug abuse patient.[facility] the event this information is protected by the Federal Confidentiality of Alcohol and Drug Abuse Patient Records regulations: The Federal rules restrict any use of the information to criminally investigate or prosecute any alcohol or drug abuse patient.[facility] the event this information is protected by the Federal Confidentiality of Alcohol and Drug Abuse Patient Records regulations: The Federal rules restrict any use of the information to criminally investigate or prosecute any alcohol or drug abuse patient.[facility] the event this information is protected by the Federal Confidentiality of Alcohol and Drug Abuse Patient Records regulations: The Federal rules restrict any use of the information to criminally investigate or prosecute any alcohol or drug abuse patient.[facility] the event this information is protected by the Federal Confidentiality of Alcohol and Drug Abuse Patient Records regulations: The Federal rules restrict any use of the information to criminally investigate or prosecute any alcohol or drug abuse patient.[facility] the event this information is protected by the Federal Confidentiality of Alcohol and Drug Abuse Patient Records regulations: The Federal rules restrict any use of the information to criminally investigate or prosecute any alcohol or drug abuse patient.[facility] the event this information is protected by the Federal Confidentiality of Alcohol and Drug Abuse Patient Records regulations: The Federal rules restrict any use of the information to criminally investigate or prosecute any alcohol or drug abuse patient.[facility] the event this information is protected by the Federal Confidentiality of Alcohol and Drug Abuse Patient Records regulations: The Federal rules restrict any use of the information to criminally investigate or prosecute any alcohol or drug abuse patient.[facility] the event this information is protected by the Federal Confidentiality of Alcohol and Drug Abuse Patient Records regulations: The Federal rules restrict any use of the information to criminally investigate or prosecute any alcohol or drug abuse patient.[facility] the event this information is protected by the Federal Confidentiality of Alcohol and Drug Abuse Patient Records regulations: The Federal rules restrict any use of the information to criminally investigate or prosecute any alcohol or drug abuse patient.[facility] the event this information is protected by the Federal Confidentiality of Alcohol and Drug Abuse Patient Records regulations: The Federal rules restrict any use of the information to criminally investigate or prosecute any alcohol or drug abuse patient.[facility] the event this information is protected by the Federal Confidentiality of Alcohol and Drug Abuse Patient Records regulations: The Federal rules restrict any use of the information to criminally investigate or prosecute any alcohol or drug abuse patient.[facility] the event this information is protected by the Federal Confidentiality of Alcohol and Drug Abuse Patient Records regulations: The Federal rules restrict any use of the information to criminally investigate or prosecute any alcohol or drug abuse patient.[facility]In the event this information is protected by the Federal Confidentiality of Alcohol and Drug Abuse Patient Records regulations: The Federal rules restrict any use of the information to criminally investigate or prosecute any alcohol or drug abuse patient.[facility] the event this information is protected by the Federal Confidentiality of Alcohol and Drug Abuse Patient Records regulations: The Federal rules restrict any use of the information to criminally investigate or prosecute any alcohol or drug abuse patient.[facility]In the event this information is protected by the Federal Confidentiality of Alcohol and Drug Abuse Patient Records regulations: The Federal rules restrict any use of the information to criminally investigate or prosecute any alcohol or drug abuse patient.[facility] the event this information is protected by the Federal Confidentiality of Alcohol and Drug Abuse Patient Records regulations: The Federal rules restrict any use of the information to criminally investigate or prosecute any alcohol or drug abuse patient.[facility] the event this information is protected by the Federal Confidentiality of Alcohol and Drug Abuse Patient Records regulations: The Federal rules restrict any use of the information to criminally investigate or prosecute any alcohol or drug abuse patient.[facility] the event this information is protected by the Federal Confidentiality of Alcohol and Drug Abuse Patient Records regulations: The Federal rules restrict any use of the information to criminally investigate or prosecute any alcohol or drug abuse patient.[facility]In the event this information is protected by the Federal Confidentiality of Alcohol and Drug Abuse Patient Records regulations: The Federal rules restrict any use of the information to criminally investigate or prosecute any alcohol or drug abuse patient.[facility]In the event this information is protected by the Federal Confidentiality of Alcohol and Drug Abuse Patient Records regulations: The Federal rules restrict any use of the information to criminally investigate or prosecute any alcohol or drug abuse patient.[facility]In the event this information is protected by the Federal Confidentiality of Alcohol and Drug Abuse Patient Records regulations: The Federal rules restrict any use of the information to criminally investigate or prosecute any alcohol or drug abuse patient.[facility]In the event this information is protected by the Federal Confidentiality of Alcohol and Drug Abuse Patient Records regulations: The Federal rules restrict any use of the information to criminally investigate or prosecute any alcohol or drug abuse patient.[facility]In the event this information is protected by the Federal Confidentiality of Alcohol and Drug Abuse Patient Records regulations: The Federal rules restrict any use of the information to criminally investigate or prosecute any alcohol or drug abuse patient.[facility] (unrecognized sect ion and content) No Status Records FoundNo Status Records FoundNo Status Records FoundNo Status Records FoundNo Status Records Found INFORMATION SOURCE (unrecogn ized section and content) DATE CREATED AUTHOR 08/21/2023 [facility] DATE CREATED AUTHOR AUTHOR'S ORGANIZ ATION 12/01/2023 [facility] DATE CREATED AUTHOR AUTHOR'S ORGANIZ ATION 12/05/2023 [facility] DATE CREATED AUTHOR AUTHOR'S ORGANROOPA ATION 12/07/2023 [facility] DATE CREATED AUTHOR AUTHOR'S ORGANIZ ATION 12/09/2023 [facility] FOR RECORDS PERTAINING TO PATIENTS WHO ARE OR HAVE BEEN ENROLLED IN A CHEMICAL DEPENDENCY/SUBSTANCEABUSE PROGRAM, SOME INFORMATION MAY BE OMITTED. This clinical summary was aggregated from multiple sources. Caution should be exercised in using it in the provision of clinical care. This summary normalizes information from multiple sources, and as a consequence, information in this document may materially change the coding, format and clinical context of patient data. In addition, data may be omitted in some cases. CLINICAL DECISIONS SHOULD BE BASED ON THE PRIMARY CLINICAL RECORDS. [facility] [employer] provides no warranty or guarantee of the accuracy or completeness of information in this document.
[2023-12-13 11:54] LABS: Glucometer 136 mg/dL (74-106)
[2023-12-13] MEDS: LACTATED RINGER'S SOLUTION 1,000 ML 50 ML IV (12:00)
[2023-12-13] MEDS: CEFAZOLIN SODIUM 2 GM/50 ML D5W PREMIX IV (12:49)
--- NOTE | 2023-12-13 13:15 | XR_ITS ---
[address] [address] Patient Name: YINA BOYER MRN: [id number] date: 1950 Sex: M Assigned Patient Location: [facility] Current Patient Location: Accession/Order Number: [id number] Exam Date: 12/13/2023 14:00 Report Date: 12/15/2023 07:55 At the request of: AGUSTÍN JOHANSEN Procedure: XR pelvis 1-2V EXAMINATION: XR pelvis 1-2V HISTORY: Prostate seed implant COMPARISON: No relevant comparison available. FINDINGS: 13.55 mgy. Single image BOWEL GAS PATTERN: Nonobstructed bowel gas pattern. CALCIFICATIONS: None significant. OTHER: Prostate seed implants. Contrast in the urinary bladder. XR/XR pelvis 1-2V IMPRESSION: Prostate brachytherapy implants Electronically authenticated by: ESTEE THAPA Date: 12/15/2023 07:55
[2023-12-13] MEDS: IOHEXOL 240 MG/ML - 50 ML VIAL INJ (13:37)
--- NOTE | 2023-12-13 14:45 | PM.URSON ---
Urology Surgery Operative Note Operative Note Procedure Date: 12/13/23 Time Out Performed: yes Pre-op Diagnosis: Prostate cancer Post-op Diagnosis: same as pre-op Procedures performed: 1. Cystoscopy 2. Brachytherapy seed implantation Anesthesia: General-LMA (Dr. Bañuelos) Primary Surgeon: Ines Pisano Complications: none Estimated blood loss (mL): 0 Findings: Moderate bilobar prostatomegaly, elevated bladder neck, 1-2+ trabeculated bladder. Bladder mildly asymmetric, higher right superior bladder on cystogram. No brachytherapy seeds or blood noted on post implant cystoscopy. 38 palladium seeds, 13 needles Specimens: none Indications for Procedures: 73 year old male with high risk prostate cancer diagnosed 06/2023 treated with EBRT here for brachyboost therapy with Dr. Vazquez. Risks were discussed including but not limited to bleeding, pain, infection, inability to void, bothersome urinary symptoms, seed migration, and need for additional procedures. Detailed description of Procedure: After informed consent was obtained, the patient was brought to the operating room and transferred onto the operating table in supine position. Sequential compression devices were placed on bilateral lower extremities. The patient received the appropriate dose of preoperative IV antibiotics and general anesthesia LMA was induced. They were positioned in modified dorsolithotomy with the appropriate pressure points padded, prepped and draped in the usual sterile fashion for this procedure. An operative safety timeout was performed confirming the patient's identity and procedure, and all present agreed to proceed. A 16Fr catheter was inserted into the urethra and bladder without difficulty and the bladder was drained. 200mL of dilute contrast was instilled into the bladder and the catheter removed. The scrotum was secured out of the field with Ioban. The implant bracket was brought to the end of the table and the ultrasound probe was passed per rectum followed by the grid. Patient position was adjusted to match the preoperative simulation images by Dr. Vazquez and his team. Two stabilizing needles were placed into the prostate via transperineal. Spot fluoroscopy was done to ensure position of needles and equipment in relation to the bladder. Next, preloaded needles of palladium 103 seeds were passed transperineally into the prostate under fluoroscopic and ultrasound guidance based on the predetermined locations according to the treatment plan. A total of 13 needles with 38 seeds were placed. Live dosimetry confirmed excellent coverage throughout the gland while avoiding the urethra. No evidence of seeds outside the prostate on fluoroscopy. The ultrasound and implant bracket were then removed. Next a 17Fr cystoscope was inserted per urethra and bladder. Moderate bilobar prostatic hypertrophy without evidence of bleeding, seeds, or spacers within the prostatic urethra or bladder. There were no bladder tumors, lesions or foreign bodies on sandoval cystoscopy. The bladder was filled and the cystoscope removed. The patient tolerated the procedure well without complication. The patient was awakened from anesthesia and sent to PACU in stable condition. Plan: Void prior to dc home. Pt knows to call or present to ER should he develop fever, chills, inability to urinate or excessive bleeding. Follow up as scheduled for post op symptom check. Will cont ADT with our office for at least 1 year. Follow up with Dr. Vazquez as scheduled. Other Provider present: Yes (Dr. Jaya Vazquez) Urinary Catheter Management Urinary Catheter Management Urethral: Cath placed during this visit: no
== END 2023-12-13 15:45 | disposition home or self-care (01) ==
PROVIDERS: PCP Internal Medicine; Visit Provider Urology
PROC: (CPT 55875; principal; 2023-12-13 12:30)
DX: C61 Malignant neoplasm of prostate (principal); J44.9 Chronic obstructive pulmonary disease, unspecified; R97.20 Elevated prostate specific antigen [PSA]; N40.1 Benign prostatic hyperplasia with lower urinary tract symptoms; R39.14 Feeling of incomplete bladder emptying; R35.0 Frequency of micturition; N32.89 Other specified disorders of bladder; Z79.84 Long term (current) use of oral hypoglycemic drugs; E78.5 Hyperlipidemia, unspecified; I10 Essential (primary) hypertension; E11.40 Type 2 diabetes mellitus with diabetic neuropathy, unspecified
CPT/HCPCS: 55875; 36415; 72170; 76965; 77290; 77332; 77778; 82948; C1715; C2635; C2640; J0690; J2250; J2405; J2704; J3010; Q9966